=== PATIENT | female | born 1950 | race Caucasian/White ===

== ENCOUNTER → 2017-01-29 | Outpatient (CLI) | payer MEDICARE, OTHER ==
--- NOTE | 2017-01-29 11:45 | USB ---
Reason for exam: follow-up at short interval from prior study. History: Patient is postmenopausal. Family history of breast cancer in paternal aunt. Physical Findings: Nurse did not find any significant physical abnormalities on exam. US Breast RT Right breast ultrasound includes all four quadrants, the retroareolar region and axilla. Finding demonstrates no cystic or solid lesion seen. These results were verbally communicated with the patient and result sheet given to the patient on 01/29/17. ASSESSMENT: Negative, BI-RAD 1 RECOMMENDATION: Return to routine screening mammogram schedule for both breasts. Back on schedule for May 2017.
== END ==
LOC: RADUSWWP 10:28
PROVIDERS: ATTEND Family Medicine
DX: N63 Unspecified lump in breast (principal)

== ENCOUNTER → 2017-12-15 | Outpatient (CLI) | payer MEDICARE, OTHER ==
--- NOTE | 2017-12-15 15:53 | BD ---
EXAMINATION TYPE: Axial Bone Density DATE OF EXAM: 12/15/2017 COMPARISON: NONE CLINICAL HISTORY: Postmenopausal female Height: 5 FT 5 1/2 IN Weight: 203 FRAX RISK QUESTIONS: RISK FACTORS HISTORY OF: Postmenopausal woman: AGE 51 Poor Health: FAIR MEDICATIONS: Thyroid Medications: YES Which medication: SYNTHROID How Lon YEARS Additional Medications: SYNTHROID ,GLUCOPHAGE,GLIMIPIRIDE, JANUVIA, ASPIRIN, KLONOPIN, ZETIA, LASIX, NORCO, LEVOTHYROXINE,LISINOPRIL, METOPROLOL, OMEPRAZOLE, KLOR-CON, P RAVASTATIN, Additional History: PT HAS DIABETES AND NEUROPATHY EXAM MEASUREMENTS: Bone mineral densitometry was performed using the [employer] System. Bone mineral density as measured about the Lumbar spine is: ----- L1-L4(G/cm2): 1.006 T Score Values are as follows: ----- L2: -2.5 ----- L3: -0.4 ----- L4: -1.3 ----- L1-L4: -1.5 Bone mineral density has: DECREASED -2.6 SINCE 2014 Bone mineral density about the R hip (g/cm2): 0.773 Bone mineral density about the L hip (g/cm2): 0.834 T Score values are as follows: -----R Neck: -1.5 -----L Neck: -1.9 -----R Total: -1.6 -----L Total: -2.0 Bone mineral density has: DECREASED -5.3 SINCE 2014 IMPRESSION: Osteopenia (T Score between -2.5 and -1). There is slightly increased risk of fracture and the patient may be considered for treatment. Re-Screen 2-5 years. NOTE: T-SCORE=SD OF THE YOUNG ADULT MEAN.
--- NOTE | 2017-12-17 12:05 | MM ---
Reason for exam: screening (asymptomatic). Last mammogram was performed 1 year and 7 months ago. History: Patient is postmenopausal. Family history of breast cancer in paternal aunt. Physical Findings: A clinical breast exam by your physician is recommended on an annual basis and results should be correlated with mammographic findings. MG 3D Screening Mammo W/Cad Bilateral CC and MLO view(s) were taken. Prior study comparison: May 06, 2016, bilateral MG 3d screening mammo w/cad. February 13, 2015, bilateral MG diagnostic mammo w CAD LATONYA. There are scattered fibroglandular densities. Benign appearing round bilateral calcifications. There is chronic nodularity in the right breast. There is no discrete abnormality. ASSESSMENT: Benign, BI-RAD 2 RECOMMENDATION: Routine screening mammogram of both breasts in 1 year.
== END | disposition home or self-care (01) ==
LOC: RADMAMWWP 11:54
PROVIDERS: ATTEND Family Medicine
DX: Z12.31 Encounter for screening mammogram for malignant neoplasm of breast (principal); M85.80 Other specified disorders of bone density and structure, unspecified site; E55.9 Vitamin D deficiency, unspecified
CPT/HCPCS: 77063; 77067; 77080

== ENCOUNTER → 2019-12-29 | Outpatient (CLI) | payer MEDICARE, OTHER ==
--- NOTE | 2019-12-29 11:54 | XR ---
EXAMINATION TYPE: XR knee complete bilateral DATE OF EXAM: 12/29/2019 COMPARISON: None HISTORY: Bilateral knee pain TECHNIQUE: Three-view bilateral knees FINDINGS: Left knee: There is some narrowing of the lateral compartment joint space of the left knee. Medial fe moral condylar spurring is present. Patellofemoral joint space narrowing is present with posterior s uperior posterior inferior patellar spurring is no joint effusion is evident. Right knee: There is narrowing of the medial compartment joint space with medial tibial plateau and f emoral condylar spurring. Mild patellofemoral joint space narrowing is present. No joint effusion is evident. IMPRESSION: 1. Mild to moderate degenerative changes bilateral knees, greater on the right than the left.
== END | disposition home or self-care (01) ==
LOC: RADXRYALE 10:46
PROVIDERS: ATTEND Physician Assistant Medical
DX: M17.0 Bilateral primary osteoarthritis of knee (principal); M25.562 Pain in left knee

== ENCOUNTER → 2020-04-24 | Outpatient (CLI) | payer MEDICARE, OTHER ==
--- NOTE | 2020-04-26 09:01 | BD ---
EXAMINATION TYPE: Axial Bone Density DATE OF EXAM: 04/24/2020 COMPARISON: 12.15.2017 CLINICAL HISTORY: 69 year old female. E55.9 Vit D, M89.8X0 Other Disorder of Bone Height: 65 Weight: 215 FRAX RISK QUESTIONS: Nothing to note here RISK FACTORS HISTORY OF: History of Wrist Fracture: LT WRIST A CHILD Family History of Osteoporosis: YES, SISTER AND MOTHER..NO HIP FXS Postmenopausal woman: YES AT 51 Lost more than 2 inches in height since high school: YES Frequent falls: UNSTEADY Hyperparathyroidism: NO Adrenal Insufficiency: NO MEDICATIONS: Thyroid Medications: YES, SYNTHYROID FOR 20 YRS Additional Medications: BP MEDS, JENUVIA, REFLUX PRN, CHOLESTEROL MEDS, VIT D AND CALCIUM Additional History: THYROIDECTOMY, DIABETES, HYPERTENSION EXAM MEASUREMENTS: Bone mineral densitometry was performed using the [employer] System. Bone mineral density as measured about the Lumbar spine is: ----- L1-L4(G/cm2): 0.988 T Score Values are as follows: ----- L1: -2.5 ----- L2: -1.7 ----- L3: -0.6 ----- L4: -1.7 ----- L1-L4: -1.6 Bone mineral density has: Increased 0.3% since study of: 12.15.2017 Bone mineral density about the R hip (g/cm2): 0.806 Bone mineral density about the L hip (g/cm2): 0.732 T Score values are as follows: -----R Neck: -1.7 -----L Neck: -2.1 -----R Total: -1.6 -----L Total: -2.2 Bone mineral density has: Decreased -1.7% since study of: FRAX %S: THERE IS A 17.8% CHANCE FOR MAJOR OSTEOPOROTIC FX AND A 3.4% FOR HIP...PROBABILITY MCKEON FX I N 10 YRS TIME IMPRESSION: Osteopenia (T Score between -2.5 and -1) remains present. There remains slightly increased risk of fracture and the patient may be considered for treatment. Re-Screen 2-5 years. NOTE: T-SCORE=SD OF THE YOUNG ADULT MEAN.
--- NOTE | 2020-04-30 11:01 | MM ---
Reason for exam: screening (asymptomatic). Last mammogram was performed 2 years and 4 months ago. History: Patient is postmenopausal. Family history of breast cancer in paternal aunt. Physical Findings: A clinical breast exam by your physician is recommended on an annual basis and results should be correlated with mammographic findings. MG 3D Screening Mammo W/Cad Bilateral CC and MLO view(s) were taken. XCCL view(s) were taken of the right breast. Prior study comparison: December 15, 2017, bilateral MG 3d screening mammo w/cad. May 06, 2016, bilateral MG 3d screening mammo w/cad. There are scattered fibroglandular densities. Benign appearing bilateral calcifications. No significant changes when compared with prior studies. ASSESSMENT: Benign, BI-RAD 2 RECOMMENDATION: Routine screening mammogram of both breasts in 1 year.
== END | disposition home or self-care (01) ==
LOC: RADMAMWWP 12:31
PROVIDERS: ATTEND Family Medicine
DX: Z12.31 Encounter for screening mammogram for malignant neoplasm of breast (principal); M85.80 Other specified disorders of bone density and structure, unspecified site; E55.9 Vitamin D deficiency, unspecified; M89.8X0 Other specified disorders of bone, multiple sites
CPT/HCPCS: 77063; 77067; 77080

== ENCOUNTER → 2020-10-08 | Outpatient (CLI) | payer MEDICARE, OTHER | END | disposition home or self-care (01) | LOC: LABPAT 12:06 | PROVIDERS: ATTEND Orthopaedic Surgery | DX: Z01.812 Encounter for preprocedural laboratory examination (principal) | CPT/HCPCS: 87070 ==

== ENCOUNTER → 2021-02-28 | Outpatient (CLI) | payer MEDICARE, OTHER ==
[2021-02-28 14:19] LABS: INR 0.9 (<1.2)
== END | disposition home or self-care (01) ==
LOC: LABPAT 13:25
PROVIDERS: ATTEND Orthopaedic Surgery
DX: Z01.812 Encounter for preprocedural laboratory examination (principal); M17.11 Unilateral primary osteoarthritis, right knee
CPT/HCPCS: 85610; 87070

== ENCOUNTER 2021-03-05 08:38 | Inpatient (IN) | payer MEDICARE, OTHER ==
[2021-02-27 12:00] VITALS: BMI 33.3
--- NOTE | 2021-03-04 11:49 | HP ---
HISTORY AND PHYSICAL CHIEF COMPLAINT: Right knee pain. HISTORY OF PRESENT ILLNESS: The patient is a 70-year-old retired female who presents with progressive right knee pain secondary to osteoarthrosis for the past several years despite previous treatments with medications, injections, and activity modification. She notes it severely limits her normal function and activities. PAST MEDICAL HISTORY: Significant type 2 diabetes, hypercholesteremia, hypertension, neuropathy, lymphedema, and reflux disease. PAST SURGICAL HISTORY: Negative. CURRENT MEDICATIONS: Glimepiride, Januvia, Klonopin, Lasix, Lunesta, metoprolol, Mirapex, omeprazole, Pro statin. ALLERGIES: She has allergies to CRESTOR, NEURONTIN, AND VYTORIN. FAMILY HISTORY: Significant for stroke and cancer. SOCIAL HISTORY: Significant for previous tobacco use. REVIEW OF SYSTEMS: Sixteen-point review of systems otherwise reviewed and is noncontributory. PHYSICAL EXAMINATION: On examination, the patient is approximately 5 foot 6, 190 pounds of endomorphic habitus. HEENT exam is nonfocal. Neck is supple. She has painless passive motion of the right hip. Straight leg raise is negative active motion right knee -12 to 105 degrees of flexion. She is tender about the medial greater than lateral joint line. Collaterals are stable, Tiffanie is negative, Radha's is equivocal. She has genu varum alignment. Her distal neurovascular exam appears intact in the right lower extremity. Weightbearing notch, lateral and Merchant views of the right knee obtained in the office show severe medial greater than lateral compartment osteoarthrosis. It showed bone-on- bone changes and subchondral sclerosis. IMPRESSION: Right knee severe tricompartmental osteoarthrosis. RECOMMENDATIONS: I talked to the patient at length regarding her condition and treatment options. At this point, she is having persistent pain and mechanical symptoms that limit her despite extensive previous conservative measures. After thorough discussion, she opts to proceed with surgery. We will plan to proceed with right total knee arthroplasty. We will institute DVT prophylaxis postoperatively. MMODL / IJN: [id number] / MTDD
[~2021-03-05 08:38] MED LIST: ACETAMINOPHEN TAB 500 MG TAB PO PRN; DEXAMETHASONE SOD PHOSPHATE 4 MG/ML 1 ML VIAL IV ONE; MELOXICAM 7.5 MG TAB PO PRN; MIDAZOLAM 2 MG/2 ML VIAL IV PRN; ONDANSETRON 4 MG/2 ML VIAL IVP ONE; TRANEXAMIC ACID 1,000 MG in SODIUM CHLORIDE 0.9% 100 ML IVPB PRN
[2021-03-05] MEDS: LACTATED RINGERS 1,000 ML IV SCH ×2 (09:26→10:20)
[2021-03-05 09:43] LABS: Glucose,Whole Blood 180 mg/dL (75-99)
[2021-03-05] MEDS ORDERED: MIDAZOLAM 2 MG/2 ML VIAL IVP ONE ×2 (09:50→09:52)
[2021-03-05] MEDS ORDERED: ROPIVACAINE 5 MG/ML 30 ML VIAL ONE ×2 (10:19)
[2021-03-05] MEDS ORDERED: ePHEDrine SULFATE/0.9% NACL/PF 50 MG/5 ML SYRINGE IV ONE ×2 (10:19)
[2021-03-05] MEDS ORDERED: SUCCINYLCHOLINE CHLORIDE 100 MG/5 ML SYR IV ONE ×2 (10:19)
[2021-03-05] MEDS ORDERED: HYDROmorphone (PF) 1 MG/ML ONE ×2 (10:19)
[2021-03-05] MEDS ORDERED: SODIUM CHLORIDE 0.9% 100 ML BAG ONE (10:19)
[2021-03-05] MEDS ORDERED: LIDOCAINE 1% INJ 10MG/ML (20 ML MDV) ONE ×2 (10:19)
[2021-03-05] MEDS ORDERED: fentaNYL (PF) 50 MCG/ML 2 ML AMP ONE ×2 (10:19)
[2021-03-05] MEDS ORDERED: TRANEXAMIC ACID 1,000 MG/10 ML VIAL ONE (10:19)
[2021-03-05] MEDS ORDERED: PROPOFOL 10 MG/ML 20 ML VIAL IV ONE ×2 (10:19)
[2021-03-05] MEDS ORDERED: ceFAZolin 1,000 MG in SODIUM CHLORIDE 0.9% 1,000 ML IRRIGATION ONE (10:48)
[2021-03-05] MEDS ORDERED: LACTATED RINGERS 1,000 ML IV ONE (11:05)
[2021-03-05] MEDS ORDERED: HYDROcodone/APAP 5-325MG 1 EACH TAB PO PRN (11:58)
[2021-03-05] MEDS ORDERED: NALOXONE 0.4 MG/ML 1 ML VIAL IV PRN (11:58)
--- NOTE | 2021-03-05 12:25 | P.OP ---
Date of Procedure: 03/05/21 Preoperative Diagnosis: Right knee severe tricompartmental osteoarthrosis Postoperative Diagnosis: Same Procedure(s) Performed: Right total knee arthroplastycementedposterior stabilized Implants: Depuy Attune size 6 narrow cemented femoral component, size 5 cemented tibial component, 9 mm articular surface, 32 mm cemented patellar component. This is a posterior stabilized implant. Anesthesia: [facility] Surgeon: Delvin Cheng Glass Furnace Tender #1: Mikie Bah Estimated Blood Loss (ml): 50 Pathology: other (Bone fragments) Condition: stable Disposition: PACU Indications for Procedure: The patient's a 70-year-old female who presents with progressive right knee pain secondary to osteoarthrosis despite conservative measures. A discussion the risks and benefits of operative intervention versus continued conservative measures was made with the patient. She opted to proceed with surgery. Operative risks to include infection, neurovascular injury, development of blood clots, fracture, possible component failure/loosening and need for subsequent procedures was discussed. Informed consent was obtained. Operative Findings: As below Description of Procedure: The patient was brought to the operating room, and after induction of spinal anesthesia the right lower extremity was prepped and draped in a normal fashion. The tourniquet was inflated to 270 mm marker. A longitudinal incision extending 3 finger breaths above the superior pole of patella extending to the medial aspect the tibial tubercle was then made. The skin and subcutaneous tissues were divided sharply. Electrocautery was used for hemostasis. A medial parapatellar arthrotomy was performed. The medial soft tissues to include the superficial and deep portions of the medial collateral ligament were elevated subperiosteally. The patella was everted. A portion of the retropatellar fat pad was excised sharply. The anterior cruciate ligament was sacrificed. Blunt retractors were placed. A starting hole was made in the distal femur 1 cm anterior to the posterior cruciate ligament origin. An intramedullary femoral guide was then inserted planning on 5 valgus distal cut with 9 mm distal resection. The cutting block was pinned in place. The distal cut was then made. The posterior referencing sizing guide was utilized. I felt size 6 narrow was most appropriate. 3 of external rotation was built into the system and verified off the trans-epicondylar axis and the posterior condyles. The cutting block was pinned in place. The anterior, posterior, and chamfer cuts then made. Bone fragments were removed. The intercondylar guide was placed and the notch cut was made with a sagittal saw. The bone block was removed in one fragment. The trial component was then placed. There is good anterior to posterior and medial to lateral fit. The distal peg holes were drilled. The trial component was removed. Attention was then paid towards preparing the proximal femur. An extra medullary guide was utilized in line with the tibial shaft and second metatarsal distally. I planned on 2 mm resection from the medial compartment. The cutting block was pinned in place. The proximal tibial cut was then made. The bone was removed in one fragment. The remnants of the medial and lateral menisci were excised at the capsular junction with electrocautery. The tibia sized most appropriately at size 5. The trial femoral and tibial components were placed along with a 9 mm articular surface. I was able to obtain full flexion and extension with internal and external rota tion. After several flexion and extension cycles, the tibial rotation was marked with electrocautery line with the medial one third of the tibial tubercle. Attention was then paid towards preparing the patella. A patella reamer was utilized taking stem to 14 mm of bone stock. A good flush cut was made. The patella sized most appropriately 32 mm. The peg holes were drilled. The trial components placed. I had good patellofemoral tracking with no hands technique. The trial components were then removed. The tibia was prepared in the appropriate rotation with appropriate drill and keel punch. The posterior osteophytes were removed with a curved osteotome. The flexion and extension gaps were checked and felt to be symmetric at 9 mm. A trial components were then removed. The bony surfaces were prepared with pulsatile lavage and dried. The tibial component was then cemented place was fully seated. Excess cement was removed. The femoral component cemented place and was fully seated. Excess cement was removed. The trial 9 mm articular surface was placed and the knee was put in full extension. The patella component was cemented place. After the cement had sufficiently hardened, the knee was again taken through a range of motion. Again I was able to obtain full flexion and extension with varus and valgus stress. The trial 9 mm articular surface was removed and the final one inserted. This was fully seated. Care was taken to avoid any soft tissue interposition. Pulsatile lavage was again utilized. The medial parapatellar arthrotomy was closed with #2 Ethibond suture. The tourniquet was deflated with approximately 60 minutes total tourniquet time. Final hemostasis was obtained with the cautery. There was minimal bleeding therefore a deep drain was not placed. The subcutaneous tissues were reapproximated with interrupted 2-0 Vicryl sutures. The skin was reapproximated with 3-0 subcuticular strata fix suture. Skin tape and adhesive was applied. A sterile dressing was applied. The patient was awoken from sedation and transferred to recovery room in good condition. Blood loss was estimated at 50 mL. No complications were incurred. Sponge and needle counts were correct at the end of the case. Mikie BATISTA assisted during the major components of this case to include exposure, bone resection, implantation, and closure.
[2021-03-05] MEDS: fentaNYL (PF) 50 MCG/ML 2 ML AMP IV PRN ×4 (12:33→13:01)
[2021-03-05 12:51] LABS: Glucose,Whole Blood 223 mg/dL (75-99)
[2021-03-05] MEDS ORDERED: diphenhydrAMINE 50 MG/ML 1 ML VIAL ONE (12:52)
[2021-03-05] MEDS ORDERED: INSULIN ASPART (NovoLOG) 100 UNIT/ML VIAL SQ ONE (12:58)
--- NOTE | 2021-03-05 13:02 | XR ---
EXAMINATION TYPE: XR knee limited RT DATE OF EXAM: 03/05/2021 COMPARISON: 12/29/2019 HISTORY: Postop knee replacement TECHNIQUE: 2 view right knee FINDINGS: Tibial and femoral components of the endplates. No significant joint effusion is evident. P ostsurgical soft tissue changes are noted. No acute fractures are evident. IMPRESSION: 1. No acute fractures post knee replacement
--- NOTE | 2021-03-05 13:16 | P.ANPRN ---
Procedure Note - Anesthesia - Nerve Block Performed Right Adductor Canal Time Out Performed: Yes (09:48) Date of Procedure: 03/05/21 Procedure Start Time: 48 Procedure Stop Time: 10:01 Location of Patient: PreOp Indication: Acute Post-Operative Pain, Requested by Surgeon (Dr Thierno Kraft) Sedation Type: Sedate with meaningful contact maintained Preparation: Sterile Prep, Sterile Dressing Position: Supine Catheter: Indwelling Needle Types: Pajunk Needle Gauge: 21 Ultrasound used to visualize needle placement: Yes Ultrasound used to observe medication spread: Yes Injectate: 0.5% Ropivacaine (see comment for volume) (15cc) Blood Aspirated: No Pain Paresthesia on Injection Noted: No Resistance on Injection: Normal Image Stored and Saved: Yes Events: Uneventful and Well Tolerated
--- NOTE | 2021-03-05 13:24 | P.ANPRN ---
Procedure Note - Anesthesia - Nerve Block Performed Right iPack Time Out Performed: Yes Date of Procedure: 03/05/21 Procedure Start Time: 10:02 Procedure Stop Time: 10:11 Location of Patient: PreOp Indication: Acute Post-Operative Pain, Requested by Surgeon (Dr Cheng) Sedation Type: Sedate with meaningful contact maintained Preparation: Sterile Prep Position: Supine Catheter: None Needle Types: Pajunk Needle Gauge: 21 Ultrasound used to visualize needle placement: Yes Ultrasound used to observe medication spread: Yes Injectate: 0.5% Ropivacaine (see comment for volume) (15cc) Blood Aspirated: No Pain Paresthesia on Injection Noted: No Resistance on Injection: Normal Image Stored and Saved: Yes Events: Uneventful and Well Tolerated
[2021-03-05] MEDS: HYDROmorphone 0.5 MG/0.5 ML SYRINGE IVP PRN ×2 (13:58→20:38)
[2021-03-05] MEDS ORDERED: PANTOPRAZOLE 40 MG TABLET PO PRN (15:26)
[2021-03-05 16:33] LABS: Glucose,Whole Blood 385 mg/dL (75-99)
[2021-03-05] MEDS: HYDROcodone/APAP 7.5-325MG 1 EACH TAB PO PRN (16:54)
[2021-03-05] MEDS: INSULIN ASPART (NovoLOG) 100 UNIT/ML VIAL SQ SCH ×2 (16:55→21:18)
--- NOTE | 2021-03-05 18:20 | CONS ---
CONSULTATION DATE OF SERVICE: 03/05/2021 REASON FOR CONSULTATION: Advice regarding hypertension, hyperlipidemia, and chronic smoking. HISTORY OF PRESENT ILLNESS: This 70-year-old with the past medical history of diabetes, GERD, DJD being followed by Thierno Patton in the outpatient setting, underwent right total knee arthroplasty by Dr. Cheng. There is no history of fever or rigors. No history of headache, loss of consciousness, seizures, chest pain, palpitations. Complains of some minimal knee pain at this time. PAST MEDICAL: Diabetes, GERD, hypertension, history of DJD, history of pneumonia, history hypothyroidism. MEDICATIONS: Home medications are reviewed and include , Klonopin, Pravachol, Mirapex, K-Dur, Prilosec, Synthroid, [place],, Lopressor, , aspirin. Doses are reviewed. ALLERGIES: VYTORIN, NEURONTIN, LYRICA, CRESTOR, MORPHINE. FAMILY HISTORY: History of lung cancer in the family. SOCIAL HISTORY: Remote history of smoking. No history of alcohol intake. REVIEW OF SYSTEMS: ENT No history of diminished hearing or vision. CARDIOVASCULAR No angina or palpitations. RESPIRATORY No cough, no hemoptysis. GI No nausea, vomiting, or diarrhea. No dysuria or hematuria. NERVOUS No numbness or weakness. ALLERGY/IMMUNOLOGY No asthma or hayfever. MUSCULOSKELETAL As mentioned earlier. HEMATOLOGY/ONCOLOGY Negative. ENDOCRINE As mentioned earlier. CONSTITUTIONAL As mentioned earlier. DERMATOLOGY Negative. RHEUMATOLOGY Negative, PSYCHIATRY As mentioned earlier. PHYSICAL EXAMINATION: Alert and oriented x3. Pulse 84, blood pressure 150/85, respiration 18, temperature 97.8, pulse ox 98% on room air. HEENT: Conjunctivae normal. Oral mucosa moist. NECK: No jugular venous distention. No lymph node enlargement. CARDIOVASCULAR: S1, S2, muffled. No S3, no S4, RESPIRATORY: Diminished breath sounds at the bases. No rhonchi, no crackles. ABDOMEN: Soft. LEGS: Status post knee arthroplasty. NERVOUS SYSTEM: Higher functions as mentioned earlier. Moves all four limbs. No focal motor or sensory deficits. LYMPHATICS: No lymph node in neck or axilla. SKIN: No rash. JOINTS: No active deforming arthropathy. Otherwise, as mentioned earlier. LAB STUDIES: Accu-Cheks 182, 223. The previous labs are hematology and coags within normal limits prior to admission. ASSESSMENT: 1. Status post right total knee joint arthroplasty for severe degenerative joint disease. 2. Diabetes mellitus type 2. 3. Gastroesophageal reflux disease. 4. Hyperlipidemia. 5. Hypertension. 6. History of pneumonia. 7. History of hypothyroidism. 8. History of DJD. 9. History of anxiety, depression. 10.History of nicotine dependence. 11.Obesity with body mass of 36.5. 12.FULL CODE. RECOMMENDATIONS: In this 70-year-old woman who presented with multiple complex medical issues, at this time I recommend to continue current symptomatic treatment, resume the home medication. Monitor blood sugars closely. DVT prophylaxis. Incentive spirometry. We will follow the patient closely with you. The patient will be asked to follow with primary physician after discharge. Thank you, Dr. Cheng, for letting us participate in this patient's care. ERNIE / GALLITON: [id number] / MTDD
[2021-03-05] MEDS: SENNOSIDES-DOCUSATE SODIUM 1 EACH TAB PO SCH (20:39)
[2021-03-05] MEDS: clonazePAM 1 MG TAB PO SCH (20:39)
[2021-03-05] MEDS: PRAVASTATIN SODIUM 80 MG TAB PO SCH (20:39)
[2021-03-05] MEDS: METOPROLOL TARTRATE 50 MG TAB PO SCH (20:39)
[2021-03-05] MEDS: PRAMIPEXOLE 0.5 MG TAB PO SCH (20:39)
[2021-03-05] MEDS: EZETIMIBE 10 MG TAB PO SCH (20:39)
[2021-03-05] MEDS: lisinopriL 5 MG TAB PO SCH (20:39)
[2021-03-05] MEDS: NON FORMULARY DRUG (Omega-3 Acid Ethyl Esters [Lovaza] 1 GM Capsule) PO SCH (20:40)
[2021-03-05 20:53] LABS: Glucose,Whole Blood 367 mg/dL (75-99)
[2021-03-05] MEDS: TEMAZEPAM 15 MG CAP PO SCH (21:18)
[2021-03-06] MEDS: HYDROcodone/APAP 7.5-325MG 1 EACH TAB PO PRN ×2 (00:07→05:50)
[2021-03-06] MEDS: LACTATED RINGERS 1,000 ML IV SCH (04:49)
[2021-03-06] MEDS: LEVOTHYROXINE 125 MCG TAB PO SCH (05:35)
--- NOTE | 2021-03-06 07:28 | P.PN ---
Progress Note - Text Progress Note Date: 03/06/21 Postoperative day # 1 status post total knee arthroplasty, and adductor canal catheter placed for postoperative analgesia, a catheter was told yesterday by mistake, and currently complaining of pain is not controlled with the oral [place], recommend IV Dilaudid 0.5 mg every 2 hours when necessary, and [place] 10/325 every 6 hours when necessary once patient discharged home
[2021-03-06] MEDS: HYDROmorphone 0.5 MG/0.5 ML SYRINGE IVP PRN ×3 (07:34→17:57)
[2021-03-06] MEDS ORDERED: HYDROcodone/APAP 10-325MG 1 EACH TAB PO PRN (07:38)
[2021-03-06] MEDS: LINAGLIPTIN 5 MG TABLET PO SCH (07:40)
[2021-03-06] MEDS: METOPROLOL TARTRATE 50 MG TAB PO SCH ×2 (07:40→20:18)
[2021-03-06] MEDS: clonazePAM 1 MG TAB PO SCH ×2 (07:41→20:18)
[2021-03-06] MEDS: INSULIN ASPART (NovoLOG) 100 UNIT/ML VIAL SQ SCH ×4 (07:41→20:35)
[2021-03-06] MEDS: POTASSIUM CHLORIDE ER 10 MEQ TAB.ER.PRT PO SCH (07:41)
[2021-03-06] MEDS: FUROSEMIDE 20 MG TAB PO SCH (07:41)
[2021-03-06] MEDS: ASPIRIN 81 MG PO SCH (07:41)
[2021-03-06] MEDS: GLIMEPIRIDE 1 MG TAB PO SCH (07:42)
[2021-03-06] MEDS: ENOXAPARIN 30 MG/0.3 ML SYRINGE SQ SCH ×2 (07:42→20:18)
[2021-03-06 07:46] LABS: Glucose,Whole Blood 209 mg/dL (75-99)
[2021-03-06] MEDS: NON FORMULARY DRUG (Omega-3 Acid Ethyl Esters [Lovaza] 1 GM Capsule) PO SCH ×2 (07:53→20:19)
--- NOTE | 2021-03-06 10:26 | P.PN ---
Subjective Progress Note Date: 03/06/21 Principal diagnosis: Right knee osteoarthritis Patient was seen at bedside this morning. Patient is lying semirecumbent in bed. Patient says she has been in a lot of pain since surgery yesterday. Patient says most her pain is all around her knee. She describes pain in her knee as burning sensation. She says she has been having a difficult time getting her pain under control. She says she has been icing her knee throughout the night. She says she was only able to sleep 3 hours. She says she is not ready to go home today. Patient says she has not had bowel movement yet, however, patient says she has passed gas. Patient denies chest pain, fever, chest breath, nausea, vomiting, change in vision, loss of bowel/bladder control. Objective - Vital Signs Vital signs: Vital Signs Temp 97.6 F 03/06/21 08:00 Pulse 95 03/06/21 08:00 Resp 13 03/06/21 08:00 BP 146/68 03/06/21 08:00 Pulse Ox 98 03/06/21 08:00 Intake & Output 03/05/21 03/06/21 03/06/21 18:59 06:59 18:59 Intake Total 2141 Output Total 50 Balance 1 Weight 99.4 kg Intake: IV 1601 Oral 540 Output: Estimated Blood Loss 50 Other: Voiding Method Toilet # Voids 1 1 - Exam Right knee: Incision is clean, dry, and intact. The exofin fusion tape is in good condition. There is moderate soft tissue swelling and ecchymosis surrounding the medial and lateral aspects of the incision. Calf is soft, no tenderness with palpation. Plantar flexion, dorsiflexion, EHL, FHL are intact. Sensory exam to light touch throughout the extremity is intact, dorsal pedis pulses 2+. - Labs Labs: Abnormal Lab Results - Last 24 Hours (Table) 03/05/21 03/05/21 03/05/21 Range/Units 12:50 16:30 20:46 POC Glucose (mg/dL) 223 H 385 H 367 H (75-99) mg/dL 03/06/21 Range/Units 07:30 POC Glucose (mg/dL) 209 H (75-99) mg/dL Assessment and Plan Assessment: Right knee osteoarthritis Plan: 1. Right knee osteoarthritis - right total knee arthroplasty performed yesterday, 03/05/2021. Patient seen at bedside this morning. Patient in moderate amount of pain this morning. Plan to adjust some pain medications. 2. Appreciate medical management 3. Pain management - switch from Hydrocodome 10 to Oxycodone 5mg/325mg. Dilaudid 0.5 mg IVPB only when necessary 4. GI prophylaxis/DVT prophylaxis - senna. Lovenox. 5. Encourage incentive spirometer use 6. PT/OT - weightbearing as tolerated with walker for assistance. 7. Discharge planning - plan to discharge home tomorrow versus Thursday. Pain needs to be under better control before discharging home Time with Patient: Less than 30
[2021-03-06 10:58] LABS: Basophils # (A) 0.01 X 10*3/uL (0.00-0.10); Basophils % (A) 0.1 %; Eosinophils # (A) 0 X 10*3/uL (0.04-0.35); Eosinophils % (A) 0 %; HCT 31.2 % (37.2-46.3); HGB 9.8 g/dL (12.0-15.0); Lymphocytes # (A) 1.14 X 10*3/uL (0.90-5.00); Lymphocytes % (A) 10.3 %; MCH 30.4 pg (27.0-32.0); MCHC 31.4 g/dL (32.0-37.0); MCV 96.9 fL (80.0-97.0); Mean Platelet Volume 10.2 fL (9.5-12.2); Monocytes # (A) 1.16 X 10*3/uL (0.20-1.00); Monocytes % (A) 10.5 %; Neutrophils # (A) 8.67 X 10*3/uL (1.80-7.70); Neutrophils % (A) 78.7 %; Platelet Count 242 X 10*3/uL (140-440); RBC 3.22 X 10*6/uL (4.10-5.20); RDW 13.5 % (11.5-14.5); WBC 11.02 X 10*3/uL (4.50-10.00)
[2021-03-06] MEDS: oxyCODONE-APAP 5-325MG 1 EACH TAB PO PRN ×3 (11:17→20:18)
[2021-03-06 12:10] LABS: Glucose,Whole Blood 197 mg/dL (75-99)
--- NOTE | 2021-03-06 14:26 | PN ---
PROGRESS NOTE DATE OF SERVICE: 03/06/2021 This 70-year-old woman who was admitted with right total knee arthroplasty is being closely monitored. Patient is complaining of some pain. No chest pain. No palpitations. No fever. PHYSICAL EXAMINATION: Alert and oriented x3. Pulse 95, blood pressure 146/58, respirations 13, temperature 97.6, pulse ox 98% on room air. HEENT: Conjunctivae normal. NECK: No jugular venous distention. CARDIOVASCULAR: S1, S2 muffled. RESPIRATION: Breath sounds diminished at the bases. No rhonchi. No crackles. ABDOMEN: Soft. LEGS: Status post right knee arthroplasty. NERVOUS SYSTEM: No focal deficit. LABS: WBC 11.2, hemoglobin 9.9, glucose 209 and 197. ASSESSMENT: 1. Status post right total knee arthroplasty for severe degenerative joint disease. 2. Diabetes mellitus, type 2. 3. Gastroesophageal reflux disease. 4. Hyperlipidemia. 5. Hypertension. 6. History of pneumonia. 7. History of hypothyroidism. 8. History of degenerative joint disease. 9. Anxiety, depression. 10.History of nicotine dependence. 11.Obesity with body mass index of 36.5. 12.FULL CODE. RECOMMENDATIONS AND DISCUSSION: I recommend to continue current medications, continue with symptomatic treatment. Otherwise, pain management, DVT prophylaxis. Closely follow with Orthopedic Surgery. Monitor blood sugars closely. Continue the insulin and corrective scale also. Further recommendations to follow. MMODL / IJN: [id number] /
[2021-03-06 16:47] LABS: Glucose,Whole Blood 142 mg/dL (75-99)
[2021-03-06] MEDS: SENNOSIDES-DOCUSATE SODIUM 1 EACH TAB PO SCH (20:17)
[2021-03-06] MEDS: PRAVASTATIN SODIUM 80 MG TAB PO SCH (20:17)
[2021-03-06] MEDS: TEMAZEPAM 15 MG CAP PO SCH (20:18)
[2021-03-06] MEDS: lisinopriL 5 MG TAB PO SCH (20:18)
[2021-03-06] MEDS: PRAMIPEXOLE 0.5 MG TAB PO SCH (20:19)
[2021-03-06] MEDS: EZETIMIBE 10 MG TAB PO SCH (20:19)
[2021-03-06 20:26] LABS: Glucose,Whole Blood 264 mg/dL (75-99)
[2021-03-07] MEDS: oxyCODONE-APAP 5-325MG 1 EACH TAB PO PRN ×4 (00:28→22:19)
[2021-03-07] MEDS: HYDROmorphone 0.5 MG/0.5 ML SYRINGE IVP PRN ×5 (03:41→18:16)
[2021-03-07] MEDS: LACTATED RINGERS 1,000 ML IV SCH (05:12)
[2021-03-07] MEDS: LEVOTHYROXINE 125 MCG TAB PO SCH (05:58)
[2021-03-07 07:24] LABS: Glucose,Whole Blood 220 mg/dL (75-99)
[2021-03-07] MEDS: METOPROLOL TARTRATE 50 MG TAB PO SCH ×2 (07:31→22:19)
[2021-03-07] MEDS: ASPIRIN 81 MG PO SCH (07:32)
[2021-03-07] MEDS: clonazePAM 1 MG TAB PO SCH ×2 (07:33→22:20)
[2021-03-07] MEDS: ENOXAPARIN 30 MG/0.3 ML SYRINGE SQ SCH ×2 (07:33→22:20)
[2021-03-07] MEDS: LINAGLIPTIN 5 MG TABLET PO SCH (07:33)
[2021-03-07] MEDS: INSULIN ASPART (NovoLOG) 100 UNIT/ML VIAL SQ SCH ×4 (07:33→22:21)
[2021-03-07] MEDS: POTASSIUM CHLORIDE ER 10 MEQ TAB.ER.PRT PO SCH (07:33)
[2021-03-07] MEDS: FUROSEMIDE 20 MG TAB PO SCH (07:33)
[2021-03-07] MEDS: NON FORMULARY DRUG (Omega-3 Acid Ethyl Esters [Lovaza] 1 GM Capsule) PO SCH ×2 (07:34→22:22)
[2021-03-07] MEDS: GLIMEPIRIDE 1 MG TAB PO SCH (08:29)
[2021-03-07] MEDS ORDERED: CYCLOBENZAPRINE 10 MG TAB PO PRN (08:43)
[2021-03-07] MEDS ORDERED: ACETAMINOPHEN TAB 325 MG TAB PO PRN (08:45)
--- NOTE | 2021-03-07 08:54 | P.PN ---
Subjective Progress Note Date: 03/07/21 Principal diagnosis: Right knee osteoarthritis Patient was seen at bedside this morning. Patient is lying semirecumbent in bed. Patient says she has been in a lot of pain since surgery. Patient says most her pain is all around her knee. She describes pain in her knee as burning sensation. Patient says ice does help with this somewhar. She says she has been having a difficult time getting her pain under control. She says she has been icing her knee throughout the night. She says she was able to sleep a litle better last night. She says she is not ready to go home today. Patient says she has not had bowel movement yet, however, patient says she has passed gas. Patient denies chest pain, fever, chest breath, nausea, vomiting, change in vision, loss of bowel/bladder control. Objective - Vital Signs Vital signs: Vital Signs Temp 98.4 F 03/07/21 07:33 Pulse 97 03/07/21 07:33 Resp 16 03/07/21 07:33 BP 132/85 03/07/21 07:33 Pulse Ox 93 L 03/07/21 07:33 Intake & Output 03/06/21 03/07/21 03/07/21 18:59 06:59 18:59 Intake Total 540 400 Balance 540 400 Intake: Intake, IV Titration 160 Amount Lactated Ringers 1,000 ml 160 @ 20 mls/hr IV .Q24H [facility] Rx#:[id number] Oral 540 240 Other: Voiding Method Toilet Diaper # Voids 1 4 - Exam Right knee: Incision is clean, dry, and intact. The exofin fusion tape is in good condition. There is moderate soft tissue swelling and ecchymosis surrounding the medial and lateral aspects of the incision. Calf is soft, no tenderness with palpation. Plantar flexion, dorsiflexion, EHL, FHL are intact. Sensory exam to light touch throughout the extremity is intact, dorsal pedis pulses 2+. - Labs CBC & Chem 7: 03/06/21 06:43 Labs: Abnormal Lab Results - Last 24 Hours (Table) 03/06/21 03/06/21 03/06/21 Range/Units 06:43 12:05 16:42 WBC 11.02 H (4.50-10.00) X 10*3/uL RBC 3.22 L (4.10-5.20) X 10*6/uL Hgb 9.8 L (12.0-15.0) g/dL Hct 31.2 L (37.2-46.3) % MCHC 31.4 L (32.0-37.0) g/dL Neutrophils # 8.67 H (1.80-7.70) X 10*3/uL Monocytes # 1.16 H (0.20-1.00) X 10*3/uL Eosinophils # 0 L (0.04-0.35) X 10*3/uL POC Glucose (mg/dL) 197 H 142 H (75-99) mg/dL 03/06/21 03/07/21 Range/Units 20:24 07:23 WBC (4.50-10.00) X 10*3/uL RBC (4.10-5.20) X 10*6/uL Hgb (12.0-15.0) g/dL Hct (37.2-46.3) % MCHC (32.0-37.0) g/dL Neutrophils # (1.80-7.70) X 10*3/uL Monocytes # (0.20-1.00) X 10*3/uL Eosinophils # (0.04-0.35) X 10*3/uL POC Glucose (mg/dL) 264 H 220 H (75-99) mg/dL Assessment and Plan Assessment: Right knee osteoarthritis POD #2 s/p right total knee arthroplasty Plan: 1. Right knee osteoarthritis - right total knee arthroplasty performed 03/05/2021. Patient seen at bedside this morning. Patient in moderate amount o f pain this morning. Plan to adjust some pain medications. Continue to elevate and ice knee throughout day 2. Appreciate medical management 3. Pain management - Continue Oxycodone 5mg/325mg q4h/prn. Add Flexeril 10 mg BID for muscle spasms. Add Tylenol 650 q6h for pain control between Oxycodone doses. Do not go over 4,000mg tylenol per day. Dilaudid 0.5 mg IVPB only when necessary 4. GI prophylaxis/DVT prophylaxis - senna. Lovenox. 5. Encourage incentive spirometer use 6. PT/OT - weightbearing as tolerated with walker for assistance. 7. Discharge planning - plan to discharge home tomorrow. Pain needs to be under better control before discharging home Time with Patient: Less than 30
[2021-03-07 11:49] LABS: Glucose,Whole Blood 194 mg/dL (75-99)
--- NOTE | 2021-03-07 13:56 | PN ---
PROGRESS NOTE DATE OF SERVICE: 03/07/2021 This 70-year-old woman who was admitted after right total knee arthroplasty is improving significantly. The patient is complaining of some pain. PT/OT evaluated the patient for possible rehab. No chest pain. No palpitations. No fever. PHYSICAL EXAMINATION: Alert and oriented x3. Pulse is 97, blood pressure 132/84, respiration 16, temperature 98.4, pulse ox 93% on room air. HEENT: Conjunctivae normal. NECK: No jugular venous distention. CARDIOVASCULAR: S1, S2 muffled. RESPIRATION: Breath sounds diminished at the bases. Scattered rhonchi. ABDOMEN: Soft. NERVOUS SYSTEM: No focal deficit. LABS: Accu-Cheks noted. WBC 11.02, hemoglobin 9.8. ASSESSMENT: 1. Status post right total knee arthroplasty for severe degenerative joint disease. 2. Diabetes mellitus, type 2. 3. Gastroesophageal reflux disease. 4. Hypertension. 5. Hyperlipidemia. 6. History of pneumonia. 7. History of hypothyroidism. 8. History of degenerative joint disease. 9. History of anxiety, depression. 10.History of nicotine dependence. 11.Obesity with body mass index of 36.5. 12.FULL CODE. RECOMMENDATIONS AND DISCUSSION: I recommend to continue current medications, continue symptomatic treatment. I would recommend a portable chest x-ray for complete evaluation. Otherwise, repeat labs tomorrow. Further recommendations to follow. Blood sugars are improving. MMODL / IJN: [id number] /
--- NOTE | 2021-03-07 14:18 | XR ---
EXAMINATION TYPE: XR chest 1V portable DATE OF EXAM: 03/07/2021 COMPARISON: None INDICATION: CHF TECHNIQUE: Single frontal view of the chest is obtained. FINDINGS: The heart size is normal. The pulmonary vasculature is normal. The lungs are clear. IMPRESSION: 1. No acute pulmonary process.
[2021-03-07 16:37] LABS: Glucose,Whole Blood 202 mg/dL (75-99)
[2021-03-07 17:11] LABS: Hemoglobin A1C 7.5 % (4.0-6.0)
[2021-03-07 20:41] LABS: Glucose,Whole Blood 212 mg/dL (75-99)
[2021-03-07] MEDS: lisinopriL 5 MG TAB PO SCH (22:19)
[2021-03-07] MEDS: PRAVASTATIN SODIUM 80 MG TAB PO SCH (22:19)
[2021-03-07] MEDS: TEMAZEPAM 15 MG CAP PO SCH (22:19)
[2021-03-07] MEDS: SENNOSIDES-DOCUSATE SODIUM 1 EACH TAB PO SCH (22:20)
[2021-03-07] MEDS: PRAMIPEXOLE 0.5 MG TAB PO SCH (22:21)
[2021-03-07] MEDS: EZETIMIBE 10 MG TAB PO SCH (22:21)
[2021-03-08 02:54] VITALS: TEMP 97.9
[2021-03-08] MEDS: HYDROmorphone 0.5 MG/0.5 ML SYRINGE IVP PRN (03:07)
[2021-03-08] MEDS: LACTATED RINGERS 1,000 ML IV SCH (05:36)
[2021-03-08] MEDS: LEVOTHYROXINE 125 MCG TAB PO SCH (05:39)
[2021-03-08 06:03] LABS: Basophils % (A) 0 %; Eosinophils # (A) 0.2 k/uL (0-0.7); Eosinophils % (A) 3 %; HCT 30.1 % (34.0-46.0); HGB 9.7 gm/dL (11.4-16.0); Hypochromasia Slight; Lymphocytes # (A) 1.3 k/uL (1.0-4.8); Lymphocytes % (A) 20 %; MCH 31.5 pg (25.0-35.0); MCHC 32.2 g/dL (31.0-37.0); MCV 97.8 fL (80.0-100.0); Mean Platelet Volume 7.4; Monocytes # (A) 0.4 k/uL (0-1.0); Monocytes % (A) 6 %; Neutrophils # (A) 4.5 k/uL (1.3-7.7); Neutrophils % (A) 69 %; Platelet Count 196 k/uL (150-450); RBC 3.08 m/uL (3.80-5.40); RDW 13.9 % (11.5-15.5); WBC 6.6 k/uL (3.8-10.6)
[2021-03-08 06:12] LABS: African American GFR (CKD) >90 (>60 ml/min/1.73 sqM); Anion Gap 3 mmol/L; Blood Urea Nitrogen 20 mg/dL (7-17); Calcium 8.7 mg/dL (8.4-10.2); Carbon Dioxide 28 mmol/L (22-30); Chloride 102 mmol/L (98-107); Glucose 216 mg/dL (74-99); Non-African American GFR(CKD) 88 (>60 ml/min/1.73 sqM); Potassium 4.3 mmol/L (3.5-5.1); Sodium 133 mmol/L (137-145)
[2021-03-08 06:53] LABS: Glucose,Whole Blood 236 mg/dL (75-99)
[2021-03-08] MEDS: INSULIN ASPART (NovoLOG) 100 UNIT/ML VIAL SQ SCH ×2 (07:35→11:47)
[2021-03-08] MEDS: LINAGLIPTIN 5 MG TABLET PO SCH (07:35)
[2021-03-08] MEDS: oxyCODONE-APAP 5-325MG 1 EACH TAB PO PRN ×2 (07:35→11:47)
[2021-03-08] MEDS: FUROSEMIDE 20 MG TAB PO SCH (07:35)
[2021-03-08] MEDS: ENOXAPARIN 30 MG/0.3 ML SYRINGE SQ SCH (07:35)
[2021-03-08] MEDS: METOPROLOL TARTRATE 50 MG TAB PO SCH (07:36)
[2021-03-08] MEDS: clonazePAM 1 MG TAB PO SCH (07:36)
[2021-03-08] MEDS: ASPIRIN 81 MG PO SCH (07:36)
[2021-03-08] MEDS: GLIMEPIRIDE 1 MG TAB PO SCH (07:36)
[2021-03-08] MEDS: POTASSIUM CHLORIDE ER 10 MEQ TAB.ER.PRT PO SCH (07:36)
[2021-03-08] MEDS: NON FORMULARY DRUG (Omega-3 Acid Ethyl Esters [Lovaza] 1 GM Capsule) PO SCH (07:37)
[2021-03-08 07:59] VITALS: BP 110/76; PULSE 92; RESP 16
[2021-03-08] MEDS ORDERED: ERGOCALCIFEROL 1,250 MCG (50,000 IU) CAPSULE PO SCH (09:00)
--- NOTE | 2021-03-08 09:22 | P.DS ---
Providers Date of admission: 03/06/21 15:03 Expected date of discharge: 03/08/21 Attending physician: Delvin Cheng Consults: 03/05/21 12:01 Consult Physician Routine Consulting Provider: Laura Lezama Consult Reason/Comments: Medical Management s/p right total knee arthroplasty Do you want consulting provider notified?: Yes [facility] care physician[facility] Course: Date of admission: 03/05/2021 Date of discharge: 03/08/2021 Admission diagnosis: Right knee osteoarthritis Discharge diagnosis: Same Attending physician: Dr. Cheng Surgical procedures: Right total knee arthroplasty Brief history: Patient is a 70-year-old female with a history of progressive primary right knee osteoarthritis. At this point patient has failed conservative treatment measures and has opted to proceed with a elective right total knee arthroplasty. Hospital course: Details of patient's surgery can be found in operative report. Patient tolerated the procedure well and was subsequently transported to orthopedic floor. Patient's orthopedic and medical care was provided daily. Patient had daily laboratory tests performed for evaluation of overall blood counts. Patient had daily physical therapy to include strengthening range of motion as well as education with walker ambulation. Patient was treated with Lovenox for their postoperative DVT prophylaxis during their inpatient stay. Patient was noted to have a relatively uneventful postoperative course. Patient reported satisfactory pain control with oral pain medications by postoperative day 3. Patient showed satisfactory progress with physical therapy. Patient moved steadily through the program and had no difficulty meeting the goals by postoperative day 3. Given patient's otherwise satisfactory course and having met physical therapy goals, plan is to discharge patient to [facility] rehab on postoperative day 3. Discharge condition/disposition: Patient will be discharged to [facility] rehab in stable condition. Discharge medications: Instructions are given on resumption of patient's normal daily medications per primary care recommendation, in addition patient will be prescribed Oxycodone 5mg/325 mg; Eliquis 2.5 mg BID x 2 weeks; Colace. Discharge instructions: 1. Wound care and infection precautions, keep incision dry and covered while showering, no lotions, creams, moisturizers. No soaking, tubs, pools, hottubs. Do not scrub over the incision. 2. Weight-bear as tolerated with walker / cane until follow-up. 3. Ice and elevate when necessary. Do not exceed 20 minutes per hour with ice pack. 4. Utilize compression sleeve until seen at first follow up appointment. 5. Visiting nursing care. 6. Home physical therapy including home CPM. 7. Pain meds and anticoagulants per prescription. 8. Pain medication has potential to cause constipation. Increase oral fluid and fiber intake. Contact primary care provider if you have not had a bowel movement within 48 hours after discharge 9. No anti-inflammatory medication until discussed at first post operative visit, this including Motrin, Aleve, Mobic, Diclofenac. 10. Follow up in office at 2 weeks postop with Yves Wade PA-C / Mikie Bah PA-C 11. Follow up with your primary care doctor 7-10 days after discharge. 12. Contact [facility] with any questions, . Assessment: Right knee osteoarthritis Procedures: Right total knee arthroplasty Patient Condition at Discharge: Good Plan - Discharge Summary Discharge Rx Participant: Yes New Discharge Prescriptions: New oxyCODONE HCL/ACETAMINOPHEN [oxyCODONE HCL/ACETAMINOPHEN 5-325] 1 tab PO Q8H #28 tab Apixaban [Eliquis] 2.5 mg PO BID #60 tab Cyclobenzaprine [Flexeril] 10 mg PO HS #14 tab No Action Ergocalciferol [Vitamin D2 (1250 Mcg = 85721 Iu)] 50,000 unit PO FR [place]-3 Acid Ethyl Esters [Lovaza] 1 gm PO BID clonazePAM [KlonoPIN] 2 mg PO BID Eszopiclone [Lunesta] 2 mg PO HS Omeprazole [PriLOSEC] 20 mg PO DAILY PRN PRN Reason: reflux Pravastatin Sodium [Pravachol] 80 mg PO HS Potassium Chloride ER [K-Dur 10] 10 meq PO DAILY sitaGLIPtin [Januvia] 100 mg PO DAILY Metoprolol Tartrate [Lopressor] 100 mg PO BID Ezetimibe [Zetia] 10 mg PO HS Aspirin [Adult Low Dose Aspirin EC] 81 mg PO DAILY Furosemide [Lasix] 20 mg PO DAILY HYDROcodone/APAP 10-325MG [[place] 10-325] 1 tab PO Q6HR PRN PRN Reason: Pain Glimepiride [Amaryl] 1 mg PO DAILY lisinopriL [Zestril] 5 mg PO HS Levothyroxine Sodium [Synthroid] 125 mcg PO DAILY Pramipexole Di-HCl [Mirapex] 0.5 mg PO HS Discharge Medication List Aspirin [Adult Low Dose Aspirin EC] 81 mg PO DAILY 02/27/21 [History] Ergocalciferol [Vitamin D2 (1250 Mcg = 50822 Iu)] 50,000 unit PO FR 02/27/21 [History] Eszopiclone [Lunesta] 2 mg PO HS 02/27/21 [History] Ezetimibe [Zetia] 10 mg PO HS 02/27/21 [History] Furosemide [Lasix] 20 mg PO DAILY 02/27/21 [History] Glimepiride [Amaryl] 1 mg PO DAILY 02/27/21 [History] HYDROcodone/APAP 10-325MG [[place] 10-325] 1 tab PO Q6HR PRN 02/27/21 [History] Levothyroxine Sodium [Synthroid] 125 mcg PO DAILY 02/27/21 [History] Metoprolol Tartrate [Lopressor] 100 mg PO BID 02/27/21 [History] [place]-3 Acid Ethyl Esters [Lovaza] 1 gm PO BID 02/27/21 [History] Omeprazole [PriLOSEC] 20 mg PO DAILY PRN 02/27/21 [History] Potassium Chloride ER [K-Dur 10] 10 meq PO DAILY 02/27/21 [History] Pramipexole Di-HCl [Mirapex] 0.5 mg PO HS 02/27/21 [History] Pravastatin Sodium [Pravachol] 80 mg PO HS 02/27/21 [History] clonazePAM [KlonoPIN] 2 mg PO BID 02/27/21 [History] lisinopriL [Zestril] 5 mg PO HS 02/27/21 [History] sitaGLIPtin [Januvia] 100 mg PO DAILY 02/27/21 [History] Apixaban [Eliquis] 2.5 mg PO BID #60 tab 03/08/21 [Rx] Cyclobenzaprine [Flexeril] 10 mg PO HS #14 tab 03/08/21 [Rx] oxyCODONE HCL/ACETAMINOPHEN [oxyCODONE HCL/ACETAMINOPHEN 5-325] 1 tab PO Q8H #28 tab 03/08/21 [Rx] Follow up Appointment(s)/Referral(s): Mikie Bah, ADRIENNE [PHYSICIAN TREE DOCTOR] - 03/21/21 [facility], [NON-STAFF] - As Needed Patient Instructions/Handouts: Knee Replacement (GEN) Activity/Diet/Wound Care/Special Instructions: Orthopedic Discharge Instructions: 1. Wound care and infection precautions, keep incision dry and covered while showering, no lotions, creams, moisturizers. No soaking, pools, hot tubs. Do not scrub over incision. 2. Weight-bear as tolerated with walker / cane until follow-up. 3. Ice and elevate when necessary. Do not exceed 20 minutes per hour with ice pack. 4. Utilize compression sleeve until seen at first follow up appointment. 5. Pain meds and anticoagulants per prescription. 6. Pain medication has potential to cause constipation. Increase oral fluid and fiber intake. Contact primary care provider if you have not had a bowel movement within 48 hours after discharge. 7. No anti-inflammatory medication until discussed at first post operative visit, this including Motrin, Aleve, Mobic, Diclofenac. 8. Follow up in office at 2 weeks postop with Yves Wade PA-C / Mikie Bah PA-C 9. Follow up with your primary care doctor 7-10 days after discharge. 10. Contact [facility] with any questions, . Discharge Disposition: TRANSFER TO SNF/ECF
--- NOTE | 2021-03-08 09:27 | P.PN ---
Subjective Progress Note Date: 03/08/21 Principal diagnosis: Right knee osteoarthritis Patient was seen at bedside this morning. Patient is lying semirecumbent in bed icing her knee. Patient says she is feeling a little better today and rates her pain as 8 out of 10. She describes pain in her knee as burning sensation. Patient says ice does help with this somewhat. Patient says she has been trying to work physical therapy walking up and around the room. Patient said she is ready to go to rehab today. Patient says she has been using incentive spirometer throughout the day. Patient denies chest pain, fever, chest breath, nausea, vomiting, change in vision, loss of bowel/bladder control. Objective - Vital Signs Vital signs: Vital Signs Temp 97.9 F 03/08/21 07:58 Pulse 92 03/08/21 07:58 Resp 16 03/08/21 07:58 BP 110/76 03/08/21 07:58 Pulse Ox 96 03/08/21 07:58 Intake & Output 03/07/21 03/08/21 03/08/21 18:59 06:59 18:59 Intake Total 240 240 Balance 240 240 Intake: Oral 240 240 Other: Voiding Method Toilet Diaper # Voids 2 1 - Exam Right knee: Incision is clean, dry, and intact. The exofin fusion tape is in good condition. There is moderate soft tissue swelling and ecchymosis surrounding the medial and lateral aspects of the incision. Calf is soft, no tenderness with palpation. Plantar flexion, dorsiflexion, EHL, FHL are intact. Sensory exam to light touch throughout the extremity is intact, dorsal pedis pulses 2+. - Labs CBC & Chem 7: 03/08/21 05:25 03/08/21 05:25 Labs: Abnormal Lab Results - Last 24 Hours (Table) 03/06/21 03/07/21 03/07/21 Range/Units 06:43 11:48 16:36 RBC (3.80-5.40) m/uL Hgb (11.4-16.0) gm/dL Hct (34.0-46.0) % Sodium (137-145) mmol/L BUN (7-17) mg/dL Glucose (74-99) mg/dL POC Glucose (mg/dL) 194 H 202 H (75-99) mg/dL Hemoglobin A1c 7.5 H (4.0-6.0) % 03/07/21 03/08/21 03/08/21 Range/Units 20:40 05:25 05:25 RBC 3.08 L (3.80-5.40) m/uL Hgb 9.7 L (11.4-16.0) gm/dL Hct 30.1 L (34.0-46.0) % Sodium 133 L (137-145) mmol/L BUN 20 H (7-17) mg/dL Glucose 216 H (74-99) mg/dL POC Glucose (mg/dL) 212 H (75-99) mg/dL Hemoglobin A1c (4.0-6.0) % 03/08/21 Range/Units 06:51 RBC (3.80-5.40) m/uL Hgb (11.4-16.0) gm/dL Hct (34.0-46.0) % Sodium (137-145) mmol/L BUN (7-17) mg/dL Glucose (74-99) mg/dL POC Glucose (mg/dL) 236 H (75-99) mg/dL Hemoglobin A1c (4.0-6.0) % Assessment and Plan Assessment: Right knee osteoarthritis POD #3 s/p right total knee arthroplasty Plan: 1. Right knee osteoarthritis - right total knee arthroplasty performed 03/05/2021. Patient seen at bedside this morning. Patient in moderate amount of pain this morning. Continue to elevate and ice knee throughout day. Discharge to [facility] for rehab today 2. Appreciate medical management 3. Pain management - Continue Oxycodone 5mg/325mg q4h/prn. Flexeril 10 mg QHS for muscle spasms. Dilaudid 0.5 mg IVPB only when necessary 4. GI prophylaxis/DVT prophylaxis - senna. Lovenox. Going to rehab with Elqiuis 2.5 mg twice a day 15 days 5. Encourage incentive spirometer use 6. PT/OT - weightbearing as tolerated with walker for assistance. 7. Discharge planning - discharge to [facility] for rehab today. Time with Patient: Less than 30
[2021-03-08 11:34] LABS: Glucose,Whole Blood 200 mg/dL (75-99)
--- NOTE | 2021-03-08 13:24 | PN ---
PROGRESS NOTE DATE OF SERVICE: 03/08/2021 This 70-year-old woman was admitted after right total knee arthroplasty is improved significantly. ECF rehab is being planned. No chest pain. No palpitations. No fever. The chest x-ray is negative. PHYSICAL EXAMINATION: Alert and oriented x3. The pulse is 92, blood pressure 110/76, respirations 16, temperature 97.9, pulse ox 97% on room air. HEENT: Conjunctivae normal. Neck: No JVD. Cardiovascular: S1, S2 muffled. Respiratory: Breath sounds diminished at the bases. Abdomen: Soft, nontender. Legs status post surgery. Nervous System: No focal deficits. LABS: Accu-Cheks 236, 200, hemoglobin 9.7. ASSESSMENT: 1. Status post right total knee arthroplasty for severe degenerative joint disease. 2. Diabetes mellitus type 2. 3. Gastroesophageal reflux disease. 4. Hyperlipidemia. 5. History of pneumonia. 6. History of hypothyroidism. 7. History of degenerative joint disease. 8. History of anxiety, depression. 9. History of nicotine dependence. 10.Obesity with body mass of 36.5. 11.FULL CODE. RECOMMENDATIONS AND DISCUSSION: I recommend to continue current management and symptomatic treatment. Otherwise, I would recommend resume the home medications. Accu-Cheks before meals and bedtime. Insulin scale. Further recommendations to follow. MMODL / IJN: [id number] /
== END 2021-03-08 14:34 | DRG 470 ==
LOC: OR 08:38 → 4SSUR 13:09 → OR 03-06 15:03 → OBSVTOIN 03-07 12:17
PROVIDERS: ADMIT Orthopaedic Surgery; ATTEND Orthopaedic Surgery
PROC: 0SRC0J9 Replacement of Right Knee Joint with Synthetic Substitute, Cemented, Open Approach (ICD-10-PCS; principal; 2021-03-07)
PROC: 3E0T3BZ Introduction of Anesthetic Agent into Peripheral Nerves and Plexi, Percutaneous Approach (ICD-10-PCS; 2021-03-07)
DX: M17.11 Unilateral primary osteoarthritis, right knee (principal); E11.9 Type 2 diabetes mellitus without complications; K21.9 Gastro-esophageal reflux disease without esophagitis; E78.5 Hyperlipidemia, unspecified; Z87.01 Personal history of pneumonia (recurrent); E78.00 Pure hypercholesterolemia, unspecified; I10 Essential (primary) hypertension; E03.9 Hypothyroidism, unspecified; F17.210 Nicotine dependence, cigarettes, uncomplicated; F32.9 Major depressive disorder, single episode, unspecified; F41.9 Anxiety disorder, unspecified; E66.9 Obesity, unspecified; Z68.36 Body mass index [BMI] 36.0-36.9, adult; Z88.5 Allergy status to narcotic agent; Z88.8 Allergy status to other drugs, medicaments and biological substances; Z79.84 Long term (current) use of oral hypoglycemic drugs; Z79.899 Other long term (current) drug therapy
CPT/HCPCS: 64448; 64999; 71045; 76942; 80048; 83036; 85025; 88300

== ENCOUNTER 2021-05-01 02:59 | Inpatient (IN) | payer MEDICARE, OTHER ==
[2021-05-01] MEDS ORDERED: HYDROmorphone 0.5 MG/0.5 ML SYRINGE IVP STA (03:28)
--- NOTE | 2021-05-01 04:31 | XR ---
EXAMINATION TYPE: XR Hip RT and AP Pelvis DATE OF EXAM: 05/01/2021 COMPARISON: NONE HISTORY: Fall. Hip pain TECHNIQUE: 4 views FINDINGS: There is acute intertrochanteric fracture right femur with coxa vera deformity. There is im paction and comminution. There is no dislocation. The pelvic ring is intact. Sacroiliac joints are in tact. IMPRESSION: Acute intertrochanteric fracture right femur.
--- NOTE | 2021-05-01 04:32 | ED ---
Lower Extremity Injury HPI - General Chief Complaint: Extremity Injury, Lower Stated Complaint: Fall Time Seen by Provider: 05/01/21 03:12 Source: patient, EMS Mode of arrival: EMS - History of Present Illness Initial Comments: This patient is a 70-year-old woman brought by ambulance to have evaluation after she fell and injured her right hip. The patient states that she had been sleeping in her chair and then woke up needing to use the bathroom. She got up to use the bathroom, lost her balance and in or to try not landing on her right knee which was surgically replaced she landed on her right hip. She states that she felt sharp right hip pain and then was not able to support herself. The patient did receive dose of IV analgesics from EMS which somewhat helped the p ain though it does continue to be quite painful. Patient denies weakness or numbness down into the foot. MD Complaint: hip injury -: minutes(s) Injury: Hip: Right Type of Injury: blunt Place: home Severity: severe Improves With: immobilization, other (Medication) Worsens With: weight bearing, movement Context: fall - Related Data Home Medications Medication Instructions Recorded Confirmed Aspirin [Adult Low Dose Aspirin EC] 81 mg PO DAILY 02/27/21 02/27/21 Ergocalciferol [Vitamin D2 (1250 50,000 unit PO FR 02/27/21 02/27/21 Mcg = 94545 Iu)] Ezetimibe [Zetia] 10 mg PO HS 02/27/21 02/27/21 Furosemide [Lasix] 20 mg PO DAILY 02/27/21 02/27/21 Glimepiride [Amaryl] 1 mg PO DAILY 02/27/21 02/27/21 HYDROcodone/APAP 10-325MG [[place] 1 tab PO Q6HR PRN 02/27/21 02/27/21 10-325] Levothyroxine Sodium [Synthroid] 125 mcg PO DAILY 02/27/21 02/27/21 Metoprolol Tartrate [Lopressor] 100 mg PO BID 02/27/21 02/27/21 [place]-3 Acid Ethyl Esters [Lovaza] 1 gm PO BID 02/27/21 02/27/21 Omeprazole [PriLOSEC] 20 mg PO DAILY PRN 02/27/21 02/27/21 Potassium Chloride ER [K-Dur 10] 10 meq PO DAILY 02/27/21 02/27/21 Pramipexole Di-HCl [Mirapex] 0.5 mg PO HS 02/27/21 02/27/21 Pravastatin Sodium [Pravachol] 80 mg PO HS 02/27/21 02/27/21 lisinopriL [Zestril] 5 mg PO HS 02/27/21 02/27/21 sitaGLIPtin [Januvia] 100 mg PO DAILY 02/27/21 02/27/21 Previous Rx's Medication Instructions Recorded Acetaminophen Tab [Tylenol] 650 mg PO Q6HR PRN tab 03/08/21 Apixaban [Eliquis] 2.5 mg PO BID #60 tab 03/08/21 Cyclobenzaprine [Flexeril] 10 mg PO HS #14 tab 03/08/21 INSULIN ASPART (NovoLOG) [NovoLOG 0 unit SQ ACHS ml 03/08/21 (formulary)] Sennosides-Docusate Sodium 2 each PO HS tab 03/08/21 [Senokot-S] clonazePAM [KlonoPIN] 2 mg PO BID #6 tab 03/08/21 oxyCODONE HCL/ACETAMINOPHEN 1 tab PO Q8H #28 tab 03/08/21 [oxyCODONE HCL/ACETAMINOPHEN 5-325] Allergies Allergy/AdvReac Type Severity Reaction Status Date / Time ezetimibe [From Vytorin] Allergy weakness Verified 03/05/21 09:17 gabapentin [From Neurontin] Allergy weakness, Verified 03/05/21 09:17 leg pain pregabalin [From Lyrica] Allergy leg pain Verified 03/05/21 09:17 rosuvastatin [From Crestor] Allergy leg pain Verified 03/05/21 09:17 simvastatin [From Vytorin] Allergy weakness Verified 03/05/21 09:17 morphine AdvReac Itching Verified 03/05/21 09:17 Review of Systems ROS Statement: Those systems with pertinent positive or pertinent negative responses have been documented in the HPI. ROS Other: All systems not noted in ROS Statement are negative. Constitutional: Denies: fever, weakness Respiratory: Denies: cough, dyspnea Cardiovascular: Denies: chest pain, palpitations, edema Gastrointestinal: Denies: abdominal pain, vomiting, diarrhea Genitourinary: Denies: dysuria, hematuria Musculoskeletal: Reports: as per HPI, arthralgia. Denies: back pain Skin: Denies: rash Neurological: Denies: headache, weakness, numbness, paresthesias Hematological/Lymphatic: Denies: easy bleeding Past Medical History Past Medical History: Diabetes Mellitus, GERD/Reflux, Hyperlipidemia, Hypertension, Osteoarthritis (OA), Pneumonia, Thyroid Disorder Additional Past Medical History / Comment(s): hx migraines, varicose veins, neuropathy, "chicken shots in [place] knees", knees give out, hx thyroid nodues, History of Any Multi-Drug Resistant Organisms: None Reported Past Surgical History: Orthopedic Surgery Additional Past Surgical History / Comment(s): left knee arthroscopy, thyroidectomy, polyps removed from vocal cords, Past Anesthesia/Blood Transfusion Reactions: No Reported Reaction Past Psychological History: Anxiety, Depression Smoking Status: Former smoker Past Alcohol Use History: None Reported Past Drug Use History: None Reported - Past Family History Father Family Medical History: Cancer Additional Family Medical History / Comment(s): lung General Exam General appearance: alert, in no apparent distress Head exam: Present: atraumatic, normocephalic Eye exam: Present: normal appearance. Absent: scleral icterus, conjunctival injection Neck exam: Present: normal inspection, full ROM. Absent: tenderness Respiratory exam: Present: normal lung sounds bilaterally. Absent: respiratory distress, wheezes, rales, rhonchi, stridor Cardiovascular Exam: Present: regular rate, normal rhythm, normal heart sounds. Absent: systolic murmur, diastolic murmur, rubs, gallop GI/Abdominal exam: Present: soft. Absent: distended, tenderness, guarding, rebound, rigid, mass Extremities exam: Present: normal inspection, normal capillary refill. Absent: pedal edema, calf tenderness Right Hip exam: Present: tenderness, deformity, crepitus, external rotation, shorte jean. Absent: full ROM, laceration, ecchymosis Upper Leg exam: Present: normal inspection Knee exam: Present: normal inspection, full ROM. Absent: tenderness, swelling, deformity, dislocation Lower Leg exam: Absent: ecchymosis, deformity Ankle exam: Present: normal inspection, full ROM. Absent: tenderness, swelling, ecchymosis, deformity Foot/Toe exam: Present: normal inspection, full ROM. Absent: tenderness, swelling, ecchymosis, deformity Neurovascular tendon exam: Present: no vascular compromise. Absent: pulse deficit, abnormal cap refill, motor deficit, sensory deficit, tendon deficit, abnormal 2-point discrimination, decreased fine/light touch Back exam: Present: normal inspection. Absent: CVA tenderness (R), CVA tenderness (L) Neurological exam: Present: alert Skin exam: Present: warm, dry, intact, normal color. Absent: rash Course Vital Signs 05/01/21 05/01/21 05/01/21 03:06 05:00 06:09 Temperature 98.5 F Pulse Rate 81 93 93 Respiratory 20 20 20 Rate Blood Pressure 145/70 142/77 142/81 O2 Sat by Pulse 98 99 99 Oximetry Medical Decision Making - Medical Decision Making Case discussed with orthopedics who will admit patient for possible surgical repair today. - Lab Data Result diagrams: 05/01/21 04:15 05/01/21 04:15 Lab Results 05/01/21 05/01/21 05/01/21 Range/Units 04:15 04:15 04:15 WBC 12.6 H (3.8-10.6) k/uL RBC 3.80 (3.80-5.40) m/uL Hgb 11.9 (11.4-16.0) gm/dL Hct 36.5 (34.0-46.0) % MCV 95.9 (80.0-100.0) fL MCH 31.2 (25.0-35.0) pg MCHC 32.5 (31.0-37.0) g/dL RDW 13.2 (11.5-15.5) % Plt Count 240 (150-450) k/uL MPV 7.3 Neutrophils % 87 % Lymphocytes % 7 % Monocytes % 4 % Eosinophils % 1 % Basophils % 0 % Neutrophils # 11.0 H (1.3-7.7) k/uL Lymphocytes # 0.9 L (1.0-4.8) k/uL Monocytes # 0.5 (0-1.0) k/uL Eosinophils # 0.1 (0-0.7) k/uL Basophils # 0.0 (0-0.2) k/uL PT (9.0-12.0) sec INR (<1.2) APTT (22.0-30.0) sec Sodium 134 L (137-145) mmol/L Potassium 4.7 (3.5-5.1) mmol/L Chloride 105 (98-107) mmol/L Carbon Dioxide 22 (22-30) mmol/L Anion Gap 7 mmol/L BUN 35 H (7-17) mg/dL Creatinine 0.82 (0.52-1.04) mg/dL Est GFR (CKD-EPI)AfAm 83 (>60 ml/min/1.73 sqM) Est GFR (CKD-EPI)NonAf 72 (>60 ml/min/1.73 sqM) Glucose 198 H (74-99) mg/dL Calcium 9.3 (8.4-10.2) mg/dL Urine Color Yellow Urine Appearance Clear (Clear) Urine pH 5.0 (5.0-8.0) Ur Specific [place] 1.030 (1.001-1.035) Urine Protein Trace H (Negative) Urine Glucose (UA) 2+ H (Negative) Urine Ketones Trace H (Negative) Urine Blood Negative (Negative) Urine Nitrite Positive H (Negative) Urine Bilirubin Negative (Negative) Urine Urobilinogen <2.0 (<2.0) mg/dL Ur Leukocyte Esterase Moderate H (Negative) Urine RBC 2 (0-5) /hpf Urine WBC 6 H (0-5) /hpf Ur Squamous Epith Cells 1 (0-4) /hpf Urine Bacteria Occasional H (None) /hpf Hyaline Casts 22 H (0-2) /lpf Urine Mucus Rare H (None) /hpf 05/01/21 Range/Units 04:15 WBC (3.8-10.6) k/uL RBC (3.80-5.40) m/uL Hgb (11.4-16.0) gm/dL Hct (34.0-46.0) % MCV (80.0-100.0) fL MCH (25.0-35.0) pg MCHC (31.0-37.0) g/dL RDW (11.5-15.5) % Plt Count (150-450) k/uL MPV Neutrophils % % Lymphocytes % % Monocytes % % Eosinophils % % Basophils % % Neutrophils # (1.3-7.7) k/uL Lymphocytes # (1.0-4.8) k/uL Monocytes # (0-1.0) k/uL Eosinophils # (0-0.7) k/uL Basophils # (0-0.2) k/uL PT 10.5 (9.0-12.0) sec INR 1.0 (<1.2) APTT 21.9 L (22.0-30.0) sec Sodium (137-145) mmol/L Potassium (3.5-5.1) mmol/L Chloride (98-107) mmol/L Carbon Dioxide (22-30) mmol/L Anion Gap mmol/L BUN (7-17) mg/dL Creatinine (0.52-1.04) mg/dL Est GFR (CKD-EPI)AfAm (>60 ml/min/1.73 sqM) Est GFR (CKD-EPI)NonAf (>60 ml/min/1.73 sqM) Glucose (74-99) mg/dL Calcium (8.4-10.2) mg/dL Urine Color Urine Appearance (Clear) Urine pH (5.0-8.0) Ur Specific [place] (1.001-1.035) Urine Protein (Negative) Urine Glucose (UA) (Negative) Urine Ketones (Negative) Urine Blood (Negative) Urine Nitrite (Negative) Urine Bilirubin (Negative) Urine Urobilinogen (<2.0) mg/dL Ur Leukocyte Esterase (Negative) Urine RBC (0-5) /hpf Urine WBC (0-5) /hpf Ur Squamous Epith Cells (0-4) /hpf Urine Bacteria (None) /hpf Hyaline Casts (0-2) /lpf Urine Mucus (None) /hpf - EKG Data -: EKG Interpreted by Tn EKG shows normal: sinus rhythm (Rate 85 bpm), axis (Normal), intervals (Normal), QRS complexes (Normal), ST-T waves (Normal) Rate: normal Disposition Clinical Impression: Fracture of right hip Disposition: ADMITTED IP TO THIS [facility] Condition: Fair
--- NOTE | 2021-05-01 04:32 | XR ---
EXAMINATION TYPE: XR chest 1V DATE OF EXAM: 05/01/2021 COMPARISON: March 07, 2021 HISTORY: Short of breath TECHNIQUE: Single view FINDINGS: There is no heart failure nor confluent pneumonic infiltrate. Costophrenic angles are clear . There are no hilar masses. Bony thorax is intact. IMPRESSION: No active cardiopulmonary disease. No change.
[2021-05-01 04:36] LABS: Basophils % (A) 0 %; Eosinophils # (A) 0.1 k/uL (0-0.7); Eosinophils % (A) 1 %; HCT 36.5 % (34.0-46.0); HGB 11.9 gm/dL (11.4-16.0); Lymphocytes # (A) 0.9 k/uL (1.0-4.8); Lymphocytes % (A) 7 %; MCH 31.2 pg (25.0-35.0); MCHC 32.5 g/dL (31.0-37.0); MCV 95.9 fL (80.0-100.0); Mean Platelet Volume 7.3; Monocytes # (A) 0.5 k/uL (0-1.0); Monocytes % (A) 4 %; Neutrophils % (A) 87 %; Platelet Count 240 k/uL (150-450); RDW 13.2 % (11.5-15.5); WBC 12.6 k/uL (3.8-10.6)
[2021-05-01 04:41] LABS: Prothrombin Time 10.5 sec (9.0-12.0)
[2021-05-01 04:53] LABS: Partial Thromboplastin Time 21.9 sec (22.0-30.0)
[2021-05-01] MEDS ORDERED: NALOXONE 0.4 MG/ML 1 ML VIAL IV PRN ×2 (05:04→19:24)
[2021-05-01] MEDS ORDERED: ONDANSETRON 4 MG/2 ML VIAL IVP PRN (05:04)
[2021-05-01] MEDS ORDERED: MAG HYDROX/AL HYDROX/SIMETH 30 ML CUP PO PRN (05:04)
[2021-05-01 05:05] LABS: Calcium 9.3 mg/dL (8.4-10.2); Potassium 4.7 mmol/L (3.5-5.1)
[2021-05-01] MEDS: SODIUM CHLORIDE 0.9% 1,000 ML IV SCH ×3 (05:38→23:02)
[2021-05-01 05:52] LABS: Appearance,Urine Clear (Clear); Bacteria,Urine Occasional /hpf; Bilirubin,Urine Negative (Negative); Blood,Urine Negative (Negative); Color,Urine Yellow; Glucose,Urine (UA) 2+ (Negative); Hyaline Casts,Urine 22 /lpf (0-2); Ketones,Urine Trace (Negative); Leukocyte Esterase,Urine Moderate (Negative); Mucus,Urine Rare /hpf; Nitrite,Urine Positive (Negative); Protein,Urine Trace (Negative); RBC,Urine 2 /hpf (0-5); Squamous Epithelial Cell,Urine 1 /hpf (0-4); Urobilinogen,Urine <2.0 mg/dL (<2.0); WBC,Urine 6 /hpf (0-5)
[2021-05-01] MEDS: HYDROmorphone 0.5 MG/0.5 ML SYRINGE IVP PRN ×4 (06:01→14:55)
--- NOTE | 2021-05-01 08:06 | P.HPOR ---
History of Present Illness H&P Date: 05/01/21 Chief Complaint: right hip pain Patient was seen at bedside this morning in the emergency room. Patient presented to the ER last night with right hip pain status post fall. Patient says she was at home and fell asleep in her lift chair. Patient woke up, she said she did not realize she was in her chair and caught her leg on an end table falling out of the chair. Patient says she was about to land on her newly replaced knee and decided to land on her side instead, landing on her right hip. Patient says she and her called EMS she says it is difficult to get the ambulance. Patient says most for pain is located diffusely around the right hip. Patient rates pain as 10/10. She says there is some radiation of pain down side of the right leg. Patient denies any right knee pain. Patient says IV pain medication has helped control some of the pain. Patient says multiple times she attempted to straighten her leg, but was unable to due to pain. Patient did have recent right total knee arthroplasty on 03/05/[address] Cheng. Patient says her recovery has been going well with her right total knee and she has no complaints of her knee at this time. Patient denies chest pain, fever, shortness of breath, nausea, vomiting, change in vision, loss of b owel/bladder control. Past Medical History Past Medical History: Diabetes Mellitus, GERD/Reflux, Hyperlipidemia, Hypertension, Osteoarthritis (OA), Pneumonia, Thyroid Disorder Additional Past Medical History / Comment(s): hx migraines, varicose veins, neuropathy, "chicken shots in [place] knees", knees give out, hx thyroid nodues, History of Any Multi-Drug Resistant Organisms: None Reported Past Surgical History: Orthopedic Surgery Additional Past Surgical History / Comment(s): left knee arthroscopy, thyroidectomy, polyps removed from vocal cords, Past Anesthesia/Blood Transfusion Reactions: No Reported Reaction Past Psychological History: Anxiety, Depression Smoking Status: Former smoker Past Alcohol Use History: None Reported Past Drug Use History: None Reported - Past Family History Father Family Medical History: Cancer Additional Family Medical History / Comment(s): lung Medications and Allergies Home Medications Medication Instructions Recorded Confirmed Type Ergocalciferol [Vitamin D2 (1250 1,250 unit PO Q14D 02/27/21 05/01/21 History Mcg = 92234 Iu)] Ezetimibe [Zetia] 10 mg PO HS 02/27/21 05/01/21 History Furosemide [Lasix] 40 mg PO DAILY 02/27/21 05/01/21 History Glimepiride [Amaryl] 1 mg PO DAILY 02/27/21 05/01/21 History HYDROcodone/APAP 10-325MG [[place] 1 tab PO Q6HR PRN 02/27/21 05/01/21 History 10-325] Levothyroxine Sodium [Synthroid] 125 mcg PO DAILY 02/27/21 05/01/21 History Metoprolol Tartrate [Lopressor] 100 mg PO BID 02/27/21 05/01/21 History Omeprazole [PriLOSEC] 20 mg PO DAILY PRN 02/27/21 05/01/21 History Potassium Chloride ER [K-Dur 10] 10 meq PO DAILY 02/27/21 05/01/21 History Pramipexole Di-HCl [Mirapex] 0.5 mg PO HS 02/27/21 05/01/21 History Pravastatin Sodium [Pravachol] 80 mg PO HS 02/27/21 05/01/21 History lisinopriL [Zestril] 5 mg PO HS 02/27/21 05/01/21 History sitaGLIPtin [Januvia] 100 mg PO DAILY 02/27/21 05/01/21 History clonazePAM [KlonoPIN] 2 mg PO BID #6 tab 03/08/21 05/01/21 Rx Cyclobenzaprine [Flexeril] 10 mg PO PC-LUNCH 05/01/21 05/01/21 History Eszopiclone [Lunesta] 2 mg PO HS PRN 05/01/21 05/01/21 History Allergies Allergy/AdvReac Type Severity Reaction Status Date / Time ezetimibe [From Vytorin] AdvReac weakness Verified 05/01/21 07:15 gabapentin [From Neurontin] AdvReac weakness, Verified 05/01/21 07:15 leg pain morphine AdvReac Itching Verified 05/01/21 07:15 pregabalin [From Lyrica] AdvReac leg pain Verified 05/01/21 07:15 rosuvastatin [From Crestor] AdvReac leg pain Verified 05/01/21 07:15 simvastatin [From Vytorin] AdvReac weakness Verified 05/01/21 07:15 Physical Examination Inspection: Right leg shortened and externally rotated. Negative for any evidence of open fracture, erythema, ecchymosis. Palpation: Moderate tenderness to palpation diffusely over right hip. Nontender to palpation throughout right knee Sensation: Sensation is equal, symmetric, intact bilaterally Range of motion: Range of motion is limited in right leg in hip flexion/extension and external and internal rotation due to pain. Full range of motion left leg in hip flexion/extension and knee flexion/extension. Full range of motion in plantar and dorsiflexion bilaterally. Log roll maneuver reproduces pain Motor: Motor exam limited in right leg due to severe pain. 5/5 in resisted flexion/extension of left hip and left knee. 5/5 in his plantar/dorsiflexion bilaterally Neurovascular status: Cap Refill under 3 seconds bilaterally in LE; DP pulses present, 2+ intact. Results - Labs Labs: Abnormal Lab Results - Last 24 Hours (Table) 05/01/21 05/01/21 05/01/21 Range/Units 04:15 04:15 04:15 WBC 12.6 H (3.8-10.6) k/uL Neutrophils # 11.0 H (1.3-7.7) k/uL Lymphocytes # 0.9 L (1.0-4.8) k/uL APTT (22.0-30.0) sec Sodium 134 L (137-145) mmol/L BUN 35 H (7-17) mg/dL Glucose 198 H (74-99) mg/dL Urine Protein Trace H (Negative) Urine Glucose (UA) 2+ H (Negative) Urine Ketones Trace H (Negative) Urine Nitrite Positive H (Negative) Ur Leukocyte Esterase Moderate H (Negative) Urine WBC 6 H (0-5) /hpf Urine Bacteria Occasional H (None) /hpf Hyaline Casts 22 H (0-2) /lpf Urine Mucus Rare H (None) /hpf 05/01/21 Range/Units 04:15 WBC (3.8-10.6) k/uL Neutrophils # (1.3-7.7) k/uL Lymphocytes # (1.0-4.8) k/uL APTT 21.9 L (22.0-30.0) sec Sodium (137-145) mmol/L BUN (7-17) mg/dL Glucose (74-99) mg/dL Urine Protein (Negative) Urine Glucose (UA) (Negative) Urine Ketones (Negative) Urine Nitrite (Negative) Ur Leukocyte Esterase (Negative) Urine WBC (0-5) /hpf Urine Bacteria (None) /hpf Hyaline Casts (0-2) /lpf Urine Mucus (None) /hpf H & H 05/01/21 Range/Units 04:15 Hgb 11.9 (11.4-16.0) gm/dL Hct 36.5 (34.0-46.0) % Coagulation 05/01/21 Range/Units 04:15 INR 1.0 (<1.2) Result Diagrams: 05/01/21 04:15 05/01/21 04:15 Assessment and Plan Assessment: 1. Right hip intertrochanteric fracture 2. History of recent right total knee arthroplasty Plan: 1. Right hip intertrochanteric fracture; history of recent right total knee arthroplasty - surgery booked for this afternoon 05/01/2021 - right hip IM nail. Patient to remain nothing by mouth at this time. Right femur x-ray ordered for further evaluation. Right knee x-ray also ordered 2. Appreciate medical management - patient needs medical clearance for surgery. CBC and BMP have been completed 3. Pain management - IV and oral pain medications 4. GI prophylaxis - Maalox and Pepcid 5. DVT ppx - hold thinners at this time 6. PT/OT - NWB right leg Time with Patient: Less than 30
[2021-05-01] MEDS: FAMOTIDINE 20 MG TAB PO SCH ×2 (08:47→22:28)
[2021-05-01] MEDS ORDERED: PANTOPRAZOLE 40 MG TABLET PO PRN (09:39)
[2021-05-01] MEDS ORDERED: TEMAZEPAM 15 MG CAP PO PRN (09:39)
[2021-05-01] MEDS ORDERED: clonazePAM 1 MG TAB PO PRN (09:39)
[2021-05-01] MEDS ORDERED: ERGOCALCIFEROL 1,250 MCG (50,000 IU) CAPSULE PO SCH (09:45)
[2021-05-01] MEDS: METOPROLOL TARTRATE 50 MG TAB PO SCH ×2 (10:54→22:26)
--- NOTE | 2021-05-01 11:08 | P.CONS ---
History of Present Illness - Reason for Consult Preoperative clearance, hyponatremia - History of Present Illness Patient is a pleasant 70-year-old came in after a mechanical fall and found to have right hip fracture. Medicine was consulted preoperative clearance patient is good functional status and denied any history of coronary artery disease EKG showed sinus rhythm. Patient had a recent total right knee arthroplasty did well with the surgery. Patient is on Klonopin she states it's for her restless leg syndrome and also anxiety patient doesn't like to take SSRIs. Patient is on scheduled Klonopin which will change that as-needed basis and the patient will benefit from SSRIs like the citalopram and we will increase the dose of Mirapex for restless leg. REVIEW OF SYSTEMS: CONSTITUTIONAL: No fever, no malaise, no fatigue. HEENT: No recent visual problems or hearing problems. Denied any sore throat. CARDIOVASCULAR: No chest pain, orthopnea, PND, no palpitations, no syncope. PULMONARY: No shortness of breath, no cough, no hemoptysis. GASTROINTESTINAL: No diarrhea, no nausea, no vomiting, no abdominal pain. NEUROLOGICAL: No headaches, no weakness, no numbness. HEMATOLOGICAL: Denies any bleeding or petechiae. GENITOURINARY: Denies any burning micturition, frequency, or urgency. MUSCULOSKELETAL/RHEUMATOLOGICAL: Severe pain in the right ENDOCRINE: Denies any polyuria or polydipsia. The rest of the 14-point review of systems is negative. PHYSICAL EXAMINATION: GENERAL: The patient is alert and oriented x3, not in any acute distress. Well developed, well nourished. HEENT: Pupils are round and equally reacting to light. EOMI. No scleral icterus. No conjunctival pallor. Normocephalic, atraumatic. No pharyngeal erythema. No thyromegaly. CARDIOVASCULAR: S1 and S2 present. No murmurs, rubs, or gallops. PULMONARY: Chest is clear to auscultation, no wheezing or crackles. ABDOMEN: Soft, nontender, nondistended, normoactive bowel sounds. No palpable organomegaly. MUSCULOSKELETAL: Deferred to Dr. bunch surgery EXTREMITIES: No cyanosis, clubbing, or pedal edema. NEUROLOGICAL: Gross neurological examination did not reveal any focal deficits. SKIN: No rashes. Assessment and plan Preoperative clearance: Patient is a low risk for surgery. -Hyponatremia, hypovolemic secondary to Lasix which will be held the patient that is metastatic as well patient was started on IV fluids -Leukocytosis reactive without any evidence of infection at this time -Restless leg syndrome patient is on Mirapex dose of which will be increased if needed. -Anxiety disorder Klonopin will be made as needed and patient will be started on citalopram -Hypothyroidism -Gases visual reflux disease -Hyperlipidemia -Type 2 diabetes mellitus. We'll have a glycemic agents will be held and patient will be on sliding scale insulin at this time DVT prophylaxis: As per primary service Past Medical History Past Medical History: Diabetes Mellitus, GERD/Reflux, Hyperlipidemia, Hypertension, Osteoarthritis (OA), Pneumonia, Thyroid Disorder Additional Past Medical History / Comment(s): hx migraines, varicose veins, neuropathy, "chicken shots in [place] knees", knees give out, hx thyroid nodues, History of Any Multi-Drug Resistant Organisms: None Reported Past Surgical History: Orthopedic Surgery Additional Past Surgical History / Comment(s): left knee arthroscopy, thyroidectomy, polyps removed from vocal cords, Past Anesthesia/Blood Transfusion Reactions: No Reported Reaction Past Psychological History: Anxiety, Depression Smoking Status: Former smoker Past Alcohol Use History: None Reported Past Drug Use History: None Reported - Past Family History Father Family Medical History: Cancer Additional Family Medical History / Comment(s): lung Medications and Allergies Home Medications Medication Instructions Recorded Confirmed Type Ergocalciferol [Vitamin D2 (1250 1,250 unit PO Q14D 02/27/21 05/01/21 History Mcg = 57370 Iu)] Ezetimibe [Zetia] 10 mg PO HS 02/27/21 05/01/21 History Furosemide [Lasix] 40 mg PO DAILY 02/27/21 05/01/21 History Glimepiride [Amaryl] 1 mg PO DAILY 02/27/21 05/01/21 History HYDROcodone/APAP 10-325MG [[place] 1 tab PO Q6HR PRN 02/27/21 05/01/21 History 10-325] Levothyroxine Sodium [Synthroid] 125 mcg PO DAILY 02/27/21 05/01/21 History Metoprolol Tartrate [Lopressor] 100 mg PO BID 02/27/21 05/01/21 History Omeprazole [PriLOSEC] 20 mg PO DAILY PRN 02/27/21 05/01/21 History Potassium Chloride ER [K-Dur 10] 10 meq PO DAILY 02/27/21 05/01/21 History Pramipexole Di-HCl [Mirapex] 0.5 mg PO HS 02/27/21 05/01/21 History Pravastatin Sodium [Pravachol] 80 mg PO HS 02/27/21 05/01/21 History lisinopriL [Zestril] 5 mg PO HS 02/27/21 05/01/21 History sitaGLIPtin [Januvia] 100 mg PO DAILY 02/27/21 05/01/21 History clonazePAM [KlonoPIN] 2 mg PO BID #6 tab 03/08/21 05/01/21 Rx Cyclobenzaprine [Flexeril] 10 mg PO PC-LUNCH 05/01/21 05/01/21 History Eszopiclone [Lunesta] 2 mg PO HS PRN 05/01/21 05/01/21 History Allergies Allergy/AdvReac Type Severity Reaction Status Date / Time ezetimibe [From Vytorin] AdvReac weakness Verified 05/01/21 07:15 gabapentin [From Neurontin] AdvReac weakness, Verified 05/01/21 07:15 leg pain morphine AdvReac Itching Verified 05/01/21 07:15 pregabalin [From Lyrica] AdvReac leg pain Verified 05/01/21 07:15 rosuvastatin [From Crestor] AdvReac leg pain Verified 05/01/21 07:15 simvastatin [From Vytorin] AdvReac weakness Verified 05/01/21 07:15 Physical Exam Vitals: Vital Signs Temp Pulse Resp BP Pulse Ox 05/01/21 08:21 101 H 20 136/85 97 05/01/21 08:00 20 05/01/21 06:09 93 20 142/81 99 05/01/21 05:00 93 20 142/77 99 05/01/21 03:06 98.5 F 81 20 145/70 98 Intake and Output 04/30/21 05/01/21 05/01/21 22:59 06:59 14:59 Output Total 300 Balance -300 Output: Urine 300 Uretheral (Robert) 300 Other: Voiding Method Indwelling Catheter Weight 89.358 kg Results CBC & Chem 7: 05/01/21 04:15 05/01/21 04:15 Labs: Abnormal Lab Results - Last 24 Hours (Table) 05/01/21 05/01/21 05/01/21 Range/Units 04:15 04:15 04:15 WBC 12.6 H (3.8-10.6) k/uL Neutrophils # 11.0 H (1.3-7.7) k/uL Lymphocytes # 0.9 L (1.0-4.8) k/uL APTT (22.0-30.0) sec Sodium 134 L (137-145) mmol/L BUN 35 H (7-17) mg/dL Glucose 198 H (74-99) mg/dL Urine Protein Trace H (Negative) Urine Glucose (UA) 2+ H (Negative) Urine Ketones Trace H (Negative) Urine Nitrite Positive H (Negative) Ur Leukocyte Esterase Moderate H (Negative) Urine WBC 6 H (0-5) /hpf Urine Bacteria Occasional H (None) /hpf Hyaline Casts 22 H (0-2) /lpf Urine Mucus Rare H (None) /hpf 05/01/21 Range/Units 04:15 WBC (3.8-10.6) k/uL Neutrophils # (1.3-7.7) k/uL Lymphocytes # (1.0-4.8) k/uL APTT 21.9 L (22.0-30.0) sec Sodium (137-145) mmol/L BUN (7-17) mg/dL Glucose (74-99) mg/dL Urine Protein (Negative) Urine Glucose (UA) (Negative) Urine Ketones (Negative) Urine Nitrite (Negative) Ur Leukocyte Esterase (Negative) Urine WBC (0-5) /hpf Urine Bacteria (None) /hpf Hyaline Casts (0-2) /lpf Urine Mucus (None) /hpf
[2021-05-01] MEDS: CITALOPRAM HYDROBROMIDE 10 MG TAB PO SCH (12:23)
[2021-05-01] MEDS: INSULIN ASPART (NovoLOG) 100 UNIT/ML VIAL SQ SCH ×3 (12:23→22:28)
--- NOTE | 2021-05-01 15:59 | XR ---
EXAMINATION TYPE: XR femur RT DATE OF EXAM: 05/01/2021 COMPARISON: None HISTORY: Fall, pain TECHNIQUE: Right femur is examined in 2 projections. FINDINGS: There is a intertrochanteric fracture with angulation of the femoral neck in relation to th e femoral shaft. There is avulsion of lesser trochanter. IMPRESSION: 1. Intertrochanteric fracture right hip 2. Avulsion of the lesser trochanter.
--- NOTE | 2021-05-01 16:01 | XR ---
EXAMINATION TYPE: XR knee limited RT DATE OF EXAM: 05/01/2021 COMPARISON: None HISTORY: Fall, pain TECHNIQUE: 2 view right knee FINDINGS: Right knee prosthesis is present. Small joint effusion is not excluded. No acute fracture o r dislocation within the [id number] is evident. Follow up exams can be performed 7-10 days from ac christelle trauma for continued pain. Please also see right femur dictation same date IMPRESSION: 1. Right knee appears normal with prosthesis as visualized.
[2021-05-01] MEDS ORDERED: SODIUM CHLORIDE 0.9% 600 ML IV ONE (16:28)
[2021-05-01] MEDS ORDERED: ONDANSETRON 4 MG/2 ML VIAL IVP ONE (16:44)
[2021-05-01] MEDS ORDERED: DEXAMETHASONE SOD PHOSPHATE 4 MG/ML 1 ML VIAL IVP ONE ×2 (16:44→16:51)
[2021-05-01 16:54] LABS: Glucose,Whole Blood 151 mg/dL (75-99)
[2021-05-01] MEDS ORDERED: HYDROmorphone (PF) 1 MG/ML ONE (17:25)
[2021-05-01] MEDS ORDERED: MIDAZOLAM 2 MG/2 ML VIAL ONE (17:25)
[2021-05-01] MEDS ORDERED: SUCCINYLCHOLINE CHLORIDE 100 MG/5 ML SYR IV ONE (17:25)
[2021-05-01] MEDS ORDERED: PROPOFOL 10 MG/ML 20 ML VIAL IV ONE (17:25)
[2021-05-01] MEDS ORDERED: fentaNYL (PF) 50 MCG/ML 2 ML AMP ONE (17:25)
[2021-05-01] MEDS ORDERED: LIDOCAINE 1% INJ 10MG/ML (20 ML MDV) ONE (17:25)
[2021-05-01] MEDS ORDERED: LABETALOL 5 MG/ML VIAL MDV ONE (17:25)
[2021-05-01] MEDS ORDERED: SODIUM CHLORIDE 0.9% 100 ML with ceFAZolin 2,000 MG IV ONE ×2 (17:52)
[2021-05-01] MEDS ORDERED: LACTATED RINGERS 1,000 ML IV ONE (18:30)
[2021-05-01] MEDS ORDERED: ceFAZolin 1,000 MG in SODIUM CHLORIDE 0.9% 1,000 ML IRRIGATION ONE (19:00)
[2021-05-01] MEDS ORDERED: HYDROcodone/APAP 5-325MG 1 EACH TAB PO PRN (19:24)
--- NOTE | 2021-05-01 19:34 | P.OP ---
Date of Procedure: 05/01/21 Preoperative Diagnosis: Displaced four-part right intertrochanteric femur fracture Postoperative Diagnosis: Same Procedure(s) Performed: Trochanteric intramedullary nailing right intertrochanteric femur fracture Implants: [place] 12.5 mm short 125 gamma nail, 100 mm compression screw Anesthesia: HAYLEE Surgeon: Delvin Cheng Substation Inspector #1: Mikie Bah Estimated Blood Loss (ml): 200 Pathology: none sent Condition: stable Disposition: PACU Indications for Procedure: The patient's a 70-year-old female presents after falling injuring her right hip. Upon evaluation she was noted have a significantly displaced right intertrochanteric femur fracture. A discussion of the risks and benefits of operative intervention was made with patient. She opted to proceed. Operative risks to include infection, neurovascular injury, development of blood clots, development of nonunion, development of malunion, hardware failure, and possible need for subsequent procedures was discussed. Informed consent was obtained. Operative Findings: As below Description of Procedure: The patient was brought to the operating room, and after induction of general anesthesia was placed supine on the fracture table. Bony prominences were appropriately padded. The fracture was attempted to be reduced with longitudinal traction and internal rotation of the right lower extremity. This was verified with fluoroscopy. I still had significant residual displacement of the neck component. The right lower extremity was prepped and draped in a sterile normal fashion. An 8 cm incision was then made just proximal the greater trochanter. The skin and subcutaneous tissues were divided sharply. Electrocautery was used for hemostasis. The gluteus salena fascia was split in line with the skin incision. Blunt dissection was made down to level the greater trochanter. 2 accessory stab wounds were made along the anterolateral hip in an attempt to better reduce the fracture utilizing a spike ball-tipped reduction tool. The starting awl was inserted in the greater trochanter at its tip. This is verified with fluoroscopy. A ball-tipped guidewire was gently inserted down the canal. The canal was reamed distally to 12.5 mm. Proximal was reamed to 15.5 mm. A 125 short gamma nail was then gently inserted over the guidewire. The guidewire was removed. A threaded guidepin was then placed into the centercentral portion of the femoral head and neck on the AP and lateral views to within 5 mm the articular surface. A triple reamer was used to a depth of 100 mm. A 100 mm compression screw was then inserted with good purchase. A setscrew was placed allowing continued sliding, however limiting rotation. A distal static locking screws placed utilizing the appropriate guide. Good purchase was obtained. Final fluoroscopic view showed adequate reduction of this complex fracture pattern and placement of the implant on both the AP and lateral views. The wounds were irrigated normal saline. The fascia was closed with running 0 Vicryl suture. The deep subcutaneous tissues reapproximated interrupted 0 Vicryl sutures. The superficial subcutaneous tissues were reapproximated interrupted 2-0 Vicryl sutures. The skin was reapproximated with christa. A sterile dressing was applied. The patient was awoken from general anesthesia and transferred to recovery room in [facility]. Blood loss was estimated at 200 mL. No complications were incurred. Sponge and needle counts were correct at the end of the case. Mikie BATISTA assisted during the major components the case to include positioning, exposure, reduction, and closure.
[2021-05-01 19:53] LABS: Glucose,Whole Blood 259 mg/dL (75-99)
[2021-05-01] MEDS ORDERED: INSULIN ASPART (NovoLOG) 100 UNIT/ML VIAL SQ ONE (19:53)
--- NOTE | 2021-05-01 20:18 | XR ---
EXAMINATION TYPE: XR Hip Limited RT DATE OF EXAM: 05/01/2021 COMPARISON: Today HISTORY: Postop TECHNIQUE: 3 views FINDINGS: Fluoroscopic images show placement of intramedullary anusha and transverse screw fixing the in tertrochanteric fracture of the right femur in anatomic position. IMPRESSION: No complicating process seen.
[2021-05-01 21:05] LABS: Basophils % (A) 0 %; Eosinophils % (A) 0 %; HGB 10.8 gm/dL (11.4-16.0); Lymphocytes # (A) 0.5 k/uL (1.0-4.8); Lymphocytes % (A) 4 %; MCH 30.9 pg (25.0-35.0); MCHC 31.7 g/dL (31.0-37.0); MCV 97.3 fL (80.0-100.0); Mean Platelet Volume 7.4; Monocytes # (A) 0.2 k/uL (0-1.0); Monocytes % (A) 2 %; Neutrophils # (A) 10.8 k/uL (1.3-7.7); Neutrophils % (A) 93 %; Platelet Count 216 k/uL (150-450); RBC 3.49 m/uL (3.80-5.40); WBC 11.6 k/uL (3.8-10.6)
[2021-05-01 21:59] LABS: Glucose,Whole Blood 239 mg/dL (75-99)
[2021-05-01] MEDS: PRAVASTATIN SODIUM 80 MG TAB PO SCH (22:26)
[2021-05-01] MEDS: SENNOSIDES-DOCUSATE SODIUM 1 EACH TAB PO SCH (22:26)
[2021-05-01] MEDS: traMADol 50 MG TAB PO SCH (22:27)
[2021-05-01] MEDS: PRAMIPEXOLE 0.5 MG TAB PO SCH (23:01)
[2021-05-01] MEDS: EZETIMIBE 10 MG TAB PO SCH (23:01)
[2021-05-02] MEDS: LEVOTHYROXINE 125 MCG TAB PO SCH (05:38)
[2021-05-02] MEDS: HYDROcodone/APAP 7.5-325MG 1 EACH TAB PO PRN ×4 (05:44→23:28)
[2021-05-02 07:08] LABS: Glucose,Whole Blood 290 mg/dL (75-99)
[2021-05-02] MEDS: INSULIN ASPART (NovoLOG) 100 UNIT/ML VIAL SQ SCH ×4 (07:39→21:12)
[2021-05-02] MEDS: traMADol 50 MG TAB PO SCH ×3 (07:40→21:11)
[2021-05-02] MEDS: METOPROLOL TARTRATE 50 MG TAB PO SCH ×2 (07:40→21:11)
[2021-05-02] MEDS: ENOXAPARIN 30 MG/0.3 ML SYRINGE SQ SCH (07:41)
[2021-05-02] MEDS: FAMOTIDINE 20 MG TAB PO SCH ×2 (07:41→21:12)
--- NOTE | 2021-05-02 07:42 | FL ---
Fluoroscopy History: RT HIP IT NAIL Right hip IT nailing. Dr. Cheng. 3 images scanned. 1:23 sec fl time.
[2021-05-02] MEDS: CITALOPRAM HYDROBROMIDE 10 MG TAB PO SCH (08:04)
[2021-05-02] MEDS: SODIUM CHLORIDE 0.9% 1,000 ML IV SCH (10:04)
--- NOTE | 2021-05-02 10:17 | P.PN ---
Subjective Progress Note Date: 05/02/21 Principal diagnosis: Status post IM nail right intertrochanteric femur fracture Patient was evaluated at bedside today, she is resting comfortably. She is utilizing a hospital chair at this time. Robert cath remains in place. She was just finishing up with physical therapy when I came in the room, therapy such did pretty well for the first day. She is utilizing a walker at this time. She currently denies any headaches, lightheadedness, chest pain or shortness of breath. Objective - Vital Signs Vital signs: Vital Signs Temp 98.3 F 05/02/21 08:00 Pulse 92 05/02/21 08:00 Resp 16 05/02/21 08:00 BP 111/67 05/02/21 08:00 Pulse Ox 97 05/02/21 08:00 Intake & Output 05/01/21 05/02/21 05/02/21 18:59 06:59 18:59 Intake Total 900 301 Output Total 1125 Balance 900 -824 Weight 89.358 kg Intake: IV 900 301 Output: Urine 925 Estimated Blood Loss 200 Other: Voiding Method Indwelling Catheter Toilet - Exam Right lower extremity: Postoperative bandages in good position and condition, lesion obvious drainage appreciated. There is mild soft tissue swelling in the right lower extremity. Logroll maneuver reproduces some discomfort in the upper leg. She's nontender with palpation surrounding the knee, lower leg, foot or ankle. Calf is soft, no tenderness with palpation. Plantar flexion, dorsiflexion, EHL, FHL is intact. Dorsalis pedis pulses 2+. Her sensory exam light touch is intact throughout the extremity - Labs CBC & Chem 7: 05/01/21 20:26 05/01/21 04:15 Labs: Abnormal Lab Results - Last 24 Hours (Table) 05/01/21 05/01/21 05/01/21 Range/Units 16:51 19:52 20:26 WBC 11.6 H (3.8-10.6) k/uL RBC 3.49 L (3.80-5.40) m/uL Hgb 10.8 L (11.4-16.0) gm/dL Neutrophils # 10.8 H (1.3-7.7) k/uL Lymphocytes # 0.5 L (1.0-4.8) k/uL POC Glucose (mg/dL) 151 H 259 H (75-99) mg/dL 05/01/21 05/02/21 Range/Units 21:57 07:01 WBC (3.8-10.6) k/uL RBC (3.80-5.40) m/uL Hgb (11.4-16.0) gm/dL Neutrophils # (1.3-7.7) k/uL Lymphocytes # (1.0-4.8) k/uL POC Glucose (mg/dL) 239 H 290 H (75-99) mg/dL Assessment and Plan Assessment: Postoperative day #1 status post IM nail right intertrochanteric femur fracture Plan: Pain control, continue supportive oral medication, IV pain medication as needed for breakthrough DVT prophylaxis, continue with current medication Leave postoperative dressing in place, we'll change at bedside tomorrow Plan for discontinuation urinary catheter later today Weight-bear as tolerated, utilize walker all times Continue with physical therapy/occupational therapy Medical recommendations Discharge planning: Patient will need subacute rehab placement, hopeful discharge by 05/04/2021 Time with Patient: Less than 30
[2021-05-02 10:49] LABS: Basophils % (A) 0 %; Eosinophils % (A) 0 %; HCT 30.5 % (34.0-46.0); HGB 9.8 gm/dL (11.4-16.0); Lymphocytes # (A) 0.8 k/uL (1.0-4.8); Lymphocytes % (A) 9 %; MCH 31.5 pg (25.0-35.0); MCHC 32.1 g/dL (31.0-37.0); MCV 98.2 fL (80.0-100.0); Mean Platelet Volume 7.8; Monocytes # (A) 0.6 k/uL (0-1.0); Monocytes % (A) 6 %; Neutrophils # (A) 7.9 k/uL (1.3-7.7); Neutrophils % (A) 83 %; Platelet Count 275 k/uL (150-450); RDW 13.1 % (11.5-15.5); WBC 9.4 k/uL (3.8-10.6)
[2021-05-02 10:57] LABS: African American GFR (CKD) >90 (>60 ml/min/1.73 sqM); Anion Gap 11 mmol/L; Blood Urea Nitrogen 20 mg/dL (7-17); Calcium 8.8 mg/dL (8.4-10.2); Carbon Dioxide 21 mmol/L (22-30); Chloride 102 mmol/L (98-107); Glucose 266 mg/dL (74-99); Non-African American GFR(CKD) 80 (>60 ml/min/1.73 sqM); Potassium 4.8 mmol/L (3.5-5.1); Sodium 134 mmol/L (137-145)
[2021-05-02 11:31] LABS: Glucose,Whole Blood 232 mg/dL (75-99)
[2021-05-02 16:39] LABS: Glucose,Whole Blood 255 mg/dL (75-99)
[2021-05-02] MEDS ORDERED: CYCLOBENZAPRINE 10 MG TAB PO STA (17:10)
[2021-05-02 20:24] LABS: Glucose,Whole Blood 226 mg/dL (75-99)
[2021-05-02] MEDS: SENNOSIDES-DOCUSATE SODIUM 1 EACH TAB PO SCH (21:11)
[2021-05-02] MEDS: PRAVASTATIN SODIUM 80 MG TAB PO SCH (21:11)
[2021-05-02] MEDS: EZETIMIBE 10 MG TAB PO SCH (21:12)
[2021-05-02] MEDS: PRAMIPEXOLE 0.5 MG TAB PO SCH (21:12)
[2021-05-02] MEDS ORDERED: CYCLOBENZAPRINE 5 MG TAB PO PRN (22:24)
[2021-05-02] MEDS ORDERED: CYCLOBENZAPRINE 5 MG TAB PO STA (22:32)
[2021-05-03] MEDS: METOPROLOL TARTRATE 50 MG TAB PO SCH ×3 (02:19→20:35)
[2021-05-03] MEDS: LEVOTHYROXINE 125 MCG TAB PO SCH (05:40)
[2021-05-03] MEDS: HYDROcodone/APAP 7.5-325MG 1 EACH TAB PO PRN ×3 (05:40→20:35)
[2021-05-03 07:08] LABS: Glucose,Whole Blood 288 mg/dL (75-99)
[2021-05-03] MEDS: INSULIN ASPART (NovoLOG) 100 UNIT/ML VIAL SQ SCH ×4 (07:37→20:35)
[2021-05-03] MEDS: ENOXAPARIN 30 MG/0.3 ML SYRINGE SQ SCH (07:37)
[2021-05-03] MEDS: traMADol 50 MG TAB PO SCH ×3 (07:38→22:07)
[2021-05-03] MEDS: CITALOPRAM HYDROBROMIDE 10 MG TAB PO SCH (07:39)
[2021-05-03] MEDS: FAMOTIDINE 20 MG TAB PO SCH ×2 (07:39→20:35)
[2021-05-03] MEDS: CYCLOBENZAPRINE 5 MG TAB PO PRN ×2 (09:05→19:20)
--- NOTE | 2021-05-03 09:22 | P.PN ---
Subjective Progress Note Date: 05/02/21 - Reason for Consult Preoperative clearance, hyponatremia - History of Present Illness Patient is a pleasant 70-year-old came in after a mechanical fall and found to have right hip fracture. Medicine was consulted preoperative clearance patient is good functional status and denied any history of coronary artery disease EKG showed sinus rhythm. Patient had a recent total right knee arthroplasty did well with the surgery. Patient is on Klonopin she states it's for her restless leg syndrome and also anxiety patient doesn't like to take SSRIs. Patient is on scheduled Klonopin which will change that as-needed basis and the patient will benefit from SSRIs like the citalopram and we will increase the dose of Mirapex for restless leg. 05/02/2021 She is seen and evaluated in follow-up this morning status post intramedullary nail fixation of the right intertrochanteric femur fracture and is being closely monitored. Patient is currently sitting up in the chair after just working with physical therapy and is having some pain. Patient continues to have muscle spasms of the lower extremities and will adjust Mirapex. Patient had Robert catheter removed today and states she feels the pressure and feeling of needing to go but has not voided yet. Patient denies gas or bowel movements at this time and is tolerating diet. Patient will likely need rehab at [facility] on discharge. Blood sugars mildly elevated and will continue with sliding scale an d Accu-Cheks before meals at bedtime. Labs: White blood count is 9.4, hemoglobin is 9.8, sodium is 134, potassium is 4.8, current creatinine is 0.76, calcium is 8.8. Review of systems: Constitutional: No reports of fatigue, fever, or chills Cardiovascular: No reports of chest pain or palpitations Respiratory: No reports of shortness of breath or cough GI: No reports of nausea, vomiting, or diarrhea : No reports of dysuria or retention, recent Robert catheter removal this morning with feelings of needing to void but has not voided yet Neurovascular: Reports generalized weakness and right hip discomfort All medications have been reviewed PHYSICAL EXAMINATION: GENERAL: The patient is alert and oriented x3, not in any acute distress. Well developed, well nourished. HEENT: Pupils are round and equally reacting to light. EOMI. No scleral icterus. No conjunctival pallor. Normocephalic, atraumatic. No pharyngeal erythema. No thyromegaly. CARDIOVASCULAR: S1 and S2 present. No murmurs, rubs, or gallops. PULMONARY: Chest is clear to auscultation, no wheezing or crackles. ABDOMEN: Soft, nontender, nondistended, normoactive bowel sounds. No palpable organomegaly. MUSCULOSKELETAL: Deferred to orthopedic surgery EXTREMITIES: No cyanosis, clubbing, or pedal edema. NEUROLOGICAL: Gross neurological examination did not reveal any focal deficits. SKIN: No rashes. Assessment and plan: -Preoperative clearance: Patient is a low risk for surgery. -Status post IM nail fixation of the right intertrochanteric femur fracture, postop day 1 -Hyponatremia, hypovolemic secondary to Lasix, improved after holding Lasix and gentle IV hydration -Leukocytosis reactive without any evidence of infection at this time, improved -Restless leg syndrome patient is on Mirapex dose of which will be increased if needed. -Anxiety disorder Klonopin will be made as needed and patient will be started on citalopram -Hypothyroidism -Gastroesophageal reflux disease -Hyperlipidemia -Type 2 diabetes mellitus. Continue sliding scale and Accu-Cheks before meals at bedtime -DVT prophylaxis: As per primary service -Full code Objective - Vital Signs Vital signs: Vital Signs Temp 98.3 F 05/02/21 08:00 Pulse 92 05/02/21 08:00 Resp 16 05/02/21 08:00 BP 111/67 05/02/21 08:00 Pulse Ox 97 05/02/21 08:00 Intake & Output 05/01/21 05/02/21 05/02/21 18:59 06:59 18:59 Intake Total 900 301 Output Total 1125 Balance 900 -824 Weight 89.358 kg Intake: IV 900 301 Output: Urine 925 Estimated Blood Loss 200 Other: Voiding Method Indwelling Catheter - Labs CBC & Chem 7: 05/02/21 09:51 05/02/21 09:51 Labs: Abnormal Lab Results - Last 24 Hours (Table) 05/01/21 05/01/21 05/01/21 Range/Units 16:51 19:52 20:26 WBC 11.6 H (3.8-10.6) k/uL RBC 3.49 L (3.80-5.40) m/uL Hgb 10.8 L (11.4-16.0) gm/dL Neutrophils # 10.8 H (1.3-7.7) k/uL Lymphocytes # 0.5 L (1.0-4.8) k/uL POC Glucose (mg/dL) 151 H 259 H (75-99) mg/dL 05/01/21 05/02/21 Range/Units 21:57 07:01 WBC (3.8-10.6) k/uL RBC (3.80-5.40) m/uL Hgb (11.4-16.0) gm/dL Neutrophils # (1.3-7.7) k/uL Lymphocytes # (1.0-4.8) k/uL POC Glucose (mg/dL) 239 H 290 H (75-99) mg/dL
[2021-05-03 10:58] LABS: Basophils # (A) 0.03 X 10*3/uL (0.00-0.10); Basophils % (A) 0.4 %; Eosinophils # (A) 0 X 10*3/uL (0.04-0.35); Eosinophils % (A) 0 %; HCT 24.9 % (37.2-46.3); HGB 7.7 g/dL (12.0-15.0); Lymphocytes # (A) 0.84 X 10*3/uL (0.90-5.00); Lymphocytes % (A) 11.7 %; MCH 30.3 pg (27.0-32.0); MCHC 30.9 g/dL (32.0-37.0); Mean Platelet Volume 10.2 fL (9.5-12.2); Monocytes # (A) 0.69 X 10*3/uL (0.20-1.00); Monocytes % (A) 9.6 %; Neutrophils # (A) 5.59 X 10*3/uL (1.80-7.70); Neutrophils % (A) 77.9 %; Platelet Count 169 X 10*3/uL (140-440); RBC 2.54 X 10*6/uL (4.10-5.20); RDW 13.6 % (11.5-14.5); WBC 7.18 X 10*3/uL (4.50-10.00)
[2021-05-03 11:48] LABS: Glucose,Whole Blood 219 mg/dL (75-99)
--- NOTE | 2021-05-03 11:57 | P.CONS ---
History of Present Illness - Chief Complaint Walking difficulty, right hip fracture - History of Present Illness I had the opportunity to see patient for inpatient rehab consultation with regard to walking difficulty. Patient admitted to [facility] May 01 history of recent right TKA, apparently tripped and fell ambulating around Harper chair to plug-in phone when she tripped and fell. She protected her neighbor landed on her right hip which causes discomfort. Evaluated. Hip and pelvic x-ray demonst rated acute right intertrochanteric fracture as well as evulsion lesser trochanter. Right knee with good anatomic alignment. Was seen by Dr. Abreu for medical. Seen by Dr. Isai Jones who did perform IM nailing and screws date of admission. Has started therapies. PT reports two-person assistance bed mobility, transfers, gait 3 feet with roller walker. OT reports moderate assistance for upper dressing and total assistance for lower dressing and toileting maximal assistance for bathing. 2 person moderate assistance functional debility and transfers. Previous functional history as elicited from patient corroborative by son: 70-year-old right-handed white female who is lives in one floor home with and an same son. All are retired. with agent orange exposure but they otherwise all share cooking and laundry. does not drive. Patient was independent with standup shower and occasional need a standard cane generally outdoors and for curbs previously. PCP Dr. Patton. Denies tobacco or alcohol. Review of Systems Review of systems: ENT: Denies sneezes or discharge. Eyes: Denies discharge or photophobia. Cardiac: Denies chest pain or palpitation. Pulmonary: Denies cough or shortness of breath. Breast: Denies discharge or lumps. Gastrointestinal: Denies nausea, emesis, constipation, diarrhea. Genitourinary: Denies discharge or frequency. Musculoskeletal: Right hip and thigh discomfort. Neurologic: Denies motor or sensory change. Endocrine: Denies shakes or sweats. Oncology: Denies cancers. Dermatologic: Denies rash, itching, pruritus. ALLERGY/immunology: Denies sneezes, rashes. Past Medical History Past Medical History: Diabetes Mellitus, GERD/Reflux, Hyperlipidemia, H ypertension, Osteoarthritis (OA), Pneumonia, Thyroid Disorder Additional Past Medical History / Comment(s): hx migraines, varicose veins, neuropathy, "chicken shots in [place] knees", knees give out, hx thyroid nodues, TRK 03/05/21 History of Any Multi-Drug Resistant Organisms: None Reported Past Surgical History: Orthopedic Surgery Additional Past Surgical History / Comment(s): Right knee arthroscopy, thyroidectomy, polyps removed from vocal cords, Past Anesthesia/Blood Transfusion Reactions: No Reported Reaction Past Psychological History: Anxiety, Depression Additional Psychological History / Comment(s): with current health issues Smoking Status: Former smoker Past Alcohol Use History: None Reported Additional Past Alcohol Use History / Comment(s): quit smoking 15 yrs ago, smoked since age 28, 1 PPD or less Past Drug Use History: None Reported - Past Family History Father Family Medical History: Cancer Additional Family Medical History / Comment(s): lung Medications and Allergies Home Medications Medication Instructions Recorded Confirmed Type Ergocalciferol [Vitamin D2 (1250 1,250 unit PO Q14D 02/27/21 05/01/21 History Mcg = 47870 Iu)] Ezetimibe [Zetia] 10 mg PO HS 02/27/21 05/01/21 History Furosemide [Lasix] 40 mg PO DAILY 02/27/21 05/01/21 History Glimepiride [Amaryl] 1 mg PO DAILY 02/27/21 05/01/21 History HYDROcodone/APAP 10-325MG [[place] 1 tab PO Q6HR PRN 02/27/21 05/01/21 History 10-325] Levothyroxine Sodium [Synthroid] 125 mcg PO DAILY 02/27/21 05/01/21 History Metoprolol Tartrate [Lopressor] 100 mg PO BID 02/27/21 05/01/21 History Omeprazole [PriLOSEC] 20 mg PO DAILY PRN 02/27/21 05/01/21 History Potassium Chloride ER [K-Dur 10] 10 meq PO DAILY 02/27/21 05/01/21 History Pramipexole Di-HCl [Mirapex] 0.5 mg PO HS 02/27/21 05/01/21 History Pravastatin Sodium [Pravachol] 80 mg PO HS 02/27/21 05/01/21 History lisinopriL [Zestril] 5 mg PO HS 02/27/21 05/01/21 History sitaGLIPtin [Januvia] 100 mg PO DAILY 02/27/21 05/01/21 History clonazePAM [KlonoPIN] 2 mg PO BID #6 tab 03/08/21 05/01/21 Rx Cyclobenzaprine [Flexeril] 10 mg PO PC-LUNCH 05/01/21 05/01/21 History Eszopiclone [Lunesta] 2 mg PO HS PRN 05/01/21 05/01/21 History Allergies Allergy/AdvReac Type Severity Reaction Status Date / Time ezetimibe [From Vytorin] AdvReac weakness Verified 05/01/21 07:15 gabapentin [From Neurontin] AdvReac weakness, Verified 05/01/21 07:15 leg pain morphine AdvReac Itching Verified 05/01/21 07:15 pregabalin [From Lyrica] AdvReac leg pain Verified 05/01/21 07:15 rosuvastatin [From Crestor] AdvReac leg pain Verified 05/01/21 07:15 simvastatin [From Vytorin] AdvReac weakness Verified 05/01/21 07:15 Physical Exam Vitals: Vital Signs Temp Pulse Resp BP Pulse Ox 05/03/21 08:00 98.2 F 106 H 16 112/73 96 05/03/21 02:00 98.4 F 103 H 16 107/61 92 L 05/02/21 19:59 99.0 F 101 H 16 96/62 91 L 05/02/21 14:00 98.5 F 95 16 119/56 92 L Intake and Output 05/02/21 05/03/21 05/03/21 22:59 06:59 14:59 Intake Total 236 Balance 236 Intake: Oral 236 Other: Voiding Method Bedside Commode # Voids 1 2 Skin: Atrophic, intact. General: Overweight build and comfortable appearance. Head: Normocephalic, atraumatic. Eyes: Symmetric. Pupils equal round. Ears: Symmetric. Hearing within normal limits. Mouth: Clear. Neck: Supple. Carotid without bruit. Cardiac: Regular rate and rhythm. Lungs: Clear anteriorly and posteriorly. Abdomen: Soft active nontender, overweight. Extremities: Normal tone. Neurological: Mental status: Alert, cooperative, pleasant. Cranial nerves: Symmetric facial tone and trapezius. Motor: Active movement all 4 limbs but with giveaway weakness right hip and leg. Sensation: Intact throughout. DTRs: Symmetric and equal throughout. Mobility: Requires two-person assistance transfer to bedside Harper chair. Results CBC & Chem 7: 05/03/21 07:13 05/02/21 09:51 Labs: Abnormal Lab Results - Last 24 Hours (Table) 05/02/21 05/02/21 05/03/21 Range/Units 16:32 20:22 07:07 RBC (4.10-5.20) X 10*6/uL Hgb (12.0-15.0) g/dL Hct (37.2-46.3) % MCV (80.0-97.0) fL MCHC (32.0-37.0) g/dL Lymphocytes # (0.90-5.00) X 10*3/uL Eosinophils # (0.04-0.35) X 10*3/uL POC Glucose (mg/dL) 255 H 226 H 288 H (75-99) mg/dL 05/03/21 05/03/21 Range/Units 07:13 11:47 RBC 2.54 L (4.10-5.20) X 10*6/uL Hgb 7.7 L (12.0-15.0) g/dL Hct 24.9 L (37.2-46.3) % MCV 98.0 H (80.0-97.0) fL MCHC 30.9 L (32.0-37.0) g/dL Lymphocytes # 0.84 L (0.90-5.00) X 10*3/uL Eosinophils # 0 L (0.04-0.35) X 10*3/uL POC Glucose (mg/dL) 219 H (75-99) mg/dL Assessment and Plan (1) Fracture of right hip Current Visit: Yes Status: Acute Code(s): S72.001A - FRACTURE OF UNSP PART OF NECK OF RIGHT FEMUR, INIT SNOMED Code(s): 414354147 Plan: Impression: 1. Walking only related to right hip IT fracture status post repair. 2. Recent right TKA. 3. Hypertension. 4. Disability. 5. Osteoarthritis. 6. Hypothyroid. 7. Diabetes. Comments and plan: At this time PT and OT are ongoing. Safety concerns noted. His demonstrated ability tolerate and benefit from therapies. We'll except for inpatient rehab however have no available beds. Consider alternative rehab or subacute rehab placement.
--- NOTE | 2021-05-03 12:55 | P.PN ---
Subjective Progress Note Date: 05/03/21 Principal diagnosis: Status post IM nail right intertrochanteric femur fracture, acute blood loss anemia surgical outcome Patient was evaluated today at bedside, she is resting in her hospital chair. He had a practice the patient today, dressing changes done at bedside. I have een speaking with both case management and social regarding discharge. We are working on arrangements for inpatient rehab versus subacute rehab. Patient states that she is feeling okay, she was having some spasming in the late yesterday. Her pain is overall controlled at this time. She continues to utilize a walker with ambulation. She denies any headaches, lightheadedness or chest pain. Objective - Vital Signs Vital signs: Vital Signs Temp 98.2 F 05/03/21 08:00 Pulse 106 H 05/03/21 08:00 Resp 16 05/03/21 08:00 BP 112/73 05/03/21 08:00 Pulse Ox 96 05/03/21 08:00 Intake & Output 05/02/21 05/03/21 05/03/21 18:59 06:59 18:59 Intake Total 236 Balance 236 Intake: Oral 236 Other: Voiding Method Toilet Bedside Commode Bedside Commode # Voids 1 2 - Exam Right lower extremity: Incisions are clean, dry and intact. [place] are in good position. There is mild soft tissue swelling in the right lower extremity. Logroll maneuver reproduces some discomfort in the upper leg. She's nontender with palpation surrounding the knee, lower leg, foot or ankle. Calf is soft, no tenderness with palpation. Plantar flexion, dorsiflexion, EHL, FHL is intact. Dorsalis pedis pulses 2+. Her sensory exam light touch is intact throughout the extremity - Labs CBC & Chem 7: 05/03/21 07:13 05/02/21 09:51 Labs: Abnormal Lab Results - Last 24 Hours (Table) 05/02/21 05/02/21 05/03/21 Range/Units 16:32 20:22 07:07 RBC (4.10-5.20) X 10*6/uL Hgb (12.0-15.0) g/dL Hct (37.2-46.3) % MCV (80.0-97.0) fL MCHC (32.0-37.0) g/dL Lymphocytes # (0.90-5.00) X 10*3/uL Eosinophils # (0.04-0.35) X 10*3/uL POC Glucose (mg/dL) 255 H 226 H 288 H (75-99) mg/dL 05/03/21 05/03/21 Range/Units 07:13 11:47 RBC 2.54 L (4.10-5.20) X 10*6/uL Hgb 7.7 L (12.0-15.0) g/dL Hct 24.9 L (37.2-46.3) % MCV 98.0 H (80.0-97.0) fL MCHC 30.9 L (32.0-37.0) g/dL Lymphocytes # 0.84 L (0.90-5.00) X 10*3/uL Eosinophils # 0 L (0.04-0.35) X 10*3/uL POC Glucose (mg/dL) 219 H (75-99) mg/dL Assessment and Plan Assessment: Postoperative day #2 status post IM nail right intertrochanteric femur fracture Acute blood loss anemia, expected surgical outcome Plan: Pain control, continue with oral medication, IV pain medication for breakthrough DVT prophylaxis, continue Lovenox 30 mg subcu daily, plan for discharge on this medication also 20% weightbearing with walker Type and screen along with one unit of packed RBC has been ordered for anemia. We will begin ferrous sulfate 325 mg twice a day for discharge Continue with physical therapy/occupational therapy Medical recommendations discharge planning: Will speak with case management/social work later today regarding discharge and make recommendation Time with Patient: Less than 30
--- NOTE | 2021-05-03 13:29 | P.PN ---
Subjective Progress Note Date: 05/03/21 - Reason for Consult Preoperative clearance, hyponatremia - History of Present Illness Patient is a pleasant 70-year-old came in after a mechanical fall and found to have right hip fracture. Medicine was consulted preoperative clearance patient is good functional status and denied any history of coronary artery disease EKG showed sinus rhythm. Patient had a recent total right knee arthroplasty did well with the surgery. Patient is on Klonopin she states it's for her restless leg syndrome and also anxiety patient doesn't like to take SSRIs. Patient is on scheduled Klonopin which will change that as-needed basis and the patient will benefit from SSRIs like the citalopram and we will increase the dose of Mirapex for restless leg. 05/02/2021 She is seen and evaluated in follow-up this morning status post intramedullary nail fixation of the right intertrochanteric femur fracture and is being closely monitored. Patient is currently sitting up in the chair after just working with physical therapy and is having some pain. Patient continues to have muscle spasms of the lower extremities and will adjust Mirapex. Patient had Robert catheter removed today and states she feels the pressure and feeling of needing to go but has not voided yet. Patient denies gas or bowel movements at this time and is tolerating diet. Patient will likely need rehab at [facility] on discharge. Blood sugars mildly elevated and will continue with sliding scale an d Accu-Cheks before meals at bedtime. 05/03/2021 Patient is seen and evaluated in follow-up this morning somewhat anxious about being discharged today although will be subacute rehab or possible inpatient rehab which is being attempted. Patient's hemoglobin is 7.7 today and will be giving 1 unit of PRBC per orthopedic services. Patient continued Accu-Cheks before meals and at bedtime as blood sugars have been elevated and will resume oral hypoglycemics on discharge. Recommend continue sliding scale in the outpatient setting for now. Social work following working on basement. Will continue to follow with orthopedics during hospitalization. Labs: White blood count is 7.18, hemoglobin is 7.7, platelets are 169 Review of systems: Constitutional: No reports of fatigue, fever, or chills Cardiovascular: No reports of chest pain or palpitations Respiratory: No reports of shortness of breath or cough GI: No reports of nausea, vomiting, or diarrhea : No reports of dysuria or retention Neurovascular: Reports generalized weakness and right hip discomfort and continued muscle spasms of the lower extremities All medications have been reviewed PHYSICAL EXAMINATION: GENERAL: The patient is alert and oriented x3, not in any acute distress. Well developed, well nourished. HEENT: Pupils are round and equally reacting to light. EOMI. No scleral icterus. No conjunctival pallor. Normocephalic, atraumatic. No pharyngeal erythema. No thyromegaly. CARDIOVASCULAR: S1 and S2 present. No murmurs, rubs, or gallops. PULMONARY: Chest is clear to auscultation, no wheezing or crackles. ABDOMEN: Soft, nontender, nondistended, normoactive bowel sounds. No palpable organomegaly. MUSCULOSKELETAL: Deferred to orthopedic surgery EXTREMITIES: No cyanosis, clubbing, or pedal edema. NEUROLOGICAL: Gross neurological examination did not reveal any focal deficits. SKIN: No rashes. Assessment and plan: -Preoperative clearance: Patient is a low risk for surgery. -Status post IM nail fixation of the right intertrochanteric femur fracture, postop day 2 -Acute blood loss anemia, most likely a component of recent surgery -Hyponatremia, hypovolemic secondary to Lasix, improved after holding Lasix and gentle IV hydration -Leukocytosis reactive without any evidence of infection at this time, improved -Restless leg syndrome patient is on Mirapex and increased today -Anxiety disorder Klonopin will be made as needed and patient will be started on citalopram -Hypothyroidism -Gastroesophageal reflux disease -Hyperlipidemia -Type 2 diabetes mellitus. Continue sliding scale and Accu-Cheks before meals at bedtime -DVT prophylaxis: As per primary service -Full code Plan: Patient is being followed closely by orthopedics is primary service and working on placement at inpatient rehab or possible subacute rehab for continued PT/OT therapy. Social work following and awaiting for accepting facility at inpatient rehab or may discharge to [facility] tomorrow if [facility] inpatient rehab in [place] is not available. Hemoglobin 7.7 today and being transfused 1 unit of PRBC and will repeat CBC or recommend close outpatient follow-up for repeat labs in 2-3 days to monitor this along with a BMP. Will send prescription for the chart. Mirapex has been adjusted as patient continues to have spasms in her lower extremities. Recommend continuing Accu-Cheks before meals and at bedtime and continue sliding scale as blood sugars continue to be mildly elevated. Will continue to follow along during hospitalization with orthopedics. Thank you for this consultation. Objective - Vital Signs Vital signs: Vital Signs Temp 98.2 F 05/03/21 08:00 Pulse 106 H 05/03/21 08:00 Resp 16 05/03/21 08:00 BP 112/73 05/03/21 08:00 Pulse Ox 96 05/03/21 08:00 Intake & Output 05/02/21 05/03/21 05/03/21 18:59 06:59 18:59 Intake Total 236 Balance 236 Intake: Oral 236 Other: Voiding Method Toilet Bedside Commode # Voids 1 2 - Labs CBC & Chem 7: 05/03/21 07:13 05/02/21 09:51 Labs: Abnormal Lab Results - Last 24 Hours (Table) 05/02/21 05/02/21 05/02/21 Range/Units 09:51 09:51 11:28 RBC 3.10 L (3.80-5.40) m/uL Hgb 9.8 L (11.4-16.0) gm/dL Hct 30.5 L (34.0-46.0) % Neutrophils # 7.9 H (1.3-7.7) k/uL Lymphocytes # 0.8 L (1.0-4.8) k/uL Sodium 134 L (137-145) mmol/L Carbon Dioxide 21 L (22-30) mmol/L BUN 20 H (7-17) mg/dL Glucose 266 H (74-99) mg/dL POC Glucose (mg/dL) 232 H (75-99) mg/dL 05/02/21 05/02/21 05/03/21 Range/Units 16:32 20:22 07:07 RBC (3.80-5.40) m/uL Hgb (11.4-16.0) gm/dL Hct (34.0-46.0) % Neutrophils # (1.3-7.7) k/uL Lymphocytes # (1.0-4.8) k/uL Sodium (137-145) mmol/L Carbon Dioxide (22-30) mmol/L BUN (7-17) mg/dL Glucose (74-99) mg/dL POC Glucose (mg/dL) 255 H 226 H 288 H (75-99) mg/dL
[2021-05-03] MEDS: HYDROmorphone 0.5 MG/0.5 ML SYRINGE IVP PRN (13:30)
[2021-05-03 16:39] LABS: Glucose,Whole Blood 231 mg/dL (75-99)
[2021-05-03 20:09] LABS: Glucose,Whole Blood 241 mg/dL (75-99)
[2021-05-03] MEDS: EZETIMIBE 10 MG TAB PO SCH (20:34)
[2021-05-03] MEDS: PRAVASTATIN SODIUM 80 MG TAB PO SCH (20:35)
[2021-05-03] MEDS: SENNOSIDES-DOCUSATE SODIUM 1 EACH TAB PO SCH (20:35)
[2021-05-03] MEDS: PRAMIPEXOLE 0.5 MG TAB PO SCH (20:35)
[2021-05-04] MEDS: HYDROmorphone 0.5 MG/0.5 ML SYRINGE IVP PRN (01:07)
[2021-05-04] MEDS: HYDROcodone/APAP 7.5-325MG 1 EACH TAB PO PRN ×4 (06:02→23:56)
[2021-05-04] MEDS: LEVOTHYROXINE 125 MCG TAB PO SCH (06:02)
[2021-05-04 07:12] LABS: Glucose,Whole Blood 284 mg/dL (75-99)
[2021-05-04] MEDS: INSULIN ASPART (NovoLOG) 100 UNIT/ML VIAL SQ SCH ×4 (09:12→21:00)
[2021-05-04] MEDS: CITALOPRAM HYDROBROMIDE 10 MG TAB PO SCH (09:13)
[2021-05-04] MEDS: METOPROLOL TARTRATE 50 MG TAB PO SCH ×2 (09:13→20:59)
[2021-05-04] MEDS: ENOXAPARIN 40 MG/0.4 ML SYRINGE SQ SCH (09:13)
[2021-05-04] MEDS: FAMOTIDINE 20 MG TAB PO SCH ×2 (09:13→20:59)
[2021-05-04] MEDS: traMADol 50 MG TAB PO SCH ×3 (09:14→22:08)
--- NOTE | 2021-05-04 10:07 | P.PN ---
Subjective Progress Note Date: 05/04/21 Principal diagnosis: Status post IM nail right intertrochanteric femur fracture, acute blood loss anemia surgical outcome Patient was evaluated today at bedside, she is resting in her hospital bed. Patient states that she does feel very tired today. She did receive 1 unit of p acked RBCs yesterday. She was unable to be discharged to inpatient rehab, patient will remain in hospital through the weekend. he continues to utilize a walker with ambulation. She denies any headaches, lightheadedness or chest pain. Objective - Vital Signs Vital signs: Vital Signs Temp 98.5 F 05/04/21 06:41 Pulse 80 05/04/21 06:41 Resp 16 05/04/21 02:00 BP 121/74 05/04/21 06:41 Pulse Ox 96 05/04/21 06:41 Intake & Output 05/03/21 05/04/21 05/04/21 18:59 06:59 18:59 Intake Total 1018 240 Balance 1018 240 Intake: Oral 708 240 Blood Product 310 Rc As-1 Unit 310 [id number] Other: Voiding Method Bedside Commode Bedside Commode # Voids 2 2 # Bowel Movements 1 - Exam Right lower extremity: Incisions are clean, dry and intact. [place] are in good position. There is mild soft tissue swelling in the right lower extremity. Logroll maneuver reproduces some discomfort in the upper leg. She's nontender with palpation surrounding the knee, lower leg, foot or ankle. Calf is soft, no tenderness wit h palpation. Plantar flexion, dorsiflexion, EHL, FHL is intact. Dorsalis pedis pulses 2+. Her sensory exam light touch is intact throughout the extremity - Labs CBC & Chem 7: 05/03/21 07:13 05/02/21 09:51 Labs: Abnormal Lab Results - Last 24 Hours (Table) 05/03/21 05/03/21 05/03/21 Range/Units 07:13 11:47 12:48 RBC 2.54 L (4.10-5.20) X 10*6/uL Hgb 7.7 L (12.0-15.0) g/dL Hct 24.9 L (37.2-46.3) % MCV 98.0 H (80.0-97.0) fL MCHC 30.9 L (32.0-37.0) g/dL Lymphocytes # 0.84 L (0.90-5.00) X 10*3/uL Eosinophils # 0 L (0.04-0.35) X 10*3/uL POC Glucose (mg/dL) 219 H (75-99) mg/dL Crossmatch See Detail 05/03/21 05/03/21 05/04/21 Range/Units 16:38 20:07 07:11 RBC (4.10-5.20) X 10*6/uL Hgb (12.0-15.0) g/dL Hct (37.2-46.3) % MCV (80.0-97.0) fL MCHC (32.0-37.0) g/dL Lymphocytes # (0.90-5.00) X 10*3/uL Eosinophils # (0.04-0.35) X 10*3/uL POC Glucose (mg/dL) 231 H 241 H 284 H (75-99) mg/dL Crossmatch Assessment and Plan Assessment: Postoperative day #3 status post IM nail right intertrochanteric femur fracture Acute blood loss anemia, expected surgical outcome Plan: Pain control, continue with oral medication, IV pain medication for breakthrough DVT prophylaxis, continue Lovenox 30 mg subcu daily, plan for discharge on this medication also 20% weightbearing with walker Ferrous sulfate 325 mg twice a day has been started, CBC will be drawn on 05/05/2021 Continue with physical therapy/occupational therapy Medical recommendations Discharge planning: We'll continue to work with case management/social work with discharge plan, hopeful discharge on 07/06/2020 2 inpatient rehab vs subacute rehab Time with Patient: Less than 30
[2021-05-04 11:34] LABS: Glucose,Whole Blood 255 mg/dL (75-99)
--- NOTE | 2021-05-04 12:12 | P.PN ---
Subjective Patient is a pleasant 70-year-old came in after a mechanical fall and found to have right hip fracture. Medicine was consulted preoperative clearance patient is good functional status and denied any history of coronary artery disease EKG showed sinus rhythm. Patient had a recent total right knee arthroplasty did well with the surgery. Patient is on Klonopin she states it's for her restless leg syndrome and also anxiety patient doesn't like to take SSRIs. Patient is on scheduled Klonopin which will change that as-needed basis and the patient will benefit from SSRIs like the citalopram and we will increase the dose of Mirapex for restless leg. 05/02/2021 She is seen and evaluated in follow-up this morning status post intramedullary nail fixation of the right intertrochanteric femur fracture and is being closely monitored. Patient is currently sitting up in the chair after just working with physical therapy and is having some pain. Patient continues to have muscle spasms of the lower extremities and will adjust Mirapex. Patient had Robert catheter removed today and states she feels the pressure and feeling of needing to go but has not voided yet. Patient denies gas or bowel movements at this time and is tolerating diet. Patient will likely need rehab at [facility] on discharge. Blood sugars mildly elevated and will continue with sliding scale and Accu-Cheks before meals at bedtime. 05/03/2021 Patient is seen and evaluated in follow-up this morning somewhat anxious about being discharged today although will be subacute rehab or possible inpatient rehab which is being attempted. Patient's hemoglobin is 7.7 today and will be giving 1 unit of PRBC per orthopedic services. Patient continued Accu-Cheks before meals and at bedtime as blood sugars have been elevated and will resume oral hypoglycemics on discharge. Recommend continue sliding scale in the outpatient setting for now. Social work following working on basement. Will continue to follow with orthopedics during hospitalization. Labs: White blood count is 7.18, hemoglobin is 7.7, platelets are 169 Review of systems: Constitutional: No reports of fatigue, fever, or chills Cardiovascular: No reports of chest pain or palpitations Respiratory: No reports of shortness of breath or cough GI: No reports of nausea, vomiting, or diarrhea : No reports of dysuria or retention Neurovascular: Reports generalized weakness and right hip discomfort and continu ed muscle spasms of the lower extremities All medications have been reviewed PHYSICAL EXAMINATION: GENERAL: The patient is alert and oriented x3, not in any acute distress. Well developed, well nourished. HEENT: Pupils are round and equally reacting to light. EOMI. No scleral icterus. No conjunctival pallor. Normocephalic, atraumatic. No pharyngeal erythema. No thyromegaly. CARDIOVASCULAR: S1 and S2 present. No murmurs, rubs, or gallops. PULMONARY: Chest is clear to auscultation, no wheezing or crackles. ABDOMEN: Soft, nontender, nondistended, normoactive bowel sounds. No palpable organomegaly. MUSCULOSKELETAL: Deferred to orthopedic surgery EXTREMITIES: No cyanosis, clubbing, or pedal edema. NEUROLOGICAL: Gross neurological examination did not reveal any focal deficits. SKIN: No rashes. Assessment and plan: -Status post IM nail fixation of the right intertrochanteric femur fracture, postop day 3 -Acute blood loss anemia, secondary to surgery status post transfusion -Hyponatremia, hypovolemic secondary to Lasix, improved after holding Lasix and gentle IV hydration -Leukocytosis reactive without any evidence of infection at this time, improved -Restless leg syndrome patient is on Mirapex improved symptoms at this time -Anxiety disorder Klonopin will be made as needed and patient will be started on citalopram -Hypothyroidism -Gastroesophageal reflux disease -Hyperlipidemia -Type 2 diabetes mellitus. Continue sliding scale and Accu-Cheks before meals at bedtime -DVT prophylaxis: As per primary service -Full code Objective - Vital Signs Vital signs: Vital Signs Temp 98.5 F 05/04/21 06:41 Pulse 80 05/04/21 06:41 Resp 16 05/04/21 02:00 BP 121/74 05/04/21 06:41 Pulse Ox 96 05/04/21 06:41 Intake & Output 05/03/21 05/04/21 05/04/21 18:59 06:59 18:59 Intake Total 1018 240 Balance 1018 240 Intake: Oral 708 240 Blood Product 310 Rc As-1 Unit 310 [id number] Other: Voiding Method Bedside Commode Bedside Commode # Voids 2 2 # Bowel Movements 1 - Labs CBC & Chem 7: 05/03/21 07:13 05/02/21 09:51 Labs: Abnormal Lab Results - Last 24 Hours (Table) 05/03/21 05/03/21 05/03/21 Range/Units 12:48 16:38 20:07 POC Glucose (mg/dL) 231 H 241 H (75-99) mg/dL Crossmatch See Detail 05/04/21 05/04/21 Range/Units 07:11 11:32 POC Glucose (mg/dL) 284 H 255 H (75-99) mg/dL Crossmatch
[2021-05-04] MEDS: CYCLOBENZAPRINE 5 MG TAB PO PRN ×2 (12:44→20:59)
[2021-05-04 16:55] LABS: Glucose,Whole Blood 188 mg/dL (75-99)
[2021-05-04] MEDS: FERROUS SULFATE 325 MG TAB PO SCH (17:21)
[2021-05-04 20:28] LABS: Glucose,Whole Blood 243 mg/dL (75-99)
[2021-05-04] MEDS: SENNOSIDES-DOCUSATE SODIUM 1 EACH TAB PO SCH (20:59)
[2021-05-04] MEDS: EZETIMIBE 10 MG TAB PO SCH (20:59)
[2021-05-04] MEDS: PRAMIPEXOLE 0.5 MG TAB PO SCH (20:59)
[2021-05-04] MEDS: PRAVASTATIN SODIUM 80 MG TAB PO SCH (20:59)
[2021-05-05] MEDS: CYCLOBENZAPRINE 5 MG TAB PO PRN ×3 (03:06→20:44)
[2021-05-05] MEDS: HYDROcodone/APAP 7.5-325MG 1 EACH TAB PO PRN ×3 (06:00→17:19)
[2021-05-05] MEDS: LEVOTHYROXINE 125 MCG TAB PO SCH (06:00)
[2021-05-05 07:17] LABS: Glucose,Whole Blood 245 mg/dL (75-99)
[2021-05-05] MEDS: INSULIN ASPART (NovoLOG) 100 UNIT/ML VIAL SQ SCH ×4 (07:38→20:45)
[2021-05-05] MEDS: ENOXAPARIN 40 MG/0.4 ML SYRINGE SQ SCH (07:38)
[2021-05-05] MEDS: FERROUS SULFATE 325 MG TAB PO SCH ×2 (07:38→17:20)
[2021-05-05] MEDS: METOPROLOL TARTRATE 50 MG TAB PO SCH ×2 (07:39→20:45)
[2021-05-05] MEDS: traMADol 50 MG TAB PO SCH ×3 (07:39→21:59)
[2021-05-05] MEDS: CITALOPRAM HYDROBROMIDE 10 MG TAB PO SCH (07:39)
[2021-05-05] MEDS: FAMOTIDINE 20 MG TAB PO SCH ×2 (07:39→20:45)
--- NOTE | 2021-05-05 08:49 | P.PN ---
Subjective Patient is a pleasant 70-year-old came in after a mechanical fall and found to have right hip fracture. Medicine was consulted preoperative clearance patient is good functional status and denied any history of coronary artery disease EKG showed sinus rhythm. Patient had a recent total right knee arthroplasty did well with the surgery. Patient is on Klonopin she states it's for her restless leg syndrome and also anxiety patient doesn't like to take SSRIs. Patient is on scheduled Klonopin which will change that as-needed basis and the patient will benefit from SSRIs like the citalopram and we will increase the dose of Mirapex for restless leg. 05/02/2021 She is seen and evaluated in follow-up this morning status post intramedullary nail fixation of the right intertrochanteric femur fracture and is being closely monitored. Patient is currently sitting up in the chair after just working with physical therapy and is having some pain. Patient continues to have muscle spasms of the lower extremities and will adjust Mirapex. Patient had Robert catheter removed today and states she feels the pressure and feeling of needing to go but has not voided yet. Patient denies gas or bowel movements at this time and is tolerating diet. Patient will likely need rehab at [facility] on discharge. Blood sugars mildly elevated and will continue with sliding scale and Accu-Cheks before meals at bedtime. 05/03/2021 Patient is seen and evaluated in follow-up this morning somewhat anxious about being discharged today although will be subacute rehab or possible inpatient rehab which is being attempted. Patient's hemoglobin is 7.7 today and will be giving 1 unit of PRBC per orthopedic services. Patient continued Accu-Cheks before meals and at bedtime as blood sugars have been elevated and will resume oral hypoglycemics on discharge. Recommend continue sliding scale in the outpatient setting for now. Social work following working on basement. Will continue to follow with orthopedics during hospitalization. 05/05/2021 Patient is clinically doing well no significant overnight events awaiting disposition to subacute rehabitation. Review of systems: Constitutional: No reports of fatigue, fever, or chills Cardiovascular: No reports of chest pain or palpitations Respiratory: No reports of shortness of breath or cough GI: No reports of nausea, vomiting, or diarrhea : No reports of dysuria or retention Neurovascular: Reports generalized weakness and right hip discomfort and continued muscle spasms of the lower extremities All medications have been reviewed PHYSICAL EXAMINATION: GENERAL: The patient is alert and oriented x3, not in any acute distress. Well developed, well nourished. HEENT: Pupils are round and equally reacting to light. EOMI. No scleral icterus. No conjunctival pallor. Normocephalic, atraumatic. No pharyngeal erythema. No thyromegaly. CARDIOVASCULAR: S1 and S2 present. No murmurs, rubs, or gallops. PULMONARY: Chest is clear to auscultation, no wheezing or crackles. ABDOMEN: Soft, nontender, nondistended, normoactive bowel sounds. No palpable organomegaly. MUSCULOSKELETAL: Deferred to orthopedic surgery EXTREMITIES: No cyanosis, clubbing, or pedal edema. NEUROLOGICAL: Gross neurological examination did not reveal any focal deficits. SKIN: No rashes. Assessment and plan: -Status post IM nail fixation of the right intertrochanteric femur fracture, postop day 3 -Acute blood loss anemia, secondary to surgery status post transfusion -Hyponatremia, hypovolemic secondary to Lasix, improved after holding Lasix and gentle IV hydration -Leukocytosis reactive without any evidence of infection at this time, improved -Restless leg syndrome patient is on Mirapex improved symptoms at this time -Anxiety disorder Klonopin will be made as needed and patient will be started on citalopram -Hypothyroidism -Gastroesophageal reflux disease -Hyperlipidemia -Type 2 diabetes mellitus. Continue sliding scale and Accu-Cheks before meals at bedtime -DVT prophylaxis: As per primary service -Full code Objective - Vital Signs Vital signs: Vital Signs Temp 97.7 F 05/05/21 05:40 Pulse 88 05/05/21 05:40 Resp 15 05/05/21 05:40 BP 155/85 05/05/21 05:40 Pulse Ox 95 05/05/21 05:40 Intake & Output 05/04/21 05/05/21 05/05/21 18:59 06:59 18:59 Intake Total 360 Balance 360 Intake: Oral 360 Other: Voiding Method Bedside Commode # Voids 1 - Labs CBC & Chem 7: 05/03/21 07:13 05/02/21 09:51 Labs: Abnormal Lab Results - Last 24 Hours (Table) 05/04/21 05/04/21 05/04/21 Range/Units 11:32 16:53 20:26 POC Glucose (mg/dL) 255 H 188 H 243 H (75-99) mg/dL 05/05/21 Range/Units 07:16 POC Glucose (mg/dL) 245 H (75-99) mg/dL
--- NOTE | 2021-05-05 10:10 | P.PN ---
Subjective Progress Note Date: 05/05/21 Principal diagnosis: Status post IM nail right intertrochanteric femur fracture, acute blood loss anemia surgical outcome Patient was evaluated today at bedside, she is resting in her hospital bed. No acute events overnight. She denies any headaches, lightheadedness or chest p ain. Objective - Vital Signs Vital signs: Vital Signs Temp 97.7 F 05/05/21 05:40 Pulse 88 05/05/21 05:40 Resp 15 05/05/21 05:40 BP 155/85 05/05/21 05:40 Pulse Ox 95 05/05/21 05:40 Intake & Output 05/04/21 05/05/21 05/05/21 18:59 06:59 18:59 Intake Total 360 Balance 360 Intake: Oral 360 Other: Voiding Method Bedside Commode # Voids 1 - Exam Right lower extremity: Dressing was changed today, there was some mild serosanguineous/bloody drainage present. [place] are all in good position and condition, Steri-Strips at the proximal end of the proximal incision are in good position and condition. Mild ecchymosis is present. There is mild soft tissue swelling in the right lower extremity. Logroll maneuver reproduces some discomfort in the upper leg. She's nontender with palpation surrounding the knee, lower leg, foot or ankle. Calf is soft, no tenderness with palpation. Plantar flexion, dorsiflexion, EHL, FHL is intact. Dorsalis pedis pulses 2+. Her sensory exam light touch is intact throughout the extremity - Labs CBC & Chem 7: 05/03/21 07:13 05/02/21 09:51 Labs: Abnormal Lab Results - Last 24 Hours (Table) 05/04/21 05/04/21 05/04/21 Range/Units 11:32 16:53 20:26 POC Glucose (mg/dL) 255 H 188 H 243 H (75-99) mg/dL 05/05/21 Range/Units 07:16 POC Glucose (mg/dL) 245 H (75-99) mg/dL Assessment and Plan Assessment: Postoperative day #4 status post IM nail right intertrochanteric femur fracture Acute blood loss anemia, expected surgical outcome Plan: Pain control, continue with oral medication, IV pain medication for breakthrough DVT prophylaxis, continue Lovenox 30 mg subcu daily, plan for discharge on this medication also 20% weightbearing with walker Ferrous sulfate 325 mg twice a day has been started, monitor CBC Continue with physical therapy/occupational therapy Medical recommendations Discharge planning: We'll continue to work with case management/social work with discharge plan, hopeful discharge on 07/06/2020 2 inpatient rehab vs subacute rehab Time with Patient: Less than 30
[2021-05-05 11:10] LABS: Basophils # (A) 0.01 X 10*3/uL (0.00-0.10); Basophils % (A) 0.2 %; Eosinophils # (A) 0 X 10*3/uL (0.04-0.35); Eosinophils % (A) 0 %; HCT 26.5 % (37.2-46.3); HGB 8.3 g/dL (12.0-15.0); Lymphocytes # (A) 1.07 X 10*3/uL (0.90-5.00); Lymphocytes % (A) 16.5 %; MCH 30.1 pg (27.0-32.0); MCHC 31.3 g/dL (32.0-37.0); Mean Platelet Volume 9.9 fL (9.5-12.2); Monocytes # (A) 0.52 X 10*3/uL (0.20-1.00); Neutrophils # (A) 4.85 X 10*3/uL (1.80-7.70); Neutrophils % (A) 74.7 %; Platelet Count 210 X 10*3/uL (140-440); RBC 2.76 X 10*6/uL (4.10-5.20); RDW 13.8 % (11.5-14.5); WBC 6.49 X 10*3/uL (4.50-10.00)
[2021-05-05 11:40] LABS: Glucose,Whole Blood 246 mg/dL (75-99)
[2021-05-05 16:50] LABS: Glucose,Whole Blood 217 mg/dL (75-99)
[2021-05-05 20:31] LABS: Glucose,Whole Blood 261 mg/dL (75-99)
[2021-05-05] MEDS: SENNOSIDES-DOCUSATE SODIUM 1 EACH TAB PO SCH (20:44)
[2021-05-05] MEDS: EZETIMIBE 10 MG TAB PO SCH (20:44)
[2021-05-05] MEDS: PRAVASTATIN SODIUM 80 MG TAB PO SCH (20:45)
[2021-05-05] MEDS: PRAMIPEXOLE 0.5 MG TAB PO SCH (20:45)
[2021-05-06] MEDS: HYDROcodone/APAP 7.5-325MG 1 EACH TAB PO PRN ×3 (00:42→12:17)
[2021-05-06] MEDS: CYCLOBENZAPRINE 5 MG TAB PO PRN ×2 (03:15→09:33)
[2021-05-06] MEDS: LEVOTHYROXINE 125 MCG TAB PO SCH (05:45)
[2021-05-06 07:34] LABS: Glucose,Whole Blood 255 mg/dL (75-99)
[2021-05-06 08:11] VITALS: BP 137/67; PULSE 98; RESP 18; TEMP 98.3
[2021-05-06] MEDS: traMADol 50 MG TAB PO SCH (08:20)
[2021-05-06] MEDS: METOPROLOL TARTRATE 50 MG TAB PO SCH (08:20)
[2021-05-06] MEDS: FERROUS SULFATE 325 MG TAB PO SCH (08:20)
[2021-05-06] MEDS: FAMOTIDINE 20 MG TAB PO SCH (08:21)
[2021-05-06] MEDS: INSULIN ASPART (NovoLOG) 100 UNIT/ML VIAL SQ SCH ×2 (08:21→12:15)
[2021-05-06] MEDS: CITALOPRAM HYDROBROMIDE 10 MG TAB PO SCH (08:21)
[2021-05-06] MEDS: ENOXAPARIN 40 MG/0.4 ML SYRINGE SQ SCH (08:21)
[2021-05-06 11:41] LABS: Glucose,Whole Blood 212 mg/dL (75-99)
--- NOTE | 2021-05-06 12:19 | P.DS ---
Providers Date of admission: 05/01/21 05:05 Expected date of discharge: 05/06/21 Attending physician: Delvin Cheng Consults: 05/01/21 05:06 Consult Physician Routine Consulting Provider: Laura Lezama Consult Reason/Comments: medical management Do you want consulting provider notified?: Yes 05/03/21 10:25 Consult Physician Routine Consulting Provider: Yves Reyes Consult Reason/Comments: evaluate for inpatient rehab Do you want consulting provider notified?: Yes [facility] [place] [facility] Course: Date of admission: 05/01/2021 Date of discharge: Admission diagnosis: Right hip IT fracture Discharge diagnosis: Same Attending physician: Dr. Cheng Surgical procedures: Right hip IM nail Brief history: Patient is a 70-year-old female with a history of right hip IT fracture status post fall. At this point patient has failed conservative treatment measures and has opted to proceed with a elective right hip IM nail. Hospital course: Details of patient's surgery can be found in operative report. Patient tolerated the procedure well and was subsequently transported to orthopedic floor. Patient's orthopedic and medical care was provided daily. Patient had daily laboratory tests performed for evaluation of overall blood counts . Patient had daily physical therapy to include strengthening range of motion as well as education with walker ambulation. Patient was treated with Lovenox for their postoperative DVT prophylaxis during their inpatient stay. Patient was noted to have a relatively uneventful postoperative course. Patient reported satisfactory pain control with oral pain medications by postoperative day 5. Patient showed satisfactory progress with physical therapy. Patient moved steadily through the program and had no difficulty meeting the goals by postoperative day 5. Given patient's otherwise satisfactory course and having met physical therapy goals, plan is to discharge patient inpatient rehab in [place] on postoperative day 5. Discharge condition/disposition: Patient will be discharged inpatient rehab in [place] in stable condition. Discharge medications: Instructions are given on resumption of patient's normal daily medications per primary care recommendation, in addition patient will be prescribed Brunson 10/325 mg; Flexeril 10 mg; tramadol 50 mg; Lovenox 30 mg SQ Discharge instructions: 1. Wound care and infection precautions, keep incision dry and covered while showering, no lotions, creams, moisturizers. No soaking, tubs, pools, hottubs. Do not scrub over the incision. 2. Weight-bear as tolerated with walker / cane until follow-up. 3. Ice and elevate when necessary. Do not exceed 20 minutes per hour with ice pack. 4. Utilize compression sleeve until seen at first follow up appointment. 5. Visiting nursing care. 6. Home physical therapy. 7. Pain meds and anticoagulants per prescription. 8. Pain medication has potential to cause constipation. Increase oral fluid and fiber intake. Contact primary care provider if you have not had a bowel movement within 48 hours after discharge 9. No anti-inflammatory medication until discussed at first post operative vis it, this including Motrin, Aleve, Mobic, Diclofenac. 10. Follow up in office at 2 weeks postop with Yves Wade PA-C / Mikie Bah PA-C 11. Follow up with your primary care doctor 7-10 days after discharge. 12. Contact [facility] with any questions, . Assessment: Right hip intertrochanteric fracture Procedures: Right hip IM nail Patient Condition at Discharge: Good Plan - Discharge Summary Discharge Rx Participant: No New Discharge Prescriptions: New clonazePAM 2 mg PO BID 3 Days #6 tab Ferrous Sulfate [Iron (65 MG Elemental)] 325 mg PO BID #60 tab Enoxaparin [Lovenox] 30 mg SQ DAILY #26 each Mag Hydrox/Al Hydrox/Simeth [Maalox] 15 ml PO Q6HR PRN ml PRN Reason: Indigestion INSULIN ASPART (NovoLOG) [NovoLOG (formulary)] 0 unit SQ ACHS ml Sennosides-Docusate Sodium [Senokot-S] 2 each PO HS tab Cyclobenzaprine [Flexeril] 10 mg PO HS PRN #10 tab PRN Reason: Muscle Spasm HYDROcodone/APAP 10-325MG [Brunson 10-325] 1 tab PO Q6HR PRN 3 Days #28 tab PRN Reason: Pain Citalopram Hydrobromide [CeleXA] 10 mg PO DAILY tab Famotidine [Pepcid] 20 mg PO BID tab traMADol HCl [Ultram] 50 mg PO TID #10 tab Continue Ergocalciferol [Vitamin D2 (1250 Mcg = 62689 Iu)] 1,250 unit PO Q14D Omeprazole [PriLOSEC] 20 mg PO DAILY PRN PRN Reason: reflux Pravastatin Sodium [Pravachol] 80 mg PO HS sitaGLIPtin [Januvia] 100 mg PO DAILY Metoprolol Tartrate [Lopressor] 100 mg PO BID Ezetimibe [Zetia] 10 mg PO HS Glimepiride [Amaryl] 1 mg PO DAILY Levothyroxine Sodium [Synthroid] 125 mcg PO DAILY clonazePAM [KlonoPIN] 2 mg PO BID #6 tab Eszopiclone [Lunesta] 2 mg PO HS PRN PRN Reason: Insomnia Cyclobenzaprine [Flexeril] 10 mg PO PC-LUNCH Changed Pramipexole Di-HCl [Mirapex] 1 mg PO HS #0 Discontinued Potassium Chloride ER [K-Dur 10] 10 meq PO DAILY Furosemide [Lasix] 40 mg PO DAILY HYDROcodone/APAP 10-325MG [Brunson 10-325] 1 tab PO Q6HR PRN PRN Reason: Pain lisinopriL [Zestril] 5 mg PO HS Discharge Medication List Ergocalciferol [Vitamin D2 (1250 Mcg = 72235 Iu)] 1,250 unit PO Q14D 02/27/21 [History] Ezetimibe [Zetia] 10 mg PO HS 02/27/21 [History] Glimepiride [Amaryl] 1 mg PO DAILY 02/27/21 [History] Levothyroxine Sodium [Synthroid] 125 mcg PO DAILY 02/27/21 [History] Metoprolol Tartrate [Lopressor] 100 mg PO BID 02/27/21 [History] Omeprazole [PriLOSEC] 20 mg PO DAILY PRN 02/27/21 [History] Pravastatin Sodium [Pravachol] 80 mg PO HS 02/27/21 [History] sitaGLIPtin [Januvia] 100 mg PO DAILY 02/27/21 [History] clonazePAM [KlonoPIN] 2 mg PO BID #6 tab 03/08/21 [Rx] Cyclobenzaprine [Flexeril] 10 mg PO PC-LUNCH 05/01/21 [History] Eszopiclone [Lunesta] 2 mg PO HS PRN 05/01/21 [History] Citalopram Hydrobromide [CeleXA] 10 mg PO DAILY tab 05/03/21 [Rx] Cyclobenzaprine [Flexeril] 10 mg PO HS PRN #10 tab 05/03/21 [Rx] Enoxaparin [Lovenox] 30 mg SQ DAILY #26 each 05/03/21 [Rx] Famotidine [Pepcid] 20 mg PO BID tab 05/03/21 [Rx] Ferrous Sulfate [Iron (65 MG Elemental)] 325 mg PO BID #60 tab 05/03/21 [Rx] HYDROcodone/APAP 10-325MG [Brunson 10-325] 1 tab PO Q6HR PRN 3 Days #28 tab 05/03/21 [Rx] INSULIN ASPART (NovoLOG) [NovoLOG (formulary)] 0 unit SQ ACHS ml 05/03/21 [Rx] Mag Hydrox/Al Hydrox/Simeth [Maalox] 15 ml PO Q6HR PRN ml 05/03/21 [Rx] Pramipexole Di-HCl [Mirapex] 1 mg PO HS #0 05/03/21 [Rx] Sennosides-Docusate Sodium [Senokot-S] 2 each PO HS tab 05/03/21 [Rx] clonazePAM 2 mg PO BID 3 Days #6 tab 05/03/21 [Rx] traMADol HCl [Ultram] 50 mg PO TID #10 tab 05/03/21 [Rx] Follow up Appointment(s)/Referral(s): Mikie Bah, ADRIENNE [PHYSICIAN ARTILLERY OFFICER] - 2 Weeks Thierno Patton DO [Primary Care Provider] - 1-2 days Activity/Diet/Wound Care/Special Instructions: Patients purse is in the locked locker on 4S unit Orthopedic Discharge Instructions: 1. Wound care and infection precautions, keep incision dry and covered while showering, no lotions, creams, moisturizers. No soaking, pools, hot tubs. Do not scrub over incision. 2. 20% weightbearing on right lower extremity, utilizing a walker at all times 3. Ice and elevate when necessary. Do not exceed 20 minutes per hour with ice pack. 4. Utilize compression sleeve until seen at first follow up appointment. 5. Pain meds and anticoagulants per prescription. 6. Pain medication has potential to cause constipation. Increase oral fluid and fiber intake. Contact primary care provider if you have not had a bowel movement within 48 hours after discharge. 7. No anti-inflammatory medication until discussed at first post operative visit, this including Motrin, Aleve, Mobic, Diclofenac. 8. Follow up in office at 2 weeks postop with Yves Wade PA-C/Mikie Bah PA-C 9. Follow up with your primary care doctor 7-10 days after discharge. 10. Contact [facility] with any questions, . Recommend continue sliding scale and Accu-Cheks before meals and at bedtime NovoLog sliding scale 0-150 equals 0 units 151-200 equals 2 units 201-250 equals 4 units 251-300 equals 6 units 301-350 equals 8 units 351-400 equals 10 units Please notify provider if blood sugar is 400 or above Continue heart healthy consistent carb diet Follow-up with primary care provider on discharge Discharge Disposition: TRANSFER TO SNF/ECF
--- NOTE | 2021-05-06 12:51 | P.PN ---
Subjective Progress Note Date: 05/06/21 Principal diagnosis: right hip IT fracture Patient was seen at bedside this morning resting comfortably lying semirecumbent bed. Patient says she did get up this morning and at the bedside commode. She says she still is having some discomfort/pain right hip. She does say she tries to move her leg while in bed. Patient denies chest pain, fever, chest breath, nausea, vomiting, change in vision, loss of bowel/bladder control. Objective - Vital Signs Vital signs: Vital Signs Temp 98.3 F 05/06/21 08:00 Pulse 98 05/06/21 08:00 Resp 18 05/06/21 08:00 BP 137/67 05/06/21 08:00 Pulse Ox 95 05/06/21 08:00 Intake & Output 05/05/21 05/06/21 05/06/21 18:59 06:59 18:59 Other: Voiding Method Bedside Commode # Voids 1 - Exam Inspection: Right leg incisions clean, dry, intact. Dinesh are well aligned and in place. Steri-Strips were holding well and proximal portion incision. Negative for any evidence of open fracture, erythema. Minimal swelling and ecchymosis. Palpation: Moderate tenderness to palpation diffusely over right hip. Nontender to palpation throughout right knee Sensation: Sensation is equal, symmetric, intact bilaterally Range of motion: Range of motion is limited in right leg in hip flexion/extension and external and internal rotation due to pain. Full range of motion left leg in hip flexion/extension and knee flexion/extension. Full range of motion in plantar and dorsiflexion bilaterally. Log roll maneuver reproduces some pain Motor: right hip exam limited due to patient's pain. 5/5 in resisted flexion/extension of left hip and left knee. 5/5 in his plantar/dorsiflexion bilaterally Neurovascular status: Cap Refill under 3 seconds bilaterally in LE; DP pulses present, 2+ intact. - Labs CBC & Chem 7: 05/05/21 07:25 05/02/21 09:51 Labs: Abnormal Lab Results - Last 24 Hours (Table) 05/05/21 05/05/21 05/05/21 Range/Units 07:25 11:38 16:48 RBC 2.76 L (4.10-5.20) X 10*6/uL Hgb 8.3 L (12.0-15.0) g/dL Hct 26.5 L (37.2-46.3) % MCHC 31.3 L (32.0-37.0) g/dL Eosinophils # 0 L (0.04-0.35) X 10*3/uL POC Glucose (mg/dL) 246 H 217 H (75-99) mg/dL 05/05/21 05/06/21 Range/Units 20:22 07:25 RBC (4.10-5.20) X 10*6/uL Hgb (12.0-15.0) g/dL Hct (37.2-46.3) % MCHC (32.0-37.0) g/dL Eosinophils # (0.04-0.35) X 10*3/uL POC Glucose (mg/dL) 261 H 255 H (75-99) mg/dL Assessment and Plan Assessment: Postoperative day #5 status post right hip IM nail Plan: 1. Right hip intertrochanteric fracture; history of recent right total knee arthroplasty - surgery performed 05/01/2021 - right hip IM nail. Patient stable at bedside this morning. plan discharge to [place] inpatient rehab this afternoon 2. Appreciate medical management 3. Pain management - oral pain medications 4. GI prophylaxis - Maalox and Pepcid 5. DVT ppx - Lovenox 6. PT/OT - 20% weightbearing right leg; WBAT left leg 7. Encourage incentive spirometer use 8. Discharge planning - plan discharge to [place] inpatient rehab today Time with Patient: Less than 30
--- NOTE | 2021-05-06 15:09 | P.PN ---
Subjective Progress Note Date: 05/06/21 - Reason for Consult Preoperative clearance, hyponatremia - History of Present Illness Patient is a pleasant 70-year-old came in after a mechanical fall and found to have right hip fracture. Medicine was consulted preoperative clearance patient is good functional status and denied any history of coronary artery disease EKG showed sinus rhythm. Patient had a recent total right knee arthroplasty did well with the surgery. Patient is on Klonopin she states it's for her restless leg syndrome and also anxiety patient doesn't like to take SSRIs. Patient is on scheduled Klonopin which will change that as-needed basis and the patient will benefit from SSRIs like the citalopram and we will increase the dose of Mirapex for restless leg. 05/02/2021 She is seen and evaluated in follow-up this morning status post intramedullary nail fixation of the right intertrochanteric femur fracture and is being closely monitored. Patient is currently sitting up in the chair after just working with physical therapy and is having some pain. Patient continues to have muscle spasms of the lower extremities and will adjust Mirapex. Patient had Robert catheter removed today and states she feels the pressure and feeling of needing to go but has not voided yet. Patient denies gas or bowel movements at this time and is tolerating diet. Patient will likely need [facility] at [facility] on discharge. Blood sugars mildly elevated and will continue with sliding scale an d Accu-Cheks before meals at bedtime. 05/03/2021 Patient is seen and evaluated in follow-up this morning somewhat anxious about being discharged today although will be subacute rehab or possible inpatient rehab which is being attempted. Patient's hemoglobin is 7.7 today and will be giving 1 unit of PRBC per orthopedic services. Patient continued Accu-Cheks before meals and at bedtime as blood sugars have been elevated and will resume oral hypoglycemics on discharge. Recommend continue sliding scale in the outpatient setting for now. Social work following working on basement. Will continue to follow with orthopedics during hospitalization. 05/06/2021 Patient is seen in follow-up this morning with no acute overnight issues noted. Patient is being scheduled for discharge and transport to [facility] inpatient hospitalization for continued rehab. Following with orthopedic surgery. Med reconciliation was done and instructed the patient to follow-up with primary upon discharge from rehab. Patient denies any chest pain, shortness of breath, or palpitations. Patient is afebrile. No reports of nausea or vomiting and patient is tolerating diet. Review of systems: Constitutional: No reports of fatigue, fever, or chills Cardiovascular: No reports of chest pain or palpitations Respiratory: No reports of shortness of breath or cough GI: No reports of nausea, vomiting, or diarrhea : No reports of dysuria or retention Neurovascular: Reports generalized weakness and right hip discomfort All medications have been reviewed PHYSICAL EXAMINATION: GENERAL: The patient is alert and oriented x3, not in any acute distress. Well developed, well nourished. HEENT: Pupils are round and equally reacting to light. EOMI. No scleral icterus. No conjunctival pallor. Normocephalic, atraumatic. No pharyngeal erythema. No thyromegaly. CARDIOVASCULAR: S1 and S2 present. No murmurs, rubs, or gallops. PULMONARY: Chest is clear to auscultation, no wheezing or crackles. ABDOMEN: Soft, nontender, nondistended, normoactive bowel sounds. No palpable organomegaly. MUSCULOSKELETAL: Deferred to orthopedic surgery EXTREMITIES: No cyanosis, clubbing, or pedal edema. NEUROLOGICAL: Gross neurological examination did not reveal any focal deficits. SKIN: No rashes. Assessment and plan: -Status post IM nail fixation of the right intertrochanteric femur fracture -Acute blood loss anemia, secondary to recent surgery, status post transfusion -Hyponatremia, hypovolemic secondary to Lasix -Leukocytosis reactive without any evidence of infection at this time, improved -Restless leg syndrome patient is on Mirapex and will continue -Anxiety disorder Klonopin will be made as needed and patient will be started on citalopram -Hypothyroidism -Gastroesophageal reflux disease -Hyperlipidemia -Type 2 diabetes mellitus. Continue sliding scale and Accu-Cheks before meals at bedtime -DVT prophylaxis: As per primary service -Full code Plan: Patient is being followed closely by orthopedics is primary service and have an accepting facility at [facility] inpatient rehab out of [facility] and will be transferred there today. Hemoglobin is stable at 8.3 and recommend outpatient follow-up and monitoring of labs in the outpatient setting. Continue home medications and med reconciliation was done for discharge. Will continue to follow along during hospitalization with orthopedics. Thank you for this consultation. Objective - Vital Signs Vital signs: Vital Signs Temp 98.3 F 05/06/21 08:00 Pulse 98 05/06/21 08:00 Resp 18 05/06/21 08:00 BP 137/67 05/06/21 08:00 Pulse Ox 95 05/06/21 08:00 Intake & Output 05/05/21 05/06/21 05/06/21 18:59 06:59 18:59 Other: Voiding Method Bedside Commode # Voids 1 - Labs CBC & Chem 7: 05/05/21 07:25 05/02/21 09:51 Labs: Abnormal Lab Results - Last 24 Hours (Table) 05/05/21 05/05/21 05/05/21 Range/Units 07:25 11:38 16:48 RBC 2.76 L (4.10-5.20) X 10*6/uL Hgb 8.3 L (12.0-15.0) g/dL Hct 26.5 L (37.2-46.3) % MCHC 31.3 L (32.0-37.0) g/dL Eosinophils # 0 L (0.04-0.35) X 10*3/uL POC Glucose (mg/dL) 246 H 217 H (75-99) mg/dL 05/05/21 05/06/21 Range/Units 20:22 07:25 RBC (4.10-5.20) X 10*6/uL Hgb (12.0-15.0) g/dL Hct (37.2-46.3) % MCHC (32.0-37.0) g/dL Eosinophils # (0.04-0.35) X 10*3/uL POC Glucose (mg/dL) 261 H 255 H (75-99) mg/dL
== END 2021-05-06 13:45 | DRG 481 ==
LOC: EC 02:59 → 5NMEDONC 05:05 → 4SSUR 08:40
PROVIDERS: ADMIT Orthopaedic Surgery; ATTEND Orthopaedic Surgery
PROC: 0QS606Z Reposition Right Upper Femur with Intramedullary Internal Fixation Device, Open Approach (ICD-10-PCS; principal; 2021-05-01 07:30)
DX: S72.141A Displaced intertrochanteric fracture of right femur, initial encounter for closed fracture (principal); D62 Acute posthemorrhagic anemia; E87.1 Hypo-osmolality and hyponatremia; D72.829 Elevated white blood cell count, unspecified; E11.9 Type 2 diabetes mellitus without complications; E78.5 Hyperlipidemia, unspecified; E86.1 Hypovolemia; E89.0 Postprocedural hypothyroidism; F32.9 Major depressive disorder, single episode, unspecified; F41.9 Anxiety disorder, unspecified; G25.81 Restless legs syndrome; I10 Essential (primary) hypertension; K21.9 Gastro-esophageal reflux disease without esophagitis; M19.90 Unspecified osteoarthritis, unspecified site; T50.1X5A Adverse effect of loop [high-ceiling] diuretics, initial encounter; W01.0XXA Fall on same level from slipping, tripping and stumbling without subsequent striking against object, initial encounter; Z20.822 Contact with and (suspected) exposure to COVID-19; Y92.009 Unspecified place in unspecified non-institutional (private) residence as the place of occurrence of the external cause; Z79.01 Long term (current) use of anticoagulants; Z79.4 Long term (current) use of insulin; Z79.82 Long term (current) use of aspirin; Z79.890 Hormone replacement therapy; Z79.899 Other long term (current) drug therapy; Z87.891 Personal history of nicotine dependence; Z96.651 Presence of right artificial knee joint
CPT/HCPCS: 36415; 71045; 73501; 73502; 80048; 81001; 85025; 85610; 85730; 86850; 86900; 86901; 86920; 87635; 93005; 96374; 96376; 99285

== ENCOUNTER → 2022-10-15 | Outpatient (CLI) | payer MEDICARE, OTHER ==
--- NOTE | 2022-10-15 15:55 | BD ---
EXAMINATION TYPE: Axial Bone Density DATE OF EXAM: 10/15/2022 CLINICAL HISTORY: 72 years old Female. ICD-10 CODE: [id number] OF BONE, Height: 65 Weight: 220 FRAX RISK QUESTIONS: Family History (Parent hip fracture): no History of Fracture in Adulthood: yes, rt hip ,knee, and femur Secondary Osteoporosis: no RISK FACTORS HISTORY OF: Hip Fracture (Right): yes When: 2020 Surgery to Hip: yes When: 2020 Family History of Osteoporosis: yes, sister Active: no Diet low in dairy products/other sources of calcium: no Postmenopausal woman: yes Lost more than 2 inches in height since high school: no Frequent falls: no Poor Health: no MEDICATIONS: Thyroid Medications: yes Which medication: Synthroid How Lon+ years Additional Medications: yes Lunesta, vit d, Pravastatin, Lasix, reflux, Klonopin EXAM MEASUREMENTS: Bone mineral densitometry was performed using the Eqalix System. Bone mineral density as measured about the Lumbar spine is: ----- L1-L4(G/cm2): 0.991 T Score Values are as follows: ----- L1: -2.4 ----- L2: -1.3 ----- L3: -1.0 ----- L4: -1.8 ----- L1-L4: -1.6 Z Score Values are as follows: ----- L1: -1.9 ----- L2: -0.7 ----- L3: -0.5 ----- L4: -1.3 ----- L1-L4: -1.0 Bone mineral density has: Increased 0.3% since study of: 04/24/2020 Bone mineral density about the L hip (g/cm2): 0.719 T Score values are as follows: -----L Neck: -2.3 -----L Total: -2.3 Z Score values are as follows: -----L Neck: -1.2 -----L Total: -1.5 Bone mineral density has: Decreased -1.8% since study of: 04/24/2020 FRAX%s: The graph provided illustrates a 20.5% chance for a major osteoporotic fx and a 5.0% chance f or the hips probability for fx in 10 years time. IMPRESSION: Osteopenia (T Score between -2.5 and -1). There is slightly increased risk of fracture and the patient may be considered for treatment. Re-Screen 2-5 years. NOTE: T-SCORE=SD OF THE YOUNG ADULT MEAN.
--- NOTE | 2022-10-17 08:02 | MM ---
Reason for Exam: Screening (asymptomatic). Last mammogram was performed 2 year(s) and 6 month(s) ago. Patient History: Menarche at age 11. First Full-Term at age 18. Postmenopausal. Paternal aunt had breast cancer. Risk Values: Ban 5 year model risk: 1.3%. NCI Lifetime model risk: 3.1%. Prior Study Comparison: 05/06/2016 Bilateral Screening Mammogram, [facility]. 12/15/2017 Bilateral Screening Mammogram, [facility]. 04/24/2020 Bilateral Screening Mammogram, [facility]. Tissue Density: There are scattered fibroglandular densities. Findings: Analyzed By CAD. There is no suspicious group of microcalcifications or new suspicious mass in either breast. Benign calcifications within both breasts. Chronic nodularity within both breasts. Overall Assessment: Benign, BI-RAD 2 Management: Screening Mammogram of both breasts in 1 year. A clinical breast exam by your physician is recommended on an annual basis and results should be correlated with mammographic findings. Electronically signed and approved by: Juliano Alvarez D.O.
== END | disposition home or self-care (01) ==
LOC: RADBDWWP 11:19
PROVIDERS: ATTEND Family Medicine
DX: Z12.31 Encounter for screening mammogram for malignant neoplasm of breast (principal); M85.89 Other specified disorders of bone density and structure, multiple sites; E55.9 Vitamin D deficiency, unspecified; Z78.0 Asymptomatic menopausal state; Z80.3 Family history of malignant neoplasm of breast
CPT/HCPCS: 77063; 77067; 77080

== ENCOUNTER 2023-06-12 11:18 | Emergency (ER) | payer MEDICARE, OTHER ==
[2023-06-12] MEDS ORDERED: KETOROLAC 15 MG/ML 1 ML VIAL IM STA (11:38)
--- NOTE | 2023-06-12 11:42 | ED ---
Fall HPI - General Chief Complaint: Fall Stated Complaint: hip pain-fall Time Seen by Provider: 06/12/23 11:27 Source: patient, EMS, RN notes reviewed Mode of arrival: EMS - History of Present Illness Initial Comments: Patient is a 72-year-old female presenting via EMS with chief complaint of a fall. Patient states she was getting out of her recliner and tripped over the side table landing on her bottom. Patient reports that her right leg was in the shape of an L. Patient states she was unable to get up so she called EMS. She did state that she could bear slight weight on her right leg. Patient is also complaining of right shoulder pain from the fall. She has had her right hip and knee replaced by Dr. Cheng. Patient denies any paresthesias, head injury, loss of consciousness, blood thinner use. - Related Data Home Medications Medication Instructions Recorded Confirmed Ergocalciferol [Vitamin D2 (1250 1,250 unit PO Q14D 02/27/21 05/01/21 Mcg = 58929 Iu)] Ezetimibe [Zetia] 10 mg PO HS 02/27/21 05/01/21 Glimepiride [Amaryl] 1 mg PO DAILY 02/27/21 05/01/21 Levothyroxine Sodium [Synthroid] 125 mcg PO DAILY 02/27/21 05/01/21 Metoprolol Tartrate [Lopressor] 100 mg PO BID 02/27/21 05/01/21 Omeprazole [PriLOSEC] 20 mg PO DAILY PRN 02/27/21 05/01/21 Pravastatin Sodium [Pravachol] 80 mg PO HS 02/27/21 05/01/21 sitaGLIPtin [Januvia] 100 mg PO DAILY 02/27/21 05/01/21 Cyclobenzaprine [Flexeril] 10 mg PO PC-LUNCH 05/01/21 05/01/21 Eszopiclone [Lunesta] 2 mg PO HS PRN 05/01/21 05/01/21 Previous Rx's Medication Instructions Recorded clonazePAM [KlonoPIN] 2 mg PO BID #6 tab 03/08/21 Citalopram Hydrobromide [CeleXA] 10 mg PO DAILY tab 05/03/21 Cyclobenzaprine [Flexeril] 10 mg PO HS PRN #10 tab 05/03/21 Enoxaparin [Lovenox] 30 mg SQ DAILY #26 each 05/03/21 Famotidine [Pepcid] 20 mg PO BID tab 05/03/21 Ferrous Sulfate [Iron (65 MG 325 mg PO BID #60 tab 05/03/21 Elemental)] HYDROcodone/APAP 10-325MG [[place] 1 tab PO Q6HR PRN 3 Days #28 tab 05/03/21 10-325] INSULIN ASPART (NovoLOG) [NovoLOG 0 unit SQ ACHS ml 05/03/21 (formulary)] Mag Hydrox/Al Hydrox/Simeth 15 ml PO Q6HR PRN ml 05/03/21 [Maalox] Pramipexole Di-HCl [Mirapex] 1 mg PO HS #0 05/03/21 Sennosides-Docusate Sodium 2 each PO HS tab 05/03/21 [Senokot-S] clonazePAM 2 mg PO BID 3 Days #6 tab 05/03/21 traMADol HCl [Ultram] 50 mg PO TID #10 tab 05/03/21 Allergies Allergy/AdvReac Type Severity Reaction Status Date / Time ezetimibe [From Vytorin] AdvReac weakness Verified 06/12/23 11:27 gabapentin [From Neurontin] AdvReac weakness, Verified 06/12/23 11:27 leg pain morphine AdvReac Itching Verified 06/12/23 11:27 pregabalin [From Lyrica] AdvReac leg pain Verified 06/12/23 11:27 rosuvastatin [From Crestor] AdvReac leg pain Verified 06/12/23 11:27 simvastatin [From Vytorin] AdvReac weakness Verified 06/12/23 11:27 Review of Systems ROS Statement: Those systems with pertinent positive or pertinent negative responses have been documented in the HPI. ROS Other: All systems not noted in ROS Statement are negative. Past Medical History Past Medical History: Diabetes Mellitus, GERD/Reflux, Hyperlipidemia, Hypertension, Osteoarthritis (OA), Pneumonia, Thyroid Disorder Additional Past Medical History / Comment(s): hx migraines, varicose veins, neuropathy, "chicken shots in [place] knees", knees give out, hx thyroid nodues, TRK 03/05/21 History of Any Multi-Drug Resistant Organisms: None Reported Past Surgical History: Orthopedic Surgery Additional Past Surgical History / Comment(s): Right knee arthroscopy, thyroidectomy, polyps removed from vocal cords, Past Anesthesia/Blood Transfusion Reactions: No Reported Reaction Past Psychological History: Anxiety, Depression Smoking Status: Former smoker Past Alcohol Use History: None Reported Past Drug Use History: None Reported - Past Family History Father Family Medical History: Cancer Additional Family Medical History / Comment(s): lung General Exam Limitations: no limitations General appearance: alert, in no apparent distress Head exam: Present: atraumatic, normocephalic, normal inspection Eye exam: Present: normal appearance, PERRL, EOMI. Absent: scleral icterus, conjunctival injection, periorbital swelling Respiratory exam: Present: normal lung sounds bilaterally. Absent: respiratory distress, wheezes, rales, rhonchi, stridor Cardiovascular Exam: Present: regular rate, normal rhythm, normal heart sounds. Absent: systolic murmur, diastolic murmur, rubs, gallop, clicks Extremities exam: Present: other (straight leg roll + bilaterally. pain with palpitation of bilateral knees. 2+ bilateral DP pulse. No bony tenderness of right shoulder, 2+ right radial pulse) Neurological exam: Present: alert, oriented X3, CN II-XII intact Psychiatric exam: Present: normal affect, normal mood Skin exam: Present: warm, dry, intact, normal color. Absent: rash Course Vital Signs 06/12/23 11:22 Temperature 97.7 F Pulse Rate 107 H Respiratory 18 Rate Blood Pressure 128/93 O2 Sat by Pulse 97 Oximetry Medical Decision Making - Medical Decision Making Was pt. sent in by a medical professional or institution (, PA, ANTIQUE CLOCKS REPAIRER, urgent care, hospital, or long-term...) When possible be specific @ -No Did you speak to anyone other than the patient for history (EMS, parent, family, police, friend...)? What history was obtained from this source @ -EMS Did you review nursing and triage notes (agree or disagree)? Why? @ -I reviewed and agree with nursing and triage notes Were old charts reviewed (outside hosp., previous admission, EMS record, old EKG, old radiological studies, urgent care reports/EKG's, long-term records)? Report findings @ -No old charts were reviewed Differential Diagnosis (chest pain, altered mental status, abdominal pain women, abdominal pain men, vaginal bleeding, weakness, fever, dyspnea, syncope, headache, dizziness, GI bleed, back pain, seizure, CVA, palpatations, mental health, musculoskeletal)? @ -Differential Musculoskeletal: Muscular strain, contusion, ligament sprain, fracture, arthritis, septic arthritis, bursitis, cellulitis, muscle spasm, nerve compression, DVT, arterial occlusion, herpes zoster, electrolyte abnormality, tumor.... This is not meant to be in all inclusive list EKG interpreted by me (3pts min.). @ -None X-rays interpreted by me (1pt min.). @ -Right knee x-ray shows an uncomplicated right total knee arthroplasty. Left knee x-ray shows tricompartment osteoarthritis with moderate patellofemoral compartment and lateral compartment no acute osseous abnormality as shown. Bilateral hip with AP pelvis x-ray shows previous intertrochanteric fracture fixation of the proximal right femur. There is no acute osseous abnormality noted. Osteitis pubis. X-ray of right shoulders shows no acute osseous abnormality. There is severe before meals joint osteoarthritis and mild degenerative spurring of the glenohumeral joint. Chronic changes of rotator cuff tendinopathy are noted. CT interpreted by me (1pt min.). @ -None done U/S interpreted by me (1pt. min.). @ -None done What testing was considered but not performed or refused? (CT, X-rays, U/S, labs)? Why? @ -None What meds were considered but not given or refused? Why? @ -None Did you discuss the management of the patient with other professionals (professionals i.e. , PA, ANTIQUE CLOCKS REPAIRER, lab, RT, psych nurse, social science teacher, tube blower, teacher, signals officer, case maker)? Give summary @ -No Was smoking cessation discussed for >3mins.? @ -No Was critical care preformed (if so, how long)? @ -No Were there social determinants of health that impacted care today? How? (Homelessness, low income, unemployed, alcoholism, drug addiction, transportation, low edu. Level, literacy, decrease access to med. care, long term, rehab)? @ -No Was there de-escalation of care discussed even if they declined (Discuss DNR or withdrawal of care, Hospice)? DNR status @ -No What co-morbidities impacted this encounter? (DM, HTN, Smoking, COPD, CAD, Cancer, CVA, ARF, Chemo, Hep., AIDS, mental health diagnosis, sleep apnea, m orbid obesity)? @ -None Was patient admitted / discharged? Hospital course, mention meds given and route, prescriptions, significant lab abnormalities, going to OR and other pertinent info. @ -Discharge. Patient is 72-year-old female presented ER with chief complaint of a fall. Upon examination, patient was tender to palpitation bilateral hips. Patient received IV Toradol for pain control in the ER. Right knee x-ray shows an uncomplicated right total knee arthroplasty. Left knee x-ray shows tricompartment osteoarthritis with moderate patellofemoral compartment and lateral compartment no acute osseous abnormality as shown. Bilateral hip with AP pelvis x-ray shows previous intertrochanteric fracture fixation of the proximal right femur. There is no acute osseous abnormality noted. Osteitis pubis. X-ray of right shoulders shows no acute osseous abnormality. There is severe before meals joint osteoarthritis and mild degenerative spurring of the glenohumeral joint. Chronic changes of rotator cuff tendinopathy are noted. Upon reevaluation, patient's pain was not a 5 out of 10. I discussed with patient to use over-the- counter Tylenol or Motrin for pain control. Return parameters were discussed. Patient was advised to follow up with Dr. Cheng, her orthopedic surgeon, if pain persist. Patient will be discharged in stable condition with follow-up to PCP. Patient expressed understanding and agreement with care plan. Undiagnosed new problem with uncertain prognosis? @ -No Drug Therapy requiring intensive monitoring for toxicity (Heparin, Nitro, Insulin, Cardizem)? @ -No Were any procedures done? @ -No Diagnosis/symptom? @ -Right hip contusion Acute, or Chronic, or Acute on Chronic? @ -Acute Uncomplicated (without systemic symptoms) or Complicated (systemic symptoms)? @ -Uncomplicated Side effects of treatment? @ -No Exacerbation, Progression, or Severe Exacerbation? @ -No Poses a threat to life or bodily function? How? (Chest pain, USA, IA, pneumonia, PE, COPD, DKA, ARF, appy, cholecystitis, CVA, Diverticulitis, Homicidal, Suicidal, threat to staff... and all critical care pts) @ -No - Radiology Data Radiology results: report reviewed, image reviewed Disposition Clinical Impression: Fall Disposition: HOME SELF-CARE Condition: Stable Instructions (If sedation given, give patient instructions): Fall Prevention (ED) Additional Instructions: Please return to the Emergency Department if symptoms worsen or any other concerns. Please follow-up with Dr. hCeng is symptoms persist. Is patient prescribed a controlled substance at d/c from ED?: No Referrals: Thierno Patton DO [Primary Care Provider] - 1-2 days Time of Disposition: 12:52
[2023-06-12 11:50] VITALS: RESP 18; TEMP 97.7
--- NOTE | 2023-06-12 12:12 | XR ---
EXAMINATION TYPE: XR shoulder complete RT DATE OF EXAM: 06/12/2023 Comparison: None Clinical History: 72-year-old female pain after fall Findings: Moderate to severe degenerative change of the AC joint. There is some soft tissue swelling overlying the shoulder. There is irregularity and slight rounded contour of the greater tuberosity with some na rrowing of the subacromial space. Mild degenerative spurring of the glenohumeral joint. No acute frac ture, subluxation, or dislocation. Impression: 1. Changes of chronic rotator cuff tendinopathy, possible chronic underlying full-thickness rotator c uff tear. 2. Severe AC joint OA. Mild degenerative spurring at the glenohumeral joint. 3. No acute osseous abnormality seen.
--- NOTE | 2023-06-12 12:14 | XR ---
EXAMINATION TYPE: XR Hip 2 views Bilateral and AP pelvis DATE OF EXAM: 06/12/2023 COMPARISON: 05/01/2021 HISTORY: 72-year-old female fall and right hip pain FINDINGS: Hips appear symmetric and intact. Osteitis pubis. SI joints appear symmetric and intact. Previous antegrade intramedullary nail with screw fixation proximal right femur. The orthopedic hardw are appears intact. No periprosthetic fracture is clearly identified. Chronically displaced fragment of the lesser trochanter on the right. IMPRESSION: Previous intertrochanteric fracture fixation proximal right femur. No acute periprosthetic fracture i s identified. Osteitis pubis.
--- NOTE | 2023-06-12 12:16 | XR ---
EXAMINATION TYPE: XR knee complete bilateral DATE OF EXAM: 06/12/2023 COMPARISON: NONE HISTORY: 72-year-old female with pain after falling TECHNIQUE: 3 views each side FINDINGS: Left: There is tricompartmental degenerative spurring with at least mild joint space narrowing in the later al compartment and probably moderate in the patellofemoral compartment. Extensor mechanism is intact. No knee joint effusion. Right: Postsurgical change of right total knee arthroplasty. Both distal femoral and proximal tibial compone nts of the prosthesis are well seated without periprosthetic fracture. Alignment grossly anatomic. Ex tensor mechanism is intact. No joint effusion seen. IMPRESSION: 1. Right: Uncomplicated right total knee arthroplasty. 2. Left: Tricompartment osteoarthrosis, at least moderate in the patellofemoral compartment and at le ast mild in the lateral compartment. No acute osseous abnormality seen.
[2023-06-12 13:52] VITALS: BP 122/81; PULSE 83
== END 2023-06-12 13:50 | disposition home or self-care (01) ==
LOC: EC 11:18
DX: S70.01XA Contusion of right hip, initial encounter (principal); E11.9 Type 2 diabetes mellitus without complications; K21.9 Gastro-esophageal reflux disease without esophagitis; E78.5 Hyperlipidemia, unspecified; I10 Essential (primary) hypertension; E07.9 Disorder of thyroid, unspecified; M19.90 Unspecified osteoarthritis, unspecified site; Z86.59 Personal history of other mental and behavioral disorders; Z87.891 Personal history of nicotine dependence; Z79.890 Hormone replacement therapy; Z79.1 Long term (current) use of non-steroidal anti-inflammatories (NSAID); Z79.84 Long term (current) use of oral hypoglycemic drugs; Z79.899 Other long term (current) drug therapy; Z88.5 Allergy status to narcotic agent; Z88.8 Allergy status to other drugs, medicaments and biological substances; W01.0XXA Fall on same level from slipping, tripping and stumbling without subsequent striking against object, initial encounter
CPT/HCPCS: 73562; 73521; 73030; 99284; 96372; J1885

== ENCOUNTER 2023-06-26 13:22 | Emergency (ER) | payer MEDICARE, OTHER ==
--- NOTE | 2023-06-26 13:29 | ED ---
General Adult HPI - General Source: patient, RN notes reviewed Mode of arrival: ambulatory Limitations: no limitations <Thierno Ding - Last Filed: 06/26/23 13:29> <Paige Vides - Last Filed: 06/27/23 13:58> - General Stated complaint: leg pain Time Seen by Provider: 06/26/23 13:29 - History of Present Illness Initial comments: 72-year-old female presents emergency from via EMS chief complaint of right leg, rib injury. She states she fell couple weeks ago states that she's been having increasing pain. Family is also concerned about possible UTI and which patient does state that she's had these in the past. (Thierno Ding) 72-year-old female presents to the emergency department with complaints of right-sided rib pain and right leg pain. States that she took a fall a couple of weeks ago and has been having increased pain. Is also concerned for UTI as she has dysuria and suprapubic pain. States she had an infection a couple months ago and was treated at work or home with Levaquin. She denies hematuria. No fevers. No nausea or vomiting. No flank pain. No other alleviating, precipitating or modifying factors (Paige Vides) - Related Data Home Medications Medication Instructions Recorded Confirmed Ergocalciferol [Vitamin D2 (1250 1,250 unit PO Q14D 02/27/21 05/01/21 Mcg = 26427 Iu)] Ezetimibe [Zetia] 10 mg PO HS 02/27/21 05/01/21 Glimepiride [Amaryl] 1 mg PO DAILY 02/27/21 05/01/21 Levothyroxine Sodium [Synthroid] 125 mcg PO DAILY 02/27/21 05/01/21 Metoprolol Tartrate [Lopressor] 100 mg PO BID 02/27/21 05/01/21 Omeprazole [PriLOSEC] 20 mg PO DAILY PRN 02/27/21 05/01/21 Pravastatin Sodium [Pravachol] 80 mg PO HS 02/27/21 05/01/21 sitaGLIPtin [Januvia] 100 mg PO DAILY 02/27/21 05/01/21 Cyclobenzaprine [Flexeril] 10 mg PO PC-LUNCH 05/01/21 05/01/21 Eszopiclone [Lunesta] 2 mg PO HS PRN 05/01/21 05/01/21 Previous Rx's Medication Instructions Recorded clonazePAM [KlonoPIN] 2 mg PO BID #6 tab 03/08/21 Citalopram Hydrobromide [CeleXA] 10 mg PO DAILY tab 05/03/21 Cyclobenzaprine [Flexeril] 10 mg PO HS PRN #10 tab 05/03/21 Enoxaparin [Lovenox] 30 mg SQ DAILY #26 each 05/03/21 Famotidine [Pepcid] 20 mg PO BID tab 05/03/21 Ferrous Sulfate [Iron (65 MG 325 mg PO BID #60 tab 05/03/21 Elemental)] HYDROcodone/APAP 10-325MG [[place] 1 tab PO Q6HR PRN 3 Days #28 tab 05/03/21 10-325] INSULIN ASPART (NovoLOG) [NovoLOG 0 unit SQ ACHS ml 05/03/21 (formulary)] Mag Hydrox/Al Hydrox/Simeth 15 ml PO Q6HR PRN ml 05/03/21 [Maalox] Pramipexole Di-HCl [Mirapex] 1 mg PO HS #0 05/03/21 Sennosides-Docusate Sodium 2 each PO HS tab 05/03/21 [Senokot-S] clonazePAM 2 mg PO BID 3 Days #6 tab 05/03/21 traMADol HCl [Ultram] 50 mg PO TID #10 tab 05/03/21 Levofloxacin [Levaquin] 750 mg PO DAILY 1 Days #7 tab 06/26/23 Allergies Allergy/AdvReac Type Severity Reaction Status Date / Time ezetimibe [From Vytorin] AdvReac weakness Verified 06/12/23 11:27 gabapentin [From Neurontin] AdvReac weakness, Verified 06/12/23 11:27 leg pain morphine AdvReac Itching Verified 06/12/23 11:27 pregabalin [From Lyrica] AdvReac leg pain Verified 06/12/23 11:27 rosuvastatin [From Crestor] AdvReac leg pain Verified 06/12/23 11:27 simvastatin [From Vytorin] AdvReac weakness Verified 06/12/23 11:27 Review of Systems ROS Other: All systems not noted in ROS Statement are negative. <Thierno Ding - Last Filed: 06/26/23 13:29> ROS Other: All systems not noted in ROS Statement are negative. <Paige Vides - Last Filed: 06/27/23 13:58> ROS Statement: Those systems with pertinent positive or pertinent negative responses have been documented in the HPI. Past Medical History Past Medical History: Diabetes Mellitus, GERD/Reflux, Hyperlipidemia, Hypertension, Osteoarthritis (OA), Pneumonia, Thyroid Disorder Additional Past Medical History / Comment(s): hx migraines, varicose veins, neuropathy, "chicken shots in [place] knees", knees give out, hx thyroid nodues, TRK 03/05/21 History of Any Multi-Drug Resistant Organisms: None Reported Past Surgical History: Orthopedic Surgery Additional Past Surgical History / Comment(s): Right knee arthroscopy, thyroidectomy, polyps removed from vocal cords, Past Anesthesia/Blood Transfusion Reactions: No Reported Reaction Past Psychological History: Anxiety, Depression Smoking Status: Former smoker Past Alcohol Use History: None Reported Past Drug Use History: None Reported - Past Family History Father Family Medical History: Cancer Additional Family Medical History / Comment(s): lung <Thierno Ding - Last Filed: 06/26/23 13:29> General Exam <Thierno Ding - Last Filed: 06/26/23 13:29> General appearance: alert, in no apparent distress Head exam: Present: atraumatic, normocephalic, normal inspection Eye exam: Present: normal appearance, PERRL, EOMI. Absent: scleral icterus, conjunctival injection, periorbital swelling ENT exam: Present: normal exam, mucous membranes moist Neck exam: Present: normal inspection. Absent: tenderness, meningismus, lymphadenopathy Respiratory exam: Present: normal lung sounds bilaterally. Absent: respiratory distress, wheezes, rales, rhonchi, stridor Cardiovascular Exam: Present: regular rate, normal rhythm, normal heart sounds. Absent: systolic murmur, diastolic murmur, rubs, gallop, clicks GI/Abdominal exam: Present: soft, normal bowel sounds. Absent: distended, tenderness, guarding, rebound, rigid Extremities exam: Present: normal inspection, full ROM, normal capillary refill. Absent: tenderness, pedal edema, joint swelling, calf tenderness Back exam: Present: normal inspection Neurological exam: Present: alert, oriented X3, CN II-XII intact Psychiatric exam: Present: normal affect, normal mood Skin exam: Present: warm, dry, intact, normal color. Absent: rash <Paige Vides - Last Filed: 06/27/23 13:58> - General Exam Comments Initial Comments: Visual Physical Exam Vital signs reviewed General: Well-appearing, nontoxic, no acute distress. Head: Normocephalic, atraumatic Eyes: PERRLA, EOMI ENT: Airway patent Chest: Nonlabored breathing Skin: No visual rash, normal skin tone Neuro: Alert and oriented 3 Musculoskeletal: No gross abnormalities (Thierno Ding) Course Vital Signs 06/26/23 06/26/23 06/26/23 13:56 16:12 19:09 Temperature 98 F 98.6 F Pulse Rate 84 80 Respiratory 16 18 16 Rate Blood Pressure 103/69 122/82 O2 Sat by Pulse 96 97 Oximetry Medical Decision Making <Thierno Ding - Last Filed: 06/26/23 13:29> - Lab Data Result diagrams: 06/26/23 17:41 06/26/23 17:41 <Paige Vides - Last Filed: 06/27/23 13:58> - Medical Decision Making I completed the quick note portion of this chart signed Thierno Ding PA-C (Thierno Ding) Was pt. sent in by a medical professional or institution ([facility], [facility], urgent care, hospital, or skilled nursing...) When possible be specific @ -No Did you speak to anyone other than the patient for history (EMS, parent, family, police, friend...)? What history was obtained from this source @ -No Did you review nursing and triage notes (agree or disagree)? Why? @ -I reviewed and agree with nursing and triage notes Were old charts reviewed (outside hosp., previous admission, EMS record, old EKG, old radiological studies, urgent care reports/EKG's, skilled nursing records)? Report findings @ -No old charts were reviewed Differential Diagnosis (chest pain, altered mental status, abdominal pain women, abdominal pain men, vaginal bleeding, weakness, fever, dyspnea, syncope, headache, dizziness, GI bleed, back pain, seizure, CVA, palpatations, mental health, musculoskeletal)? @ -Differential Musculoskeletal Muscular strain, contusion, ligament sprain, fracture, arthritis, septic arthritis, bursitis, cellulitis, muscle spasm, nerve compression, DVT, arterial occlusion, herpes zoster, electrolyte abnormality, tumor.... This is not meant to be in all inclusive list EKG interpreted by me (3pts min.). @ -Not done X-rays interpreted by me (1pt min.). @ -Yes and demonstrates no acute fractures CT interpreted by me (1pt min.). @ -None done U/S interpreted by me (1pt. min.). @ -None done What testing was considered but not performed or refused? (CT, X-rays, U/S, labs)? Why? @ -None What meds were considered but not given or refused? Why? @ -None Did you discuss the management of the patient with other professionals (professionals i.e. , PA, TRIMMER CL[employer]BER, lab, RT, psych nurse, director social, warehouse incentive selector, teacher, fire management officer, case packer and sealer)? Give summary @ -No Was smoking cessation discussed for >3mins.? @ -No Was critical care preformed (if so, how long)? @ -No Were there social determinants of health that impacted care today? How? (Homelessness, low income, unemployed, alcoholism, drug addiction, transportation, low edu. Level, literacy, decrease access to med. care, senior living, rehab)? @ -No Was there de-escalation of care discussed even if they declined (Discuss DNR or withdrawal of care, Hospice)? DNR status @ -No What co-morbidities impacted this encounter? (DM, HTN, Smoking, COPD, CAD, Cancer, CVA, ARF, Chemo, Hep., AIDS, mental health diagnosis, sleep apnea, morbid obesity)? @ -None Was patient admitted / discharged? Hospital course, mention meds given and route, prescriptions, significant lab abnormalities, going to OR and other pertinent info. @ -Upon arrival the patient was placed in a hallway 26. Thorough history and physical exam was performed. Laboratory studies are conducted. Patient is sent for an x-ray of her right ribs, chest and right leg. Imaging is reviewed by myself and negative for any acute fractures. Patient does have urinalysis concerning for UTI. Patient will be initiated on antibiotics. Given her first dose in the emergency room. She'll be discharged home and instructed to take the medications as directed. Follow up with her primary care doctor to ensure that the infection has cleared. Return for new worsening symptoms. Patient agreeable plan she is discharged in stable condition Undiagnosed new problem with uncertain prognosis? @ -No Drug Therapy requiring intensive monitoring for toxicity (Heparin, Nitro, Insulin, Cardizem)? @ -No Were any procedures done? @ -No Diagnosis/symptom? @ -Fall, right rib and leg pain, acute UTI Acute, or Chronic, or Acute on Chronic? @ -Acute Uncomplicated (without systemic symptoms) or Complicated (systemic symptoms)? @ -Complicated Side effects of treatment? @ -ALLERGIC reaction Exacerbation, Progression, or Severe Exacerbation? @ -No Poses a threat to life or bodily function? How? (Chest pain, [place], [place], pneumonia, PE, COPD, DKA, ARF, appy, cholecystitis, CVA, Diverticulitis, Homicidal, Suicidal, threat to staff... and all critical care pts) @ -No (Paige Vides) - Lab Data Lab Results 06/26/23 06/26/23 06/26/23 Range/Units 16:43 17:41 17:41 WBC 8.8 (3.8-10.6) k/uL RBC 4.48 (3.80-5.40) m/uL Hgb 13.8 (11.4-16.0) gm/dL Hct 41.6 (34.0-46.0) % MCV 92.9 (80.0-100.0) fL MCH 30.8 (25.0-35.0) pg MCHC 33.2 (31.0-37.0) g/dL RDW 14.0 (11.5-15.5) % Plt Count 274 (150-450) k/uL MPV 7.6 Neutrophils % 77 % Lymphocytes % 15 % Monocytes % 5 % Eosinophils % 1 % Basophils % 0 % Neutrophils # 6.7 (1.3-7.7) k/uL Lymphocytes # 1.3 (1.0-4.8) k/uL Monocytes # 0.4 (0-1.0) k/uL Eosinophils # 0.1 (0-0.7) k/uL Basophils # 0.0 (0-0.2) k/uL Sodium 137 (137-145) mmol/L Potassium 4.4 (3.5-5.1) mmol/L Chloride 101 (98-107) mmol/L Carbon Dioxide 24 (22-30) mmol/L Anion Gap 12 mmol/L BUN 26 H (7-17) mg/dL Creatinine 1.01 (0.52-1.04) mg/dL Est GFR (CKD-EPI)AfAm 64 (>60 ml/min/1.73 sqM) Est GFR (CKD-EPI)NonAf 55 (>60 ml/min/1.73 sqM) Glucose 163 H (74-99) mg/dL Calcium 9.5 (8.4-10.2) mg/dL Total Bilirubin 0.5 (0.2-1.3) mg/dL AST 16 (14-36) U/L ALT 14 (4-34) U/L Alkaline Phosphatase 105 (38-126) U/L Total Protein 7.0 (6.3-8.2) g/dL Albumin 4.2 (3.5-5.0) g/dL Urine Color Light Yellow Urine Appearance Clear (Clear) Urine pH 5.5 (5.0-8.0) Ur Specific [place] 1.047 H (1.001-1.035) Urine Protein Negative (Negative) Urine Glucose (UA) 4+ H (Negative) Urine Ketones Negative (Negative) Urine Blood Negative (Negative) Urine Nitrite Positive H (Negative) Urine Bilirubin Negative (Negative) Urine Urobilinogen <2.0 (<2.0) mg/dL Ur Leukocyte Esterase Negative (Negative) Urine RBC 1 (0-5) /hpf Urine WBC 1 (0-5) /hpf Ur Squamous Epith Cells 1 (0-4) /hpf Urine Bacteria Occasional H (None) /hpf Urine Mucus Rare H (None) /hpf Disposition <Thierno Ding - Last Filed: 06/26/23 13:29> Is patient prescribed a controlled substance at d/c from ED?: No Time of Disposition: 18:55 <Paige Vides - Last Filed: 06/27/23 13:58> Clinical Impression: Fall, UTI (urinary tract infection) Disposition: HOME SELF-CARE Condition: Stable Instructions (If sedation given, give patient instructions): Urinary Tract Infe ction in Women (ED) Additional Instructions: Take antibiotics as directed starting tomorrow. Return for any new or worsening symptoms Prescriptions: Levofloxacin [Levaquin] 750 mg PO DAILY 1 Days #7 tab Referrals: None,Stated [REFERRING] - 1-2 days
--- NOTE | 2023-06-26 15:45 | XR ---
EXAMINATION TYPE: XR ribs RT w pa chest xray, 5 views DATE OF EXAM: 06/26/2023 COMPARISON: 05/01/2021 HISTORY: 72-year-old female with pain FINDINGS: Heart upper limits of normal in size. Aorta and pulmonary vasculature within normal limits. Hyperinfl ation and chronic appearing interstitial prominence. No consolidation or pleural effusion. Moderate t o severe degenerative changes bilateral AC joints. No displaced right rib fracture seen. IMPRESSION: COPD and chronic appearing changes. No displaced right rib fracture seen.
--- NOTE | 2023-06-26 15:52 | XR ---
EXAMINATION TYPE: XR femur RT DATE OF EXAM: 06/26/2023 COMPARISON: 06/12/2023 HISTORY: 72-year-old female with pain after falling TECHNIQUE: 2 views FINDINGS: There is antegrade intramedullary nail with screw fixation across the patient's IT fracture . Chronically displaced lesser trochanter fracture fragment noted. Mild degenerative axial joint spac e narrowing at the hip. Osteitis pubis. There is right total knee arthroplasty also present. No displaced fracture seen. IMPRESSION: Previous proximal femur fixation and previous right total knee arthroplasty. No hardware complication or acute osseous abnormality is seen.
[2023-06-26 17:38] LABS: Appearance,Urine Clear (Clear); Bacteria,Urine Occasional /hpf; Bilirubin,Urine Negative (Negative); Blood,Urine Negative (Negative); Color,Urine Light Yellow; Glucose,Urine (UA) 4+ (Negative); Ketones,Urine Negative (Negative); Leukocyte Esterase,Urine Negative (Negative); Mucus,Urine Rare /hpf; Nitrite,Urine Positive (Negative); PH, Urine 5.5 (5.0-8.0); Protein,Urine Negative (Negative); RBC,Urine 1 /hpf (0-5); Squamous Epithelial Cell,Urine 1 /hpf (0-4); Urobilinogen,Urine <2.0 mg/dL (<2.0); WBC,Urine 1 /hpf (0-5)
[2023-06-26 17:44] LABS: Specific Gravity,Urine 1.047 (1.001-1.035)
[2023-06-26 18:07] LABS: ALT 14 U/L (4-34); AST 16 U/L (14-36); African American GFR (CKD) 64 (>60 ml/min/1.73 sqM); Albumin 4.2 g/dL (3.5-5.0); Alkaline Phosphatase 105 U/L (38-126); Anion Gap 12 mmol/L; Blood Urea Nitrogen 26 mg/dL (7-17); Calcium 9.5 mg/dL (8.4-10.2); Carbon Dioxide 24 mmol/L (22-30); Chloride 101 mmol/L (98-107); Glucose 163 mg/dL (74-99); Non-African American GFR(CKD) 55 (>60 ml/min/1.73 sqM); Potassium 4.4 mmol/L (3.5-5.1); Sodium 137 mmol/L (137-145); Total Bilirubin 0.5 mg/dL (0.2-1.3)
[2023-06-26 18:27] LABS: Basophils % (A) 0 %; Eosinophils # (A) 0.1 k/uL (0-0.7); Eosinophils % (A) 1 %; HCT 41.6 % (34.0-46.0); HGB 13.8 gm/dL (11.4-16.0); Lymphocytes # (A) 1.3 k/uL (1.0-4.8); Lymphocytes % (A) 15 %; MCH 30.8 pg (25.0-35.0); MCHC 33.2 g/dL (31.0-37.0); MCV 92.9 fL (80.0-100.0); Mean Platelet Volume 7.6; Monocytes # (A) 0.4 k/uL (0-1.0); Monocytes % (A) 5 %; Neutrophils # (A) 6.7 k/uL (1.3-7.7); Neutrophils % (A) 77 %; Platelet Count 274 k/uL (150-450); RBC 4.48 m/uL (3.80-5.40); WBC 8.8 k/uL (3.8-10.6)
[2023-06-26] MEDS ORDERED: LEVOFLOXACIN 750 MG TAB PO STA (18:46)
[2023-06-26 19:15] VITALS: BP 122/82; PULSE 80; RESP 16; TEMP 98.6
== END 2023-06-26 19:10 | disposition home or self-care (01) ==
LOC: EC 13:22
DX: S29.9XXA Unspecified injury of thorax, initial encounter (principal); N39.0 Urinary tract infection, site not specified; E11.9 Type 2 diabetes mellitus without complications; E78.5 Hyperlipidemia, unspecified; I10 Essential (primary) hypertension; J44.9 Chronic obstructive pulmonary disease, unspecified; K21.9 Gastro-esophageal reflux disease without esophagitis; E07.9 Disorder of thyroid, unspecified; Z86.59 Personal history of other mental and behavioral disorders; Z79.899 Other long term (current) drug therapy; Z79.890 Hormone replacement therapy; Z87.891 Personal history of nicotine dependence; Z79.84 Long term (current) use of oral hypoglycemic drugs; Z88.5 Allergy status to narcotic agent; Z88.8 Allergy status to other drugs, medicaments and biological substances; W19.XXXA Unspecified fall, initial encounter
CPT/HCPCS: 36415; 80053; 81001; 85025; 99284

== ENCOUNTER → 2024-04-06 | Outpatient (CLI) | payer MEDICARE, OTHER ==
--- NOTE | 2024-04-06 13:34 | MM ---
Reason for Exam: Screening (asymptomatic). Last mammogram was performed 1 year(s) and 6 month(s) ago. Patient History: Menarche at age 11. First Full-Term at age 18. Postmenopausal. Patient used Hormonal Contraceptives for 3 years. Risk Values: Ban 5 year model risk: 1.3%. NCI Lifetime model risk: 3.0%. Prior Study Comparison: 12/15/2017 Bilateral Screening Mammogram, [facility]. 04/24/2020 Bilateral Screening Mammogram, [facility]. 10/15/2022 Bilateral MG 3D screening mammo w/cad, [facility]. Tissue Density: There are scattered areas of fibroglandular density. Findings: Analyzed By CAD. Right breast: There is no suspicious group of microcalcifications or new suspicious mass. Left breast: There is no suspicious group of microcalcifications or new suspicious mass. Overall Assessment: Negative, BI-RAD 1 Management: Screening Mammogram of both breasts in [address] [facility] will attempt to contact patient to return for supplemental views and ultrasound if indicated. Patient should continue monthly self-breast exams. A clinical breast exam by your physician is recommended on an annual basis. This exam should not preclude additional follow-up of suspicious palpable abnormalities. Note on Ban scores and lifetime risk: 1. A Ban score greater than 3% is considered moderate risk. If this is the case, consider specialist referral to assess eligibility for a risk reducing agent. 2. If overall lifetime risk for the development of breast cancer is 20% or higher, the patient may qualify for future screening with alternating mammogram and breast MRI. [facility], , 04/06/2024 1:26 PM. Electronically signed and approved by: Everardo Quijano DO
== END | disposition home or self-care (01) ==
LOC: RADMAMWWP 09:42
PROVIDERS: ATTEND Family Medicine
CPT/HCPCS: 77063; 77067